=== PATIENT | male | born 1975 | race Caucasian/White ===

== ENCOUNTER 2025-01-28 05:17 | Inpatient (IN) | payer MEDICAID, SELFPAY ==
[2025-01-28] VITALS (18 sets, daily range): BP systolic 16–159; BP diastolic 81–108; BMI 24.7; BMI 24.6
--- NOTE | 2025-01-28 00:42 | ED.GENMED ---
History of Present Illness
<Cliff Spence MD - Last Filed: 01/30/25 12:22>
General
Chief Complaint: Abdominal Pain
Source: patient
Exam Limitations: none
Time Seen by Provider: 01/28/25 00:28
Nursing documentation reviewed up to this point in time: agreed with
History of Present Illness
History of Present Illness:
Patient status post cholecystectomy in 2022 secondary to gallstone pancreatitis, presents to ED secondary to persistent intermittent upper abdominal pain associated with nausea and decreased appetite over the past 6 months. Abdominal pain described
as dull initially, which has become sharp today. Abdominal pain is similar to what she experienced 2 years ago when she had her gallbladder removed. Denies trauma. Denies fever or chills. Denies diarrhea. Denies recent change in medications or
diet. Denies difficulty urination. Denies back pain.
Review of Systems
<Cliff Spence MD - Last Filed: 01/30/25 12:22>
Review of Systems
Allergies reviewed?: Yes
All Other Systems: ROS reviewed and negative except as documented in HPI and ROS
Constitutional: Reports no symptoms; Denies fever
ABD/GI: Reports abdominal pain and nausea; Denies vomiting or diarrhea
: Reports no symptoms
Musculoskeletal: Reports no symptoms
Skin: Reports no symptoms
Neurological: Reports no symptoms
Phy Exam
<Cliff Spence MD - Last Filed: 01/30/25 12:22>
Physical Exam
Physical Exam:
Physical Exam
General: moderate painful distress, not acutely ill. afebrile
Head: nc/at. eomi
Neck: supple. normal range of motion
Heart: tachycardic
Lungs: no acute respiratory distress. clear bilaterally
Abdomen: normal bowel sounds. moderate epigastric/RUQ tenderness to palpation
Neuro: alert and oriented x 3. no focal neurological deficits
Skin: no rash
Psychiatric: well kept. interactive and cooperative
Extremities: no edema. no calf tenderness.
Course
<Cliff Spence MD - Last Filed: 01/30/25 12:22>
Orders/Labs/Results
Orders:
Orders
01/28/25 00:38
HYDROmorphone [Dilaudid] 0.5 mg IV NOW STA
Test Result ONCE
US Abdomen Complete/Upper Urgent
Comment:
Reason For Exam: RUQ pain
01/28/25 00:39
0.9% Sodium Chloride 500 ml [Nss] 500 ml IV BOLUS
Ondansetron Injectable [Zofran] 4 mg IV NOW STA
Pantoprazole [Protonix IV] 40 mg IV NOW STA
01/28/25 00:50
Complete Blood Count/With Diff Urgent
Comprehensive Metabolic Panel Urgent
Ferritin Urgent
Comment: ADD ON
HCG, Serum Qualitative Screen Urgent
Iron Urgent
Lipase Urgent
Total Iron Binding Urgent
01/28/25 01:40
Iohexol [Omnipaque] See Protocol PO NOW STA
01/28/25 01:41
CT Abd/pel W Iv And Oral Contr Urgent
Comment:
Reason For Exam: abd pain w abnormal US
01/28/25 04:12
HYDROmorphone [Dilaudid] 1 mg IV NOW STA
01/28/25 04:57
Admit/Transfer Patient As Directed
Co-Sign Provider:
Level of Care: Inpatient admission
Assign to:: Telemetry
Physician / Group: Pierre
Diagnosis: Abd Pain, Metastatic Disease
Reason for Telemetry: Arrhythmia
Date to Stop Telemetry: 01/31/25
Time to Stop Telemetry: 11:00
Reason for Hospitalization: Abd Pain, Metastatic Disease
Expected length of stay greater than two midnights?: Yes
ELOS- Estimated Length of Stay in days: 4
I certify the patient meets the requirements for IP care: Yes
01/28/25 04:58
PRN Pain Medication Management As Directed
May give lesser potent ordered pain med per pt: Yes
preference::
Protocol:: Medication orders for pain may be administered in a
manner that supports deferring to patient preference
when the pt is:
- Requesting an ordered lesser potent pain medication.
Least to most potent pain medications are defined
as: acetaminophen < NSAID < tramadol < opioids
(morphine, oxycodone, hydromorphone).
- Requesting a lesser dose of the same medication IF
ORDERED.
- Requesting a less intrusive route of administration
if both routes are prescribed by the provider (PO <
IV).
01/28/25 05:06
Code Status As Directed
Resuscitation Status: Full Code
01/28/25 Breakfast
NPO
Allow oral meds: Yes
Allow clear liquids: Sips of Clears
01/28/25 06:25
0.9% Sodium Chloride 1000 ml [Nss] 1,000 ml IV 125 mls/hr
Acetaminophen [Tylenol] 650 mg PO Q4HPRN PRN
HYDROmorphone [Dilaudid] 0.5 mg IV Q4HPRN PRN
Ondansetron Injectable [Zofran] 4 mg IV Q6HPRN PRN
Oxycodone [Roxicodone] 5 mg PO Q4HPRN PRN
01/28/25 06:25
Consult Notification Routine
Specialty to Notify: Gastroenterology
Date consulting provider notified: 01/28/25
Time consulting provider notified: 07:44
Notified:: Provider
Comment: Janay Mancini
Consult Notification Routine
Specialty to Notify: Oncology
Date consulting provider notified: 01/28/25
Time consulting provider notified: 07:47
Notified:: Provider
Comment: larry cantu
GASTROINTESTINAL CONSULT Routine
Consulting Provider: Fredis Coronado
Was physician already notified: No
Reason for consult: Suspected Gastro-esophageal malignancy with metastases
ONCOLOGY CONSULT Routine
Consulting Provider: Larry Cantu
Was physician already notified: No
Reason for consult: Suspected Gastroesophageal Cancer, Metastatic Disease
Activity As Directed
Activity Level: Ambulate
With Assistance
I/O [Intake/ Output] As Directed
Frequency: Per unit guidelines
Pneumatic Compression Sleeves As Directed
Type: Knee high
Vital Signs As Directed
Frequency: Per unit guidelines
Weight As Directed
Frequency: Daily
Oxygen Therapy [O2 Therapy] [RESP] Routine
Titrate/Wean O2 to maintain O2 sat greater than (%): 94
DX Deep Vein Thrombosis Video Routine
01/28/25 08:00
Pantoprazole [Protonix IV] 40 mg IV DAILY
01/28/25 17:24
Urinalysis Reflex To Culture Urgent
Date Specimen was Collected: 01/28/25
Time Specimen was Collected: 17:22
01/29/25 06:16
Complete Blood Count/No Diff IN AM
Magnesium IN AM
Phosphorus IN AM
01/31/25 11:00
DC Protocol for Telemetry ONCE
Abnormal Lab Results
01/28/25
00:50
WBC 20.0 H 10^3/uL
(4.8-10.8)
RBC 3.84 L 10^6/uL
(4.70-6.10)
Hgb 10.3 L g/dL
(13.0-18.0)
Hct 32.8 L %
(39.0-52.0)
MCH 26.8 L pg
(27.0-31.0)
MCHC 31.4 L g/dL
(33.0-37.0)
RDW 15.7 H %
(11.5-14.5)
Plt Count 1006 H 10^3/uL
(130-400)
Abs Immat Gran (auto) 0.1 H 10^3/uL
(0-0.05)
Absolute Neuts (auto) 15.3 H 10^3/uL
(1.4-6.5)
Absolute Monos (auto) 1.8 H 10^3/uL
(0.1-0.6)
Neutrophils % 76.1 H %
(42.2-75.2)
Lymphocytes % 13.7 L %
(20.5-51.1)
Sodium 134 L mmol/L
(135-145)
Creatinine 0.5 L mg/dL
(0.7-1.3)
Glucose 115 H mg/dl
(70-99)
Iron 32 L ug/dl
(49-181)
TIBC 249 L ug/dl
(261-462)
% Saturation 12 L %
(20-50)
Ferritin 735.0 H ng/ml
(17.9-464.0)
AST 88 H U/L
(17-59)
ALT 56 H U/L
(0-50)
Alkaline Phosphatase 870 H U/L
(38-126)
01/28/25 00:50
01/28/25 00:50
Vital Signs
Initial and Last Documented VS:
Initial Vital Signs
Temp Pulse Resp BP Pulse Ox
98.5 F 124 16 145/105 98
01/28/25 00:13 01/28/25 00:13 01/28/25 00:13 01/28/25 00:13 01/28/25 00:13
Last Documented Vital Signs
Temp Pulse Resp BP Pulse Ox
99.3 F 101 16 140/90 93
01/30/25 11:15 01/30/25 11:15 01/30/25 11:15 01/30/25 11:15 01/30/25 11:15
<Lucho Hood, DO - Last Filed: 01/28/25 04:36>
Orders/Labs/Results
Orders:
Orders
01/28/25 00:38
HYDROmorphone [Dilaudid] 0.5 mg IV NOW STA
Test Result ONCE
US Abdomen Complete/Upper Urgent
Comment:
Reason For Exam: RUQ pain
01/28/25 00:39
0.9% Sodium Chloride 500 ml [Nss] 500 ml IV BOLUS
Ondansetron Injectable [Zofran] 4 mg IV NOW STA
Pantoprazole [Protonix IV] 40 mg IV NOW STA
01/28/25 00:50
Complete Blood Count/With Diff Urgent
Comprehensive Metabolic Panel Urgent
Ferritin Urgent
Comment: ADD ON
HCG, Serum Qualitative Screen Urgent
Iron Urgent
Lipase Urgent
Total Iron Binding Urgent
01/28/25 01:40
Iohexol [Omnipaque] See Protocol PO NOW STA
01/28/25 01:41
CT Abd/pel W Iv And Oral Contr Urgent
Comment:
Reason For Exam: abd pain w abnormal US
01/28/25 04:12
HYDROmorphone [Dilaudid] 1 mg IV NOW STA
01/28/25 04:57
Admit/Transfer Patient As Directed
Co-Sign Provider:
Level of Care: Inpatient admission
Assign to:: Telemetry
Physician / Group: Pierre
Diagnosis: Abd Pain, Metastatic Disease
Reason for Telemetry: Arrhythmia
Date to Stop Telemetry: 01/31/25
Time to Stop Telemetry: 11:00
Reason for Hospitalization: Abd Pain, Metastatic Disease
Expected length of stay greater than two midnights?: Yes
ELOS- Estimated Length of Stay in days: 4
I certify the patient meets the requirements for IP care: Yes
01/28/25 04:58
PRN Pain Medication Management As Directed
May give lesser potent ordered pain med per pt: Yes
preference::
Protocol:: Medication orders for pain may be administered in a
manner that supports deferring to patient preference
when the pt is:
- Requesting an ordered lesser potent pain medication.
Least to most potent pain medications are defined
as: acetaminophen < NSAID < tramadol < opioids
(morphine, oxycodone, hydromorphone).
- Requesting a lesser dose of the same medication IF
ORDERED.
- Requesting a less intrusive route of administration
if both routes are prescribed by the provider (PO <
IV).
01/28/25 05:06
Code Status As Directed
Resuscitation Status: Full Code
01/28/25 Breakfast
NPO
Allow oral meds: Yes
Allow clear liquids: Sips of Clears
01/28/25 06:25
0.9% Sodium Chloride 1000 ml [Nss] 1,000 ml IV 125 mls/hr
Acetaminophen [Tylenol] 650 mg PO Q4HPRN PRN
HYDROmorphone [Dilaudid] 0.5 mg IV Q4HPRN PRN
Ondansetron Injectable [Zofran] 4 mg IV Q6HPRN PRN
Oxycodone [Roxicodone] 5 mg PO Q4HPRN PRN
01/28/25 06:25
Consult Notification Routine
Specialty to Notify: Gastroenterology
Date consulting provider notified: 01/28/25
Time consulting provider notified: 07:44
Notified:: Provider
Comment: Janay Mancini
Consult Notification Routine
Specialty to Notify: Oncology
Date consulting provider notified: 01/28/25
Time consulting provider notified: 07:47
Notified:: Provider
Comment: larry cantu
GASTROINTESTINAL CONSULT Routine
Consulting Provider: Fredis Coronado
Was physician already notified: No
Reason for consult: Suspected Gastro-esophageal malignancy with metastases
ONCOLOGY CONSULT Routine
Consulting Provider: Larry Cantu
Was physician already notified: No
Reason for consult: Suspected Gastroesophageal Cancer, Metastatic Disease
Activity As Directed
Activity Level: Ambulate
With Assistance
I/O [Intake/ Output] As Directed
Frequency: Per unit guidelines
Pneumatic Compression Sleeves As Directed
Type: Knee high
Vital Signs As Directed
Frequency: Per unit guidelines
Weight As Directed
Frequency: Daily
Oxygen Therapy [O2 Therapy] [RESP] Routine
Titrate/Wean O2 to maintain O2 sat greater than (%): 94
DX Deep Vein Thrombosis Video Routine
01/28/25 08:00
Pantoprazole [Protonix IV] 40 mg IV DAILY
01/28/25 17:24
Urinalysis Reflex To Culture Urgent
Date Specimen was Collected: 01/28/25
Time Specimen was Collected: 17:22
01/29/25 06:16
Complete Blood Count/No Diff IN AM
Magnesium IN AM
Phosphorus IN AM
01/31/25 11:00
DC Protocol for Telemetry ONCE
Abnormal Lab Results
01/28/25
00:50
WBC 20.0 H 10^3/uL
(4.8-10.8)
RBC 3.84 L 10^6/uL
(4.70-6.10)
Hgb 10.3 L g/dL
(13.0-18.0)
Hct 32.8 L %
(39.0-52.0)
MCH 26.8 L pg
(27.0-31.0)
MCHC 31.4 L g/dL
(33.0-37.0)
RDW 15.7 H %
(11.5-14.5)
Plt Count 1006 H 10^3/uL
(130-400)
Abs Immat Gran (auto) 0.1 H 10^3/uL
(0-0.05)
Absolute Neuts (auto) 15.3 H 10^3/uL
(1.4-6.5)
Absolute Monos (auto) 1.8 H 10^3/uL
(0.1-0.6)
Neutrophils % 76.1 H %
(42.2-75.2)
Lymphocytes % 13.7 L %
(20.5-51.1)
Sodium 134 L mmol/L
(135-145)
Creatinine 0.5 L mg/dL
(0.7-1.3)
Glucose 115 H mg/dl
(70-99)
Iron 32 L ug/dl
(49-181)
TIBC 249 L ug/dl
(261-462)
% Saturation 12 L %
(20-50)
Ferritin 735.0 H ng/ml
(17.9-464.0)
AST 88 H U/L
(17-59)
ALT 56 H U/L
(0-50)
Alkaline Phosphatase 870 H U/L
(38-126)
01/28/25 00:50
01/28/25 00:50
Vital Signs
Initial and Last Documented VS:
Initial Vital Signs
Temp Pulse Resp BP Pulse Ox
98.5 F 124 16 145/105 98
01/28/25 00:13 01/28/25 00:13 01/28/25 00:13 01/28/25 00:13 01/28/25 00:13
Last Documented Vital Signs
Temp Pulse Resp BP Pulse Ox
99.3 F 101 16 140/90 93
01/30/25 11:15 01/30/25 11:15 01/30/25 11:15 01/30/25 11:15 01/30/25 11:15
<Cliff Spence MD - Last Filed: 01/30/25 12:22>
MDM/Problems Addressed
MDM/Problems Addressed:
Ultrasound abdomen report reviewed, concerning for potential metastatic lesions. As such, CT abdomen pelvis with oral and IV contrast ordered. Initial pain improved with treatment
<Cliff Spence MD - Last Filed: 01/30/25 12:22>
*Pulse Oximetry
SaO2: 100
Oxygen Mode of Delivery: Room air
Patient hypoxic: no
*Critical Care Note
Total Time (30-74mins, 75-104mins- exclusive of procedures): Not Applicable
<Lucho Hood DO - Last Filed: 01/28/25 04:36>
Update Note
Update Note:
NAME: PRAVEEN VERDE
DATE OF EXAM: 01/28/2025
Patient No: [id number]
Physician: HELADIO
Date of : 1975
Past Medical History (entered by Technologist):
Reason For Exam (entered by Technologist):
Other Notes (entered by Technologist): Pt having intermitted RUQ abdominal pain and nauea for months; got so bad tonight she couldn't sleep. Nausea, no vomiting, some dry heaves. PMH of cholecystectomy years ago.
Additional Information (per [facility]iologist):
CT abdomen and pelvis with contrast
IMPRESSION:
Circumferential infiltrative mass involving the GE junction and gastric cardia
Appears to involve the diaphragmatic silviano
Few small regional lymph nodes
Innumerable low-attenuation liver metastases
Large expansile, destructive metastasis in the right anterior ninth rib
CBD stent in place
No biliary ductal dilation
Findings discussed with Dr. Hood
Case finalized on 01/28/25 04:14 EDT
Leonardo Donovan M.D.
This report has been electronically signed and verified by the Radiologist whose name is printed above.
I discussed the CAT scan findings with the patient. She is still requiring large amounts of pain medication. Patient to be admitted to the hospitalist service for continued pain management and further consultation.
ED Attending Note
<Cliff Spence MD - Last Filed: 01/30/25 12:22>
-
Portions of this chart may have been created with voice recognition software.� Occasional wrong word or��sound alike� substitutions may have occurred due to the inherent limitations of voice recognition software.
Discharge Plan
Departure
Patient Disposition: Admit
Date of Disposition: 01/28/25
Time of Disposition: 04:35
Admit to: Med/Surg
Presentation/result/management discussed w/ accepting MD/DO: Hospitalist
Discharge Problem:
Cancer associated pain, Abdominal pain
Interventions
Interventions:
*Risk Screen - Suicide Last Done: 01/28/25 00:13
*General Assessment Last Done: 01/28/25 00:27
*Neglect/Abuse Screening Last Done: 01/28/25 00:13
*ED- Fall Risk Assessment Last Done: 01/28/25 00:13
*ED COVID-19 Vaccine History Last Done: 01/28/25 00:13
*ED Influenza Vaccine History Last Done: 01/28/25 00:13
*Nursing Disposition Last Done: 01/28/25 06:24
[facility] Assessment Last Done: 01/28/25 00:33
Discharge Date and Time
Discharge Date/Time: 01/28/25 06:25
[2025-01-28] MEDS: ZOFRAN 4 MG IV ×2 (01:25→06:44)
[2025-01-28] MEDS: NSS 500 IV (01:26)
[2025-01-28] MEDS: DILAUDID 0.5 MG IV ×2 (01:26→06:44)
[2025-01-28] MEDS: PROTONIX IV 40 MG IV ×2 (01:26→09:10)
[2025-01-28 01:36] LABS: HCG, Serum Qualitative Screen Negative
[2025-01-28 01:41] LABS: ALT (SGPT) 56 U/L (0-50); AST (SGOT) 88 U/L (17-59); Albumin 3.7 g/dl (3.5-5.0); Alkaline Phosphatase 870 U/L (38-126); Blood Urea Nitrogen 17 mg/dl (9-20); Calcium 9.7 mg/dl (8.4-10.2); Carbon Dioxide 22 mmol/L (22-30); Chloride 100 mmol/L (98-107); Estimated Creatinine Clearance > 125 ml/min; Glucose 115 mg/dl (70-99); Lipase 23 U/L (23-300); Potassium 4.5 mmol/L (3.5-5.1); Sodium 134 mmol/L (135-145); Total Protein 7.8 g/dl (6.3-8.2); eGFR > 60.00
[2025-01-28] MEDS: OMNIPAQUE 50 ML PO (01:49)
[2025-01-28 01:53] LABS: Hematocrit 32.8 % (39.0-52.0); Hemoglobin 10.3 g/dL (13.0-18.0); Mean Corp Hgb Conc. 31.4 g/dL (33.0-37.0); Mean Corpuscular Volume 85.4 fL (80.0-94.0); Nucleated Red Blood Cells % 0 % (-); Platelet Count 1006 10^3/uL (130-400); Red Cell Dist. Width 15.7 % (11.5-14.5)
[2025-01-28] MEDS: DILAUDID 1 MG IV ×4 (04:17→23:06)
--- NOTE | 2025-01-28 05:12 | HPS.HSE ---
Family Physician
-
Family Physician: Betina Stauffer
Chief Complaint
-
Abd Pain
History of Present Illness
Patient is a 49y transgender F with PMH significant for psoriatic arthritis who presents to ED complaining of abdominal pain. Patient states that she has had dull, achy RUQ abdominal pain for the past 6-12 months or so. In that timeframe, she
has also had progressive difficulty swallowing and pain with swallowing - such that she eats / drinks very little at present. She has lost about 50 lbs in the past 6 months.
Patient has not noted any fevers / chills. No black / bloody stools.
Patient was last admitted in 2022 for acute cholecystitis / gallstone pancreatitis.
She was on Humira at that time, but lost her insurance shortly thereafter and has not been on any Rx medications for the past 2 years.
She has been taking a regimen of OTC Tylenol and Advil 400mg every 6 hours fairly consistently for the past 2 years.
This evening, her pain became suddenly sharper and more severe, prompting her to present to the ED for further evaluation.
Medical History
Past Medical History
Past Medical History: Reports Other
Additional Past Medical History:
Psoriatic Arthritis
Past Surgical History: Reports Other
Additional Past Surgical History:
Cholecystectomy (11/2022)
ERCP with Sphincterotomy and Plastic CBD Stent (11/2022)
Social History
Tobacco: Former Smoker (Quit smoking 25 years ago.)
Alcohol: None
Family History
Family History: Other (Father: CAD Paternal aunts, uncles, cousins with various malignancies.)
Allergies / Home Medications
Allergies reflects when Allergies were last updated in [facility].
Home Medications with original date entered in [facility]
Allergy/Medication List:
Allergies
Allergy/AdvReac Type Severity Reaction Status Date / Time
No Known Allergies Allergy Verified 01/28/25 00:12
Home Medications
No Meds [No Current Medications] 01/28/25
Review of Systems
-
History Source: Patient
A 12 point ROS was completed and negative except as noted: Yes
Constitutional: Reports Weight Loss and Fatigue; Denies Fever or Chills
EENT: Denies Sore Throat
Respiratory: Denies Cough or Trouble Breathing
Cardiac: Reports Chest Pain
Abdomen/GI: Reports Abdominal Pain, Nausea, Anorexia and Other (Odynophagia); Denies Vomiting, Diarrhea, Constipated, Bloody Stools or Black Stools
: Denies Dysuria or Frequency
Musculoskeletal: Reports Joint Pain; Denies Edema
Neurological: Denies Dizzy or Headache
Psych: Denies Depression or Anxiety
Physical Exam
Vital Signs
Vital Signs
Temp Pulse Resp BP Pulse Ox
98.5 F 124 16 132/92 98
01/28/25 00:13 01/28/25 00:13 01/28/25 00:13 01/28/25 03:00 01/28/25 03:00
Physical Exam
General: Other (Pale appearing 49y F in no acute distress.)
HEENT: Other (Dry MM. Neck supple.)
Respiratory: Clear; No Wheezes, Rales or Rhonchi
Cardiac: S1/S2 and Tachycardia; No Murmur
GI: Soft, Non Distended, Normal Bowel Sounds and Other (Pos tenderness and voluntary guarding RUQ and epigastric areas.)
Musculoskeletal: No Clubbing, No Cyanosis and Other (Pinpoint tenderness over R anterior ribs (8-10).)
Neuro: AO x 3
Laboratory Results
-
01/28/25 00:50
01/28/25 00:50
Laboratory Results
Total Bilirubin 0.8 mg/dl (0.2-1.3) 01/28/25 00:50
AST 88 U/L (17-59) H 01/28/25 00:50
ALT 56 U/L (0-50) H 01/28/25 00:50
Alkaline Phosphatase 870 U/L (38-126) H 01/28/25 00:50
Lipase 23 U/L (23-300) 01/28/25 00:50
Impression/Plan
-
A/P: Patient is a 49y transgender F with PMH significant for psoriatic arthritis not currently on active therapy who presents to ED complaining of abdominal pain.
Abdominal Pain
Odynophagia
Weight Loss
Anemia
Leukocytosis
Thrombocytosis
- Admit for further evaluation and treatment.
- CT scan done in the ED this evening shows circumferential mass at the GE junction / gastric cardia with extension to include the diaphragm and evidence of metastatic disease to the liver (multiple) and R 9th rib.
- History significant for progressive odynophagia and steady NSAID use x 2 years.
- Likely GI malignancy with evidence of metastases.
- GI evaluation / probable endoscopic exam and biopsies.
- Pain control / supportive care.
- NPO, IVFs for now.
- Oncology evaluation for additional recommendations / treatment plan post-biopsy results.
- Check iron studies - suspect chronic blood-loss anemia due to GI malignancy.
- Follow H&H and transfuse if needed.
Psoriatic Arthritis
- Not currently on Humira or other DMARD.
- Supportive care / pain control.
DVT Prophylaxis: SCDs
Code Status: Full
[2025-01-28] MEDS: NSS 1000 IV (06:42)
--- NOTE | 2025-01-28 06:49 | CON.GI ---
Addendum entered and electronically signed by Fredis Coronado DO 01/28/25 12:22:
I saw and examined the patient.
The SCHEDULING ASSISTANT's note was reviewed and I agree with the note.
Comment: Patient is a 49 y.o transgender female with past medical history significant for prior gallstone pancreatitis (s/p prior ERCP and lap yemi 2022) who represented with abdominal pain and dysphagia. Reports significant NSAID use as well over
the past several months for her pain. Primarily over her RUQ but denies any fevers, chills or other constitutional symptoms. Upon review, appears she was supposed to have stent removed back in 2022 however unfortunately never followed-up. Also
endorsing unintentional weight loss as well over the past 6 months. Given her worsening RUQ pain, presented to the ED for further evaluation. Labs on admission revealed chronically elevated leukocytosis along with elevated LFTs with AST 88, ALT 56
and ALP 870 with T Bili 0.8. Abdominal US on 01/28/25 with innumerable hypoechoic lesions throughout the liver, new compared to prior CT, concerning for hepatic metastases and evidence of prior cholecystectomy. CT Abd/pelvis on 01/28/25 again
revealed innumerable hepatic mets and mild hepatic enlargement along with bowel wall thickening at the GE-junction concern for esophageal carcinoma as well as enlarge LNs at the GE junction and expansile mets along the R rib. Previous concern for
possible PE given tachycardia and SOB however CT PE protocol negative. Clinically, her presentation is highly concerning for malignancy given her imaging suggestive of a GE-junction mass along with her imaging findings concerning for liver mets
along with her elevated LFTs with predominant elevations in ALP (infiltrative type pattern). Would benefit from an expedited EGD with EUS for further evaluation given this concern and for staging purposes as well given the lymphadenopathy.
Additionally, can coordinate stent removal as well given her previous retained CBD stent however without any symptoms to suggest biliary sepsis. Ultimately, pending her EGD would likely benefit from Oncology evaluation once her endoscopy has been
performed
Recommendations:
- Keep NPO
- Empiric PPI q daily
- Trend LFTs q daily
- Plan for EGD with EUS with Dr. Sharma today, 01/28/25, see same day EGD report for additional findings/recommendations
- Agree with checking tumor markers- AFP, CEA and CA 19-9
- Pending EGD/EUS, would recommend Oncology consult for further evaluation
- See rest of care as outlined below
GI will continue to follow. Discussed with primary internal medicine team. Please call with any questions or concerns.
Addendum entered and electronically signed by MAYRA Dumont 01/28/25 09:21:
with tachycardia and some complaints of shortness of breath and night sweats CT PE protocol added after review with medical team. Also added INR, AFP, CEA and Ca 19-9.
Original Note:
Consultation
-
Date/Time Consultation Requested: 01/28/25624
Date/Time Consultation Performed: 01/28/25 0650
Requesting Provider: Ramiro Jay DO
Performing Provider: MAYRA Flores, Fredis Coronado DO
Reason for Consultation: abnormal imaging
Medical History
Chief Complaint / HPI
Chief Complaint: abdominal pain
History of Present Illness:
Pt is 49yo with hx transgender without prior surgery, depression, anxiety, hypertriglyceridemia, asthma, psoriatic arthritis, gallstone pancreatitis with yemi and ERCP with stent placement in 2022 now presents with RUQ pain for last 6-12 months
with dysphagia and has been taking Tylenol and Advil for pain. In further review with patient after ERCP in 2022 was due for follow up for stent removal but did not return. Patient admits to loss of insurance. Pt was doing well til last year
onset of pain with wt loss up to 50 lb. Prior to admission was only taking milk and NSAID. Pain symptoms increased with severe right sided pain and presents to ER. On admission US and CT with concern for GE junction mass, liver mets, and rib met
with small nodes and CBD stent in place. labs with WBC 20,000, hbg 10.3, platelets 1006, Na 134, iron 32, TIBC 249, % sat 12, bili 0.8, AST 88, ALT 56, alk phos 870.
Pt otherwise admits to nausea with dry heaves, shortness of breath worse with steps, but denies dysphagia, GERD, hematemesis, diarrhea, constipation, blood or black in stool. No prior EGD/colon but had EUS with ERCP in 2022 with normal stomach
and esophagus at that time. No anticoagulation but admit to NSAID and Tylenol use prior to admission.
01/28/25 US abdomen - preliminary- innumerable heterogeneous hypoechoic masses in liver concerning for mets, post yemi, no bile duct dilatation, right kidney normal no free fluid
01/28/25 CT a/p - circumferential mass at GE junction and gastric cardia appears to involve diaphragmatic silviano, few small lymph nodes innumerable low attenuation liver mets, large expansile destructive mets right anterior ninth ribs, CBD stent in
place, no biliary ductal dilatation
final reading
1. Innumerable hepatic metastases. Mild hepatic enlargement.
2. Bowel wall thickening at the gastroesophageal junction, likely reflective of esophageal carcinoma.
3. Enlarged lymph nodes near the gastroesophageal junction, measuring up to 1.2 cm in diameter.
4. Expansile metastasis within the right anterior ninth rib, measuring 5.8 cm in greatest dimension.
Past Medical History
Past Medical History: Asthma, Psychiatric (anxiety,depression, transgender) and Other (psoriatic arthritis, gallstone pancreatitis )
Past Surgical History: Cholecystectomy and Other (biliary stent )
Social History
Tobacco: Former Smoker (quit age 25)
Alcohol: Occasional
Drug: None
Living: With Family (father )
Employment: Not Employed
Family History
Family History: Other (aunt with cancer )
Allergies / Home Medications
Allergy/AdvReac Type Severity Reaction Status Date / Time
No Known Allergies Allergy Verified 01/28/25 00:12
�Medication �Instructions �Recorded
No Meds [No Current Medications] 01/28/25
Review of Systems
-
History Source: Patient
Constitutional: Reports Weight Loss and Fatigue
EENT: Reports No Symptoms
Respiratory: Reports Trouble Breathing (with activity )
Abdomen/GI: Reports Abdominal Pain, Nausea and Other (decreased appetite )
: Reports No Symptoms
Musculoskeletal: Reports No Symptoms
Skin: Reports No Symptoms
Neurological: Reports No Symptoms and Weakness
Endocrine: Reports No Symptoms
Hematologic/Lymphatic: Reports No Symptoms
Vital Signs
Temp Pulse Resp BP Pulse Ox
98.3 F 134 20 159/98 94
01/28/25 06:39 01/28/25 06:39 01/28/25 06:39 01/28/25 06:39 01/28/25 06:39
Physical Exam
Exam
General: Other (pale appearing )
HEENT: Normocephalic and Anicteric
Respiratory: Clear
Cardiac: Other (tachy 106 on exam )
GI: Soft, Tender (mild with some increased pain right rib) and Distended (mild )
Musculoskeletal: No Clubbing and No Cyanosis
Skin: Warm and Dry
Neuro: Awake, Alert and AO x 3
Psych: Calm
Results
WBC 20.0 10^3/uL (4.8-10.8) H 01/28/25 00:50
Hgb 10.3 g/dL (13.0-18.0) L 01/28/25 00:50
Hct 32.8 % (39.0-52.0) L 01/28/25 00:50
MCV 85.4 fL (80.0-94.0) 01/28/25 00:50
Plt Count 1006 10^3/uL (130-400) H 01/28/25 00:50
Absolute Neuts (auto) 15.3 10^3/uL (1.4-6.5) H 01/28/25 00:50
Sodium 134 mmol/L (135-145) L 01/28/25 00:50
Potassium 4.5 mmol/L (3.5-5.1) 01/28/25 00:50
Chloride 100 mmol/L (98-107) 01/28/25 00:50
Carbon Dioxide 22 mmol/L (22-30) 01/28/25 00:50
BUN 17 mg/dl (9-20) 01/28/25 00:50
Creatinine 0.5 mg/dL (0.7-1.3) L 01/28/25 00:50
Calcium 9.7 mg/dl (8.4-10.2) 01/28/25 00:50
Total Bilirubin 0.8 mg/dl (0.2-1.3) 01/28/25 00:50
AST 88 U/L (17-59) H 01/28/25 00:50
ALT 56 U/L (0-50) H 01/28/25 00:50
Alkaline Phosphatase 870 U/L (38-126) H 01/28/25 00:50
Lipase 23 U/L (23-300) 01/28/25 00:50
Diagnostic Image Results:
01/28/25 US abdomen - preliminary- innumerable heterogeneous hypoechoic masses in liver concerning for mets, post yemi, no bile duct dilasttion, right kidney normal no free fluid
01/28/25 CT a/p - circumferential mass at GE junction and gastric cardia appears to involve diaphragmatic silviano, few small lymph nodes innumerable low attenuation liver mets, large expansile destructive mets right anterior ninth ribs, CBD stent in
place, no biliary ductal dilatation
final reading
1. Innumerable hepatic metastases. Mild hepatic enlargement.
2. Bowel wall thickening at the gastroesophageal junction, likely reflective of esophageal carcinoma.
3. Enlarged lymph nodes near the gastroesophageal junction, measuring up to 1.2 cm in diameter.
4. Expansile metastasis within the right anterior ninth rib, measuring 5.8 cm in greatest dimension.
Prior GI Procedures:
EGD: with EUS
Colonoscopy: none
11/22/22- EUS - Normal esophagus.
- No gross lesions in the entire stomach.
- Normal duodenal bulb, first portion of the duodenum
and second portion of the duodenum.
- There was no sign of significant pathology in the
pancreatic body.
- One stone was visualized endosonographically in the
distal common bile duct at the level of ampulla.
- No specimens collected.
11/22/22- ERCp-- Santhosh - The major papilla appeared normal.
- A filling defect consistent with a stone was seen on
the cholangiogram.
- Choledocholithiasis was found. Complete removal was
accomplished by biliary sphincterotomy and balloon
extraction.
- A biliary sphincterotomy was performed.
- The biliary tree was swept.
- One plastic stent was placed into the common bile
duct.
Assessment / Plan
-
Pt is 49yo with hx transgender without prior surgery, depression, anxiety, hypertriglyceridemia, asthma, psoriatic arthritis, gallstone pancreatitis with yemi and ERCP with stent placement in 2022 now presents with RUQ pain for last 6-12 months
with dysphagia and has been taking Tylenol and Advil for pain. In further review with patient after ERCP in 2022 was due for follow up for stent removal but did not return. Patient admits to loss of insurance. Pt was doing well til last year
onset of pain with wt loss up to 50 lb. Prior to admission was only taking milk and NSAID. Pain symptoms increased with severe right sided pain and presents to ER. On admission US and CT with concern for GE junction mass, liver mets, and rib met
with small nodes and CBD stent in place. labs with WBC 20,000, hbg 10.3, platelets 1006, Na 134, iron 32, TIBC 249, % sat 12, bili 0.8, AST 88, ALT 56, alk phos 870. Pt otherwise admits to nausea with dry heaves, shortness of breath worse with
steps, but denies dysphagia, GERD, hematemesis, diarrhea, constipation, blood or black in stool. No prior EGD/colon but had EUS with ERCP in 2022 with normal stomach and esophagus at that time. No anticoagulation but admit to NSAID and Tylenol use
prior to admission.
01/28/25 US abdomen - preliminary- innumerable heterogeneous hypoechoic masses in liver concerning for mets, post yemi, no bile duct dilatation, right kidney normal no free fluid
01/28/25 CT a/p - circumferential mass at GE junction and gastric cardia appears to involve diaphragmatic silviano, few small lymph nodes innumerable low attenuation liver mets, large expansile destructive mets right anterior ninth ribs, CBD stent in
place, no biliary ductal dilatation
final read: 1. Innumerable hepatic metastases. Mild hepatic enlargement.2. Bowel wall thickening at the gastroesophageal junction, likely reflective of esophageal carcinoma.3. Enlarged lymph nodes near the gastroesophageal junction, measuring up to
1.2 cm in diameter.4. Expansile metastasis within the right anterior ninth rib, measuring 5.8 cm in greatest dimension.
-abdominal pain with right sided rib pain
-concern for GE junction mass with mets on imaging
-tachycardia
-wt loss
-anemia
-leukocytosis
-thrombocytosis
-increased LFT's
-hx prior gallstone pancreatitis EUS/ERCP 2022 lost in follow up for stent removal
other med problems:
transgender without prior surgery, depression, anxiety, hypertriglyceridemia, asthma, psoriatic arthritis
PLAN:
etiology for symptoms concern for metastatic process-- GE junction mass with mets to liver, rib, nodes vs infectious as pt lost in follow up for biliary stent removal vs other
will review imaging with Dr. sharma- for EGD +/- EUS/ERCP to further eval for mass, stent removal
NPO
cont PPI
pneumatic compression stocking for prophylaxis
trend labs
for oncology eval
Pt updated on imaging and tentative plan for procedures today
reviewed with nursing staff
-
-
Thank you for consultation and allowing me to participate in the patient's care. Please call the sales operations coordinator GI physician during the after hours with any questions or concerns.
[2025-01-28 07:22] LABS: Iron 32 ug/dl (49-181)
[2025-01-28 07:32] LABS: Total Iron Binding Capacity 249 ug/dl (261-462)
--- NOTE | 2025-01-28 07:34 | W.PN.HOSP.TC ---
Today's Communication/Plan
-
Dilaudid 1 mg / 3 hours for severe pain
GI reconsulted for colonoscopy and a future biopsy follow-up
IV fluids 1 LR
Assessment / Plan
Assessment / Plan
49-year-old transgender F with past medical history of gallstone pancreatitis (cholecystectomy 2022], significant psoriatic arthritis on Humira 2 years ago(not taking because she lost her insurance) presented with abdominal pain.
# Abdominal pain secondary to CT scanning findings of metastasis:
WBC 20.0 high but WNL, Hb 10.3, platelet count 1006 high
Sodium 134 l, creatinine 0.5, glucose 115 high,
Iron studies: Iron 32 low, TIBC 249 low, saturation 12 low---chronic disease induced anemia.
01/28/25 US abdomen - preliminary- innumerable heterogeneous hypoechoic masses in liver concerning for mets, post yemi, no bile duct dilatation, right kidney normal no free fluid
01/28/25 CT a/p - circumferential mass at GE junction and gastric cardia appears to involve diaphragmatic silviano, few small lymph nodes innumerable low attenuation liver mets, large expansile destructive mets right anterior ninth ribs, CBD stent in
place, no biliary ductal dilatation
final reading
1. Innumerable hepatic metastases. Mild hepatic enlargement.
2. Bowel wall thickening at the gastroesophageal junction, likely reflective of esophageal carcinoma.
3. Enlarged lymph nodes near the gastroesophageal junction, measuring up to 1.2 cm in diameter.
4. Expansile metastasis within the right anterior ninth rib, measuring 5.8 cm in greatest dimension.
Currently on n.p.o.
IVF now NS receiving.
Monitor H&H,
GI consulted: Planning for scopy after the clearance of PE/tachycardia.
Dilaudid 1 mg / 3 hours for severe pain
GI reconsulted for colonoscopy and a future biopsy follow-up
IV fluids 1 LR
# Tachycardia:
BP 140/96, NE 130.
NE 130 regular rhythm, no murmurs.
Not on thyroid medications.
Ordered EKG.
Planning for CT scan chest with contrast but given the symptoms of tachycardia, shortness of breath as a differential diagnosis of pulmonary emboli.
# Psoriatic arthritis:
Patient currently not taking Humira.
Occasionally taking Tylenol.
DVT: SCDs
Code: Full
Anticipated Discharge: 24 - 48 hours
Subjective/Interval History
-
Date of Service: January 28, 2025
49-year-old transgender admitted to ER today trial: 48 with recurrent abdominal pain right upper quadrant, dull in nature, nonradiating for the past 6 months. Associated with nausea, and currently taking liquid form foods. Patient lost 50 pounds,
concern for loss of appetite, pain on her back, spine.
Currently the patient has no concern for chest pain, palpitation,dysphagia, GERD, hematemesis, diarrhea, constipation, blood or black in the stools, dizziness, fever, chills.
Objective Data
-
Labs:
Laboratory Results
01/28/25
00:50
WBC 20.0 H
Hgb 10.3 L
Hct 32.8 L
Plt Count 1006 H
Sodium 134 L
Potassium 4.5
Chloride 100
Carbon Dioxide 22
BUN 17
Creatinine 0.5 L
Glucose 115 H
Calcium 9.7
Total Bilirubin 0.8
AST 88 H
ALT 56 H
Alkaline Phosphatase 870 H
Vital Signs:
Vital Signs
Temp Pulse Resp BP Pulse Ox
98.3 F 134 20 159/98 94
01/28/25 06:39 01/28/25 06:39 01/28/25 06:39 01/28/25 06:39 01/28/25 06:39
Review of Systems
-
History Source: Patient
All other systems: Reviewed and negative
Physical Exam
-
General: Pain (07/24)
Respiratory: Clear to Auscultation
Cardiac: Regular Rhythm and Tachycardic
GI: Soft, Nondistended and Tender (Upper quadrants)
Musculoskeletal: No Clubbing
Neuro: AO x 3
Psych: Calm
[2025-01-28] MEDS: NSS (PRESERVATIVE FREE) 10 ML IV (09:11)
[2025-01-28 09:44] LABS: INR 1.20; PT 15.5 Sec (11.4-14.6)
--- NOTE | 2025-01-28 10:40 | PTCARENOTE ---
Patient c/o 11/24 right rib pain. Pain med not due yet. Physician made aware, order obtained for a dose of Dilaudid now.
[2025-01-28 11:30] LABS: CEA 534 ng/ml
--- NOTE | 2025-01-28 12:13 | PTCARENOTE ---
Patient having difficulty voiding. Patient able to void small amounts at a time. Bladder scanned for 386. Physician made aware, order for St Cath protocol.
--- NOTE | 2025-01-28 12:35 | CON.ONC ---
Documented by User: Flora Almazan MD, Resident 01/28/25 14:21
Consultation
-
Date Consultation Requested: 01/28/25
Date Consultation Performed: 01/28/25
Requesting Provider: Ramiro Jay DO
Performing Provider: Larry Cantu MD; Flora Almazan MD
Reason for Consultation: Suspected GE cancer
Impression
Impression
Abnormal CT findings: innumerable liver lesion with mild hepatomegaly, GEJ wall thickening with adjacent lymphadenopathy, expansile lesion in the right anterior 9th rib
Chronic leukocytosis
Iron Deficiency Anemia
Thrombocytosis
Elevated LFTs
Plan
Plan
WBC 20, Hgb 10.3, Iron 32, TIBC 249, %Sat 12, Platelet 1006, MPV normal , AST 88, ALT 56, ALP 870, CEA 534
-Planned EGD with EUS with Dr. Trevizo today-- await results
-Tumor markers- AFP, CA 19-19 pending
-Continue to trend CBC
-Will continue to follow with you
Patient History
History of Present Illness
The patient is 49-year-old MTF with a past medical history significant for psoriatic arthritis, major depressive disorder, and gallstone pancreatitis s/p ERCP and laparoscopic cholecystectomy, presenting with worsening abdominal pain.
The patient reports a 6�12 month history of generalized, persistent abdominal aching pain radiating to the back, chest and flank area that intermittently intensifies, with maximal pain localized to the right upper quadrant PS 6/10. Symptoms are
exacerbated by solid food intake and partially relieved with Tylenol and Advil. Over the past 6 months, the patient has experienced an unintentional ~50-pound weight loss and has mostly been limiting diet to liquid intake to avoid triggering the
abdominal pain. Intermittent diaphoresis also noted.
Yesterday, the pain acutely worsened into a sharp, stabbing pain rated 7-9/10, associated with dry heaves, thus prompting evaluation.
The patient denies fever, hematemesis, melena, hematochezia, vomiting, odynophagia, dysphagia, and shortness of breath.
CT abdomen/pelvis obtained on presentation reveals CT imaging shows innumerable ill-defined hypoattenuating, hypoenhancing liver lesions, consistent with hepatic metastasis with mild hepatomegaly, GEJ wall thickening suspicious for esophageal
carcinoma with adjacent lymphadenopathy, and a 5.8 cm expansile metastatic lesion of the right anterior ninth rib.�
Past-Medical/Surgical History
Psoriatic arthritis
Major Depressive Disorder
Gallstone Pancreatitis s/p ERCP and Lap Awa
Asthma
Patient Medication
�Medication �Instructions �Recorded �Confirmed �Last Taken �Type
No Meds [No Current Medications] 01/28/25 01/28/25 Unknown History
Active Medications
Generic Name Dose Route Start Last Admin
Trade Name Freq PRN Reason Stop Dose Admin
Acetaminophen 650 mg 01/28/25 06:25
Acetaminophen 325 Mg Tablet PO 02/25/25 06:24
Q4HPRN PRN
Mild Pain / Temp > 101
Enoxaparin Sodium 40 mg 01/28/25 18:00
Enoxaparin Sodium 40 Mg/0.4 Ml Syringe SC 02/25/25 17:59
QPM CHERI
Fentanyl Citrate 25 mcg 01/28/25 11:55
Fentanyl (50 Mcg/Ml) 100 Mcg/2 Ml Ampul IV 01/29/25 11:55
[id number] PRN
shivers
Fentanyl Citrate 50 mcg 01/28/25 11:55
Fentanyl (50 Mcg/Ml) 100 Mcg/2 Ml Ampul IV 01/29/25 11:55
PACU-Q5MPRN PRN
severe pain
Fentanyl Citrate 25 mcg 01/28/25 11:55
Fentanyl (50 Mcg/Ml) 100 Mcg/2 Ml Ampul IV 01/29/25 11:55
PACU-Q5MPRN PRN
moderate pain
Hydromorphone HCl 1 mg 01/28/25 11:48
Hydromorphone 1 Mg/Ml Carpuject IV 02/11/25 11:47
Q3HPRN PRN
moderate pain
Parenteral Electrolytes 1,000 mls @ 100 mls/hr 01/28/25 12:00
Normosol-R/Plasmalyte-A IV 01/29/25 11:55
PER PROTOCOL CHERI
Lactated Ringer's 1,000 mls @ 125 mls/hr 01/29/25 01:00
Lr IV
.Q8H CHERI
Ondansetron HCl 4 mg 01/28/25 06:25 01/28/25 06:44
Ondansetron 4 Mg/2 Ml Vial IV 02/25/25 06:24 4 mg
Q6HPRN PRN Administration
nausea and vomiting
Ondansetron HCl 4 mg 01/28/25 11:55
Ondansetron 4 Mg/2 Ml Vial IV 01/29/25 11:55
PACU-ONCEPRN PRN
nausea/vomiting
Oxycodone HCl 5 mg 01/28/25 06:25
Oxycodone 5 Mg Regular Release Tablet PO 02/11/25 06:24
Q4HPRN PRN
Moderate Pain
Pantoprazole Sodium 40 mg 01/28/25 08:00 01/28/25 09:10
Pantoprazole Sodium 40 Mg/10 Ml Vial IV 02/25/25 07:59 40 mg
DAILY CHERI Administration
Prochlorperazine Edisylate 5 mg 01/28/25 11:55
Prochlorperazine 10 Mg/2 Ml Vial IV 01/29/25 11:55
PACU-ONCEPRN PRN
nausea/vomiting
Sodium Chloride 0 flush 01/28/25 07:00
Sodium Chloride 0.9% (Flush) Syringe IV 02/25/25 06:59
PER PROTOCOL CHERI
Sodium Chloride 10 ml 01/28/25 08:00 01/28/25 09:11
Sodium Chloride 0.9% (Preservative Free) 10 Ml Vial IV 02/25/25 07:59 10 ml
DAILY CHERI Administration
Review of Systems
-
History Source: Patient
Constitutional: Reports Weight Loss, No Appetite and Fatigue; Denies Fever
EENT: Reports No Symptoms
Respiratory: Denies Cough or Trouble Breathing
Cardiac: Reports Diaphoresis; Denies Palpitations
GI: Reports Abdominal Pain (Generalized, most intense in RUQ), Nausea and Anorexia; Denies Vomiting, Diarrhea, Constipated, Bloody Stools or Black Stools
: Reports Flank Pain; Denies Dysuria or Difficulty Voiding
Musculoskeletal: Reports Joint Pain and NSAID Use
Skin: Reports No Symptoms
Neuro: Denies Weakness or Ataxia
Hematologic/Lymphatic: Reports No Symptoms
Psych: Reports Depressed
Physical Exam
-
General: No Apparent Distress and Conversant
Cardiology: Normal Sinus Rhythm, S1 and S2
Pulmonary: Clear
GI: Soft, Normal Bowel Sounds and Other (Tender- RUQ)
Musculoskeletal: No Clubbing, No Cyanosis and No Edema
Extremities: Pulses Present
Skin: Warm
Psych: Calm
Labs
Lab Results
WBC 20.0 10^3/uL (4.8-10.8) H 01/28/25 00:50
RBC 3.84 10^6/uL (4.70-6.10) L 01/28/25 00:50
Hgb 10.3 g/dL (13.0-18.0) L 01/28/25 00:50
Hct 32.8 % (39.0-52.0) L 01/28/25 00:50
MCV 85.4 fL (80.0-94.0) 01/28/25 00:50
MCH 26.8 pg (27.0-31.0) L 01/28/25 00:50
MCHC 31.4 g/dL (33.0-37.0) L 01/28/25 00:50
RDW 15.7 % (11.5-14.5) H 01/28/25 00:50
Plt Count 1006 10^3/uL (130-400) H 01/28/25 00:50
MPV 8.1 fL (7.4-10.4) 01/28/25 00:50
Abs Immat Gran (auto) 0.1 10^3/uL (0-0.05) H 01/28/25 00:50
Absolute Neuts (auto) 15.3 10^3/uL (1.4-6.5) H 01/28/25 00:50
Absolute Lymphs (auto) 2.7 10^3/uL (1.2-3.4) 01/28/25 00:50
Absolute Monos (auto) 1.8 10^3/uL (0.1-0.6) H 01/28/25 00:50
Absolute Eos (auto) 0.1 10^3/uL (0-0.7) 01/28/25 00:50
Absolute Basos (auto) 0.1 10^3/uL (0-0.2) 01/28/25 00:50
Immature Gran % 0.5 % (0-0.5) 01/28/25 00:50
Neutrophils % 76.1 % (42.2-75.2) H 01/28/25 00:50
Lymphocytes % 13.7 % (20.5-51.1) L 01/28/25 00:50
Monocytes % 8.9 % (1.7-9.3) 01/28/25 00:50
Eosinophils % 0.4 % (0-6) 01/28/25 00:50
Basophils % 0.4 % (0-2) 01/28/25 00:50
Creatinine 0.5 mg/dL (0.7-1.3) L 01/28/25 00:50
Vital Signs
Vital Signs
Temp Pulse Resp BP Pulse Ox
98.2 F 122 16 153/108 98
11/14/25 11:55 01/28/25 11:55 01/28/25 11:55 01/28/25 11:55 01/28/25 11:55

Documented by User: Larry Cantu MD 01/28/25 14:21
Plan
Plan
WBC 20, Hgb 10.3, Iron 32, TIBC 249, %Sat 12, Platelet 1006, AST 88, ALT 56, ALP 870, CEA 534
-Planned EGD with EUS with Dr. Trevizo today-- await results
-Tumor markers- AFP, CA 19-19 pending
Oncology Addendum:
Patient seen and evaluated and agree w/ R1 note and plan as outlined
-CT imaging w/ thickening at esophageal junction, hepatic lesions, enlarged GE junction nodes, and expansile mass right 9th rib
-CT imaging findings concerning for possible advanced esophageal malignancy
-EGD/EUS pending for pathology
-staging PET/CT imaging as outpt
-will await pathology and staging studies prior to additional discussion of potential treatment options
Will continue to follow with you.
--- NOTE | 2025-01-28 12:37 | CM ---
CM following re: discharge planning.
Reviewed pt's chart, met with pt.
Patient is a 49 y.o transgender female, admitted with primary dx of Abdominal pain. PMH: psoriatic arthritis.
Pt reports she lives with father 2SH, 2 steps to enter. Pt reports she lost her insurance due to not having job. HRSI specialist following. Insurance resources given to the pt.
PCP: [facility]
Pharmacy: [facility]
D/c plan: uncertain at this time and will depend on pt's progress.
CM will follow with discharge plan updates as hospitalization progresses
[2025-01-28 14:32] LABS: Ferritin 735.0 ng/ml (17.9-464.0)
[2025-01-28] MEDS: LR 1000 IV (14:33)
--- NOTE | 2025-01-28 15:12 | PTCARENOTE ---
Patient OOb in room with a steady gait, nausea and pain are improved at present. Reort given to GI lab. Patient sent ti GI lab with transport.
[2025-01-28 16:20] LABS: AFP Male/Tumor Marker 7100 ng/ml
--- NOTE | 2025-01-28 16:57 | PTCARENOTE ---
Received patient from PACU. Patient AAOx3, ambulated from stretcher to bathroom with a steady gait. PCT in to bladder scan patient. Patient wants to try to void on her own first.
[2025-01-28] MEDS: LOVENOX 40 MG SC (17:15)
[2025-01-28 17:54] LABS: Urine Character Clear (Clear)
[2025-01-28] MEDS: REGLAN 10 MG IV (17:57)
[2025-01-28 18:08] LABS: Urine Red Blood Cell 0-2 /HPF (0-2); Urine White Cell 0-2 /HPF (0-5)
[2025-01-29] MEDS: LR 1000 IV ×3 (01:04→17:30)
[2025-01-29] MEDS: DILAUDID 1 MG IV ×7 (02:40→23:13)
[2025-01-29 03:35] VITALS: BP 138/96
[2025-01-29 06:00] VITALS: BMI 25.1
[2025-01-29] MEDS: ZOFRAN 4 MG IV ×3 (06:20→23:12)
--- NOTE | 2025-01-29 07:03 | W.PN.GI.CBS2 ---
Addendum entered and electronically signed by Fredis Coronado DO 01/29/25 08:14:
I saw and examined the patient.
The BALING PRESS OPERATOR's note was reviewed and I agree with the note.
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 S/p biopsies and biliary stent removed. Reviewed EGD findings at bedside this AM and based on EGD and prior imaging,
highly concerning for malignancy. Ultimately, defer to Oncology for further evaluation while awaiting for path results. For now, recommend ongoing supportive care with PPI BiD and anti-emetics for nausea. Tolerating CLD and may ADAT as tolerated.
Agree with rest of care as outlined below.
Discussed with primary internal medicine team this AM and nursing. Path will be f/u with Dr. Trevizo. GI will sign-off, please call back with any questions or concerns.
Original Note:
Today's Communication / Plan
-
EGD as noted with concern for GE junction mass and imaging with concern for mets-- EGD report given to patient and reviewed
path pending
on clear diet-- took minimal overnight with just water and required antiemetics cont clear diet
reviewed with nursing if tolerating clear ok to advance to fulls-- if tolerating fulls then trial pureed-- discussed will also need supplement for nutrition
cont PPI
agree with Lovenox for DVT prophylaxis
trend labs-- AM labs pending
await oncology eval
work up per medical team for persistent tachycardia
support given with noted finding all questions answered
Assessment / Plan
-
Pt is 49yo with hx transgender without prior surgery, depression, anxiety, hypertriglyceridemia, asthma, psoriatic arthritis, gallstone pancreatitis with yemi and ERCP with stent placement in 2022 now presents with RUQ pain for last 6-12 months
with dysphagia and has been taking Tylenol and Advil for pain. In further review with patient after ERCP in 2022 was due for follow up for stent removal but did not return. Patient admits to loss of insurance. Pt was doing well til last year
onset of pain with wt loss up to 50 lb. Prior to admission was only taking milk and NSAID. Pain symptoms increased with severe right sided pain and presents to ER. On admission US and CT with concern for GE junction mass, liver mets, and rib met
with small nodes and CBD stent in place. labs with WBC 20,000, hbg 10.3, platelets 1006, Na 134, iron 32, TIBC 249, % sat 12, bili 0.8, AST 88, ALT 56, alk phos 870. Pt otherwise admits to nausea with dry heaves, shortness of breath worse with
steps, but denies dysphagia, GERD, hematemesis, diarrhea, constipation, blood or black in stool. No prior EGD/colon but had EUS with ERCP in 2022 with normal stomach and esophagus at that time. No anticoagulation but admit to NSAID and Tylenol use
prior to admission.
01/28/25 US abdomen - preliminary- innumerable heterogeneous hypoechoic masses in liver concerning for mets, post yemi, no bile duct dilatation, right kidney normal no free fluid
01/28/25 CT a/p - circumferential mass at GE junction and gastric cardia appears to involve diaphragmatic silviano, few small lymph nodes innumerable low attenuation liver mets, large expansile destructive mets right anterior ninth ribs, CBD stent in
place, no biliary ductal dilatation
final read: 1. Innumerable hepatic metastases. Mild hepatic enlargement.2. Bowel wall thickening at the gastroesophageal junction, likely reflective of esophageal carcinoma.3. Enlarged lymph nodes near the gastroesophageal junction, measuring up to
1.2 cm in diameter.4. Expansile metastasis within the right anterior ninth rib, measuring 5.8 cm in greatest dimension.
01/28/25- EGD Santhosh - Partially obstructing, malignant esophageal tumor was found in the lower third of the esophagus and at the gastroesophageal junction. Biopsied. Retained gastric fluid. Fluid aspiration performed. Biliary stent in the
duodenum. Removed. bx pending
-EGD with partially obstructing malignant appearing lower esophagus/GE junction mass
-imaging with GE junction mass with mets on imaging to liver/ribs
-abdominal pain with right sided rib pain
-tachycardia
-wt loss
-anemia
-leukocytosis
-thrombocytosis
-increased LFT's
-hx prior gallstone pancreatitis EUS/ERCP 2022 lost in follow up for stent removal-- s/p stent removal 01/28 with EGD
other med problems:
transgender without prior surgery, depression, anxiety, hypertriglyceridemia, asthma, psoriatic arthritis
PLAN:
EGD as noted with concern for GE junction mass and imaging with concern for mets-- EGD report given to patient and reviewed
path pending
on clear diet-- took minimal overnight with just water and required antiemetics cont clear diet
reviewed with nursing if tolerating clear ok to advance to fulls-- if tolerating fulls then trial pureed-- discussed will also need supplement for nutrition
cont PPI
agree with Lovenox for DVT prophylaxis
trend labs-- AM labs pending
await oncology eval
work up per medical team for persistent tachycardia
support given with noted finding all questions answered
Subjective
Subjective
Date of Service: January 29, 2025
01/26 yellow stool, on clear diet able to take some water but did have some Zofran and reglan for nausea s/p EGD results as noted
Objective
Data Reviewed
Laboratory Data:
Laboratory Results
PT 15.5 Sec (11.4-14.6) H 01/28/25 09:14
INR 1.20 01/28/25 09:14
Total Bilirubin 0.8 mg/dl (0.2-1.3) 01/28/25 00:50
AST 88 U/L (17-59) H 01/28/25 00:50
ALT 56 U/L (0-50) H 01/28/25 00:50
Alkaline Phosphatase 870 U/L (38-126) H 01/28/25 00:50
Lipase 23 U/L (23-300) 01/28/25 00:50
Vital Signs and I&O:
Vital Signs
Temp Pulse Resp BP Pulse Ox
99.2 F 108 18 138/96 96
01/29/25 03:35 01/29/25 03:35 01/29/25 03:35 01/29/25 03:35 01/29/25 03:35
I&O
01/28/25 01/29/25 01/30/25
06:59 06:59 06:59
Intake Total 360 / 360
Balance 360 / 360
Physical Exam
Physical Exam
HEENT: Anicteric and Moist mucous membranes
Cardiology: Other (tachy)
Pulmonary: Clear
GI: Soft, Distended (minimal ) and Tender (mild)
Extremities: No Edema
Neuro: Non Focal
[2025-01-29 07:20] VITALS: BP 131/94
[2025-01-29 08:14] LABS: Hematocrit 30.2 % (39.0-52.0); Hemoglobin 9.4 g/dL (13.0-18.0); Mean Corp Hgb Conc. 31.1 g/dL (33.0-37.0); Mean Corpuscular Volume 89.3 fL (80.0-94.0); Platelet Count 1009 10^3/uL (130-400); Red Cell Dist. Width 15.9 % (11.5-14.5)
[2025-01-29] MEDS: PROTONIX IV 40 MG IV (08:20)
[2025-01-29] MEDS: NSS (PRESERVATIVE FREE) 10 ML IV (08:20)
[2025-01-29 08:25] LABS: AST (SGOT) 130 U/L (17-59); Albumin 3.4 g/dl (3.5-5.0); Alkaline Phosphatase 855 U/L (38-126); Blood Urea Nitrogen 13 mg/dl (9-20); Calcium 9.4 mg/dl (8.4-10.2); Carbon Dioxide 23 mmol/L (22-30); Chloride 98 mmol/L (98-107); Estimated Creatinine Clearance > 125 ml/min; Glucose 95 mg/dl (70-99); Magnesium 1.9 mg/dl (1.6-2.3); Potassium 5.1 mmol/L (3.5-5.1); Sodium 132 mmol/L (135-145); Total Protein 7.2 g/dl (6.3-8.2); eGFR > 60.00
[2025-01-29 08:38] LABS: ALT (SGPT) 66 U/L (0-50)
--- NOTE | 2025-01-29 09:29 | W.PN.HOSP.TC ---
Today's Communication/Plan
-
Follow-up pathology
Follow-up CA 19-9
Plan for OP staging studies
Consideration for chemo/immunotherapy
Continue CLD and maintenance IVF for now
Assessment / Plan
Assessment / Plan
49-year-old transgender F with past medical history of gallstone pancreatitis (cholecystectomy 2022), significant psoriatic arthritis on Humira 2 years ago (not taking because she lost her insurance) presented with abdominal pain. CT findings
consistent with metastatic gastrointestinal malignancy with circumferential encasing the GE junction and likely metastases to the liver and ribs. 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
#Unspecified GE junction neoplasm with metastases
- Presented with abdomen pain, weight loss; CT A/P with circumferential GE mass and signs of metastases to ribs and liver
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
- Tumor markers were sent out after arrival, CEA and AFP levels very high; oncology planning for OP PET/CT
- Continue with twice daily PPI prophylactically for now
- Follow-up pathology and plan for OP PET/CT
- Follow-up CA 19-9 levels
#Sinus Tachycardia
- Likely physiologically driven by pain and anxiety from hospitalization
- Initial concern for PE though CTA PE protocol negative for emboli
- Improving with IV fluids and analgesia
- Continue on telemetry
#Psoriatic arthritis
- Has known diagnosis for which she previously took Humira
- No longer on Humira since losing health insurance 2 years ago
- No signs of acute flare at this time
#H/O cholecystitis
#H/O CBD stent s/p removal on 01/28/2025
Diet: CLD for now
DVT: SQ Lovenox
Code: Full
Dispo: Home when medically stable
Discussed with gastroenterology
Anticipated Discharge: > 48 hours
Subjective/Interval History
-
Date of Service: January 29, 2025
Seen and examined at the bedside. No acute events reported overnight. AFVSS this morning
White cell continuing to uptrend. Platelets up to 1000. Hemoglobin stable as are remainder of labs
Denies any new complaints today. Pain improved on higher dose Dilaudid
Objective Data
-
Labs:
Laboratory Results
01/29/25
06:16
WBC 26.6 H
Hgb 9.4 L
Hct 30.2 L
Plt Count 1009 H
Sodium 132 L
Potassium 5.1
Chloride 98
Carbon Dioxide 23
BUN 13
Creatinine 0.5 L
Glucose 95
Calcium 9.4
Total Bilirubin 0.9
AST 130 H
ALT 66 H
Alkaline Phosphatase 855 H
Vital Signs:
Vital Signs
Temp Pulse Resp BP Pulse Ox
99.4 F 106 20 131/94 92
01/29/25 07:20 01/29/25 07:20 01/29/25 07:20 01/29/25 07:20 01/29/25 07:20
I&O
01/28/25 01/29/25 01/30/25
06:59 06:59 06:59
Intake Total 360 / 360
Balance 360 / 360
Review of Systems
-
History Source: Patient
All other systems: Reviewed and negative
Physical Exam
-
General: Well Developed and No Apparent Distress; Negative Cachectic
HEENT: Normocephalic, Atraumatic, Moist Mucous Membranes and Anicteric
Respiratory: Clear to Auscultation and Non Labored Respirations; Negative Accessory Resp Muscle Use
Cardiac: Regular Rhythm and S1/S2; Negative Murmur, Rub or Gallop
GI: Soft, Nontender, Nondistended and Normal Bowel Sounds
Musculoskeletal: No Clubbing, No Cyanosis and No Edema
Skin: Warm and Dry; Negative Rash or Jaundice
Neuro: AO x 3, Nonfocal/Grossly Intact and Central Nerve's Intact
Psych: Calm
Data Reviewed
-
Labs: Labs Reviewed by me, Discussed with Physician and Discussed with Patient
[2025-01-29 15:36] VITALS: BP 134/96
[2025-01-29] MEDS: LOVENOX 40 MG SC (17:30)
[2025-01-29 19:44] VITALS: BP 151/95
[2025-01-29 23:46] VITALS: BP 130/84
[2025-01-30] MEDS: LR 1000 IV (01:52)
[2025-01-30] MEDS: DILAUDID 1 MG IV ×6 (02:40→21:22)
[2025-01-30 03:22] VITALS: BP 140/94
[2025-01-30 06:00] VITALS: BMI 26.0
[2025-01-30] MEDS: ZOFRAN 4 MG IV (06:18)
[2025-01-30 06:55] LABS: Hematocrit 26.3 % (39.0-52.0); Hemoglobin 8.2 g/dL (13.0-18.0); Mean Corp Hgb Conc. 31.2 g/dL (33.0-37.0); Mean Corpuscular Volume 88.0 fL (80.0-94.0); Nucleated Red Blood Cells % 0 % (-); Platelet Count 806 10^3/uL (130-400); Red Cell Dist. Width 15.8 % (11.5-14.5)
[2025-01-30 07:07] LABS: ALT (SGPT) 60 U/L (0-50); AST (SGOT) 114 U/L (17-59); Albumin 2.7 g/dl (3.5-5.0); Alkaline Phosphatase 747 U/L (38-126); Blood Urea Nitrogen 9 mg/dl (9-20); Calcium 8.7 mg/dl (8.4-10.2); Carbon Dioxide 26 mmol/L (22-30); Chloride 97 mmol/L (98-107); Estimated Creatinine Clearance > 125 ml/min; Glucose 115 mg/dl (70-99); Magnesium 1.6 mg/dl (1.6-2.3); Potassium 3.9 mmol/L (3.5-5.1); Sodium 127 mmol/L (135-145); Total Protein 6.3 g/dl (6.3-8.2); eGFR > 60.00
[2025-01-30 07:25] VITALS: BP 141/95
[2025-01-30] MEDS: NSS (PRESERVATIVE FREE) 10 ML IV (08:01)
[2025-01-30] MEDS: PROTONIX IV 40 MG IV (08:01)
--- NOTE | 2025-01-30 08:41 | W.PN.HOSP.TC ---
Today's Communication/Plan
-
Follow-up pathology
Check urine osmolality and urine sodium
60 ounce fluid restriction/maintenance IVF
Increase Dilaudid to 1.5 as needed
Assessment / Plan
Assessment / Plan
49-year-old transgender F with past medical history of gallstone pancreatitis (cholecystectomy 2022), significant psoriatic arthritis on Humira 2 years ago (not taking because she lost her insurance) presented with abdominal pain. CT findings
consistent with metastatic gastrointestinal malignancy with circumferential encasing the GE junction and likely metastases to the liver and ribs. 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 Pathology results pending.
Downtrending serum sodium on clear liquid diet
#Unspecified GE junction neoplasm with metastases
- Presented with abdomen pain, weight loss; CT A/P with circumferential GE mass and signs of metastases to ribs and liver
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
- Tumor markers were sent out after arrival, CEA and AFP levels very high; oncology planning for OP PET/CT
- Continue with daily PPI prophylactically for now
- Follow-up pathology and plan for OP PET/CT
- Follow-up CA 19-9 levels
#Euvolemic hypotonic hyponatremia
- Suspect polydipsia on CLD, though cannot rule out SIADH with underlying malignancy
- Does not seem overly hypovolemic despite limited intake on CLD
- Sodium 134 on arrival, down to 127 today; serum osm 273
- Ordered urine osmolality and urine sodium
- Start 60 ounce dietary fluid restriction
- Trend BMP
#Anemia of chronic disease
#Thrombocytosis
- Suspect both of these are reactive to underlying metastatic disease
- Iron studies with elevated ferritin and low TIBC; Hgb down trended with IVF
- Also has a significant reactive thrombocytosis with platelets between 800-1000
- Consider hydroxyurea for thrombocytosis, defer to oncology
- Continue to trend CBC with differential
#Sinus Tachycardia
- Likely physiologically driven by pain and anxiety from hospitalization
- Initial concern for PE though CTA PE protocol negative for emboli
- Improving with IV fluids and analgesia
- Continue on telemetry
#Urinary retention (?)
- Mentions that she has had episodes where it takes her a while to void
- Renal function stable, has been able to void after waiting periods of time
- Will start bladder scan protocol with straight cath as needed
#Psoriatic arthritis
- Has known diagnosis for which she previously took Humira
- No longer on Humira since losing health insurance 2 years ago
- No signs of acute flare at this time
#H/O cholecystitis C/B gallstone pancreatitis s/p cholecystectomy
#H/O CBD stent s/p removal on 01/28/2025
Diet: CLD, 60 oz FR
DVT: SQ Lovenox
Code: Full
Dispo: Home when medically stable
Discussed with gastroenterology
Anticipated Discharge: > 48 hours
Subjective/Interval History
-
Date of Service: January 30, 2025
Seen and examined at the bedside. No acute events reported overnight. AFVSS today
WBC remains elevated at 20.7, hemoglobin downtrending with fluids, platelet count remains elevated as well. Serum sodium today 127. LFTs stable
Continues to have some pain but responds partially to Dilaudid. Tolerating clear liquid diet. Denies any new complaints this morning
Objective Data
-
Labs:
Laboratory Results
01/30/25
06:19
WBC 20.7 H
Hgb 8.2 L
Hct 26.3 L
Plt Count 806 H D
Sodium 127 L
Potassium 3.9
Chloride 97 L
Carbon Dioxide 26
BUN 9
Creatinine 0.4 L
Glucose 115 H
Calcium 8.7
Total Bilirubin 0.9
AST 114 H
ALT 60 H
Alkaline Phosphatase 747 H
Vital Signs:
Vital Signs
Temp Pulse Resp BP Pulse Ox
98.5 F 108 20 141/95 92
01/30/25 07:25 01/30/25 07:25 01/30/25 07:25 01/30/25 07:25 01/30/25 07:25
I&O
01/29/25 01/30/25 01/31/25
06:59 06:59 06:59
Intake Total 360 / 360 2099
Balance 360 / 360 2099
Review of Systems
-
History Source: Patient
All other systems: Reviewed and negative
Physical Exam
-
General: Well Developed, No Apparent Distress and Appears Chronically Ill
HEENT: Normocephalic, Atraumatic, Moist Mucous Membranes and Anicteric
Respiratory: Clear to Auscultation and Non Labored Respirations; Negative Accessory Resp Muscle Use
Cardiac: Regular Rhythm, S1/S2 and Tachycardic (rate 100); Negative Murmur, Rub or Gallop
GI: Soft, Nontender, Nondistended and Normal Bowel Sounds
Musculoskeletal: No Clubbing, No Cyanosis and No Edema
Skin: Warm and Dry; Negative Rash or Jaundice
Neuro: AO x 3, Nonfocal/Grossly Intact and Central Nerve's Intact
Psych: Calm
Data Reviewed
-
Labs: Labs Reviewed by me and Discussed with Patient
[2025-01-30] MEDS: NSS 1000 IV ×2 (08:44→17:43)
[2025-01-30 11:15] VITALS: BP 140/90
[2025-01-30] MEDS: DILAUDID 0.5 MG IV ×3 (12:13→21:21)
[2025-01-30 13:32] LABS: CA 19-9 433 U/mL (<=35)
[2025-01-30 16:29] VITALS: BP 150/97
[2025-01-30] MEDS: LOVENOX 40 MG SC (17:37)
[2025-01-30 19:00] VITALS: BP 138/93
[2025-01-30 23:00] VITALS: BP 148/93
[2025-01-31] MEDS: DILAUDID 1 MG IV ×8 (00:35→23:41)
[2025-01-31] MEDS: DILAUDID 0.5 MG IV ×8 (00:36→23:41)
[2025-01-31] MEDS: ZOFRAN 4 MG IV ×4 (00:36→20:35)
[2025-01-31 03:00] VITALS: BP 137/89
[2025-01-31] MEDS: NSS 1000 IV ×2 (03:45→13:48)
--- NOTE | 2025-01-31 04:13 | PTCARENOTE ---
At 0352, Patient states she sat on the toilet for about a half hour until she could passed urine. Per order, pt was bladder scanned and straight cath 500ml Yessi urine.
[2025-01-31 04:42] VITALS: BMI 26.1
[2025-01-31 07:00] VITALS: BP 137/87
--- NOTE | 2025-01-31 08:17 | W.PN.HOSP.TC ---
Today's Communication/Plan
-
See plan
Assessment / Plan
Assessment / Plan
Physical Exam
General: Well Developed, No Apparent Distress and Appears Chronically Ill
HEENT: Normocephalic, Atraumatic, Moist Mucous Membranes
Respiratory: Clear to Auscultation and Non Labored Respirations; Negative Accessory Resp Muscle Use
Cardiac: Regular Rhythm, S1/S2
GI: Soft, Nontender, Nondistended and Normal Bowel Sounds
Musculoskeletal: No Cyanosis and No Edema
Skin: Warm and Dry
Neuro: AO x 3, Nonfocal/Grossly Intact and Central Nerve's Intact
Psych: Calm
Assessment/Plan
49-year-old transgender F with past medical history of gallstone pancreatitis (cholecystectomy 2022), significant psoriatic arthritis on Humira 2 years ago (not taking because she lost her insurance) presented with abdominal pain. CT findings
consistent with metastatic gastrointestinal malignancy with circumferential encasing the GE junction and likely metastases to the liver and ribs. 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 Pathology results pending.
Downtrending serum sodium on clear liquid diet
#Unspecified GE junction neoplasm with metastases
- Presented with abdomen pain, weight loss; CT A/P with circumferential GE mass and signs of metastases to ribs and liver
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
- Tumor markers were sent out after arrival, CEA and AFP levels very high; oncology planning for OP PET/CT
- Continue with daily PPI prophylactically for now
- Follow-up pathology and plan for OP PET/CT
- CA 19-9 level high at 433
- IR biopsy of hepatic lesion requested -- the concern is the high AFP with hepatocellular carcinoma in the differential diagnosis
#Euvolemic hypotonic hyponatremia
- Suspect polydipsia on CLD, though cannot rule out SIADH with underlying malignancy
- Does not seem overly hypovolemic despite limited intake on CLD
- Sodium 134 on arrival, down to 127 today; serum osm 273
- Ordered urine osmolality and urine sodium support SIADH
- Continue 60 ounce dietary fluid restriction
- Trend BMP
#Anemia of chronic disease
#Thrombocytosis
- Suspect both of these are reactive to underlying metastatic disease
- Iron studies with elevated ferritin and low TIBC; Hgb down trended with IVF
- Also has a significant reactive thrombocytosis with platelets between 800-1000
- Consider hydroxyurea for thrombocytosis, defer to oncology
- Continue to trend CBC with differential
#Sinus Tachycardia
- Likely physiologically driven by pain and anxiety from hospitalization
- Initial concern for PE though CTA PE protocol negative for emboli
- Improving with IV fluids and analgesia
- Continue on telemetry
#Urinary retention (?)
- Mentions that she has had episodes where it takes her a while to void
- Renal function stable, has been able to void after waiting periods of time
- Will start bladder scan protocol with straight cath as needed
#Psoriatic arthritis
- Has known diagnosis for which she previously took Humira
- No longer on Humira since losing health insurance 2 years ago
- No signs of acute flare at this time
#H/O cholecystitis C/B gallstone pancreatitis s/p cholecystectomy
#H/O CBD stent s/p removal on 01/28/2025
Diet: CLD, 60 oz FR
DVT: Holding SQ Lovenox for liver biopsy tomorrow
Code: Full
Dispo: Home when medically stable
Anticipated Discharge: > 48 hours
Subjective/Interval History
-
Date of Service: January 31, 2025
Patient was seen and examined. She reported no new symptoms or complaints.
Objective Data
-
Labs:
Laboratory Results
01/31/25
08:13
WBC Pending
Hgb Pending
Hct Pending
Plt Count Pending
Sodium Pending
Potassium Pending
Chloride Pending
Carbon Dioxide Pending
BUN Pending
Creatinine Pending
Glucose Pending
Calcium Pending
Total Bilirubin Pending
AST Pending
ALT Pending
Alkaline Phosphatase Pending
Vital Signs:
Vital Signs
Temp Pulse Resp BP Pulse Ox
98.5 F 101 18 137/89 96
01/31/25 03:00 01/31/25 03:00 01/31/25 03:00 01/31/25 03:00 01/31/25 03:00
I&O
01/30/25 01/31/25 02/01/25
06:59 06:59 06:59
Intake Total 2099 / 2099 2800 / 2800
Output Total 500 / 500
Balance 2099 / 2099 2300 / 2300
[2025-01-31] MEDS: NSS (PRESERVATIVE FREE) 10 ML IV (08:36)
[2025-01-31] MEDS: PROTONIX IV 40 MG IV (08:36)
[2025-01-31 08:45] LABS: Hematocrit 25.6 % (39.0-52.0); Hemoglobin 7.8 g/dL (13.0-18.0); Mean Corp Hgb Conc. 30.5 g/dL (33.0-37.0); Mean Corpuscular Volume 88.0 fL (80.0-94.0); Nucleated Red Blood Cells % 0 % (-); Red Cell Dist. Width 15.9 % (11.5-14.5)
[2025-01-31 10:13] LABS: ALT (SGPT) 60 U/L (0-50); AST (SGOT) 91 U/L (17-59); Albumin 2.5 g/dl (3.5-5.0); Alkaline Phosphatase 535 U/L (38-126); Blood Urea Nitrogen 6 mg/dl (9-20); Calcium 8.2 mg/dl (8.4-10.2); Carbon Dioxide 25 mmol/L (22-30); Chloride 101 mmol/L (98-107); Estimated Creatinine Clearance > 125 ml/min; Glucose 115 mg/dl (70-99); Magnesium 1.7 mg/dl (1.6-2.3); Potassium 3.7 mmol/L (3.5-5.1); Sodium 129 mmol/L (135-145); Total Protein 5.9 g/dl (6.3-8.2); eGFR > 60.00
--- NOTE | 2025-01-31 10:35 | VATNOTE ---
Noted slight puffiness in right upper arm proximal to IV insertion site. Pt. stated it is unchanged. Denies pain. No redness or warmth. IV flushed easily with 3ml NSS twice with no change. Pt. declines offer of a restart at this time. Will
continue to assess.
[2025-01-31 11:00] VITALS: BP 133/82
[2025-01-31 11:31] LABS: Platelet Count 674 10^3/uL (130-400)
[2025-01-31] MEDS: BENADRYL 12.5 MG IV (13:48)
--- NOTE | 2025-01-31 14:22 | CM ---
CM following re: discharge planning.
Reviewed pt's chart, met with pt.
Per chart review, continue supportive care.
HRSI following.
Pt lives with father 2SH, 2 steps to enter.
D/c plan: home with family.
CM will follow with discharge plan updates as hospitalization progresses
[2025-01-31 15:00] VITALS: BP 134/84
--- NOTE | 2025-01-31 17:40 | PTCARENOTE ---
patient reported that she sat on the toilet trying to urinate for an hour. previous bladder scan 365 ml. patient requested to be straight cathed. she had 550 ml urine output from straight cath
--- NOTE | 2025-01-31 19:18 | W.PN.ONC2 ---
Today's Communication / Plan
-
Suggest image-guided liver biopsy, d/w hospitalist attending and IR.
Impression
Impression
Abnormal CT findings: innumerable liver lesion with mild hepatomegaly, GEJ wall thickening with adjacent lymphadenopathy, expansile lesion in the right anterior 9th rib
Chronic leukocytosis
Anemia of inflammation
Thrombocytosis
Elevated LFTs
Marked elevations in AFP, CA 19-9, CEA
Anemia
Cancer-related pain
Plan
Plan
Suggest biopsy of liver lesion given pt's very high AFP which is unexpected for an esophageal CA, more consistent with HCC, germ cell tumor, benign liver conditions.
Discussed with pt, she is amenable.
Iron studies and thrombocythemia consistent with anemia of chronic disease +/- iron def.
Pain reasonably controlled currently.
Await path from esophageal mass biospy.
Subjective/Objective
Chief Complaint
Heme/Onc follow up of esophageal mass with liver mets and 9th rib met
Subjective
c/o pain in lower posterolateral ribs, R scapula and pain down R side of spine. States that she gets queasy but the pain and nausea meds help.
Vital Signs:
Vital Signs
Temp Pulse Resp BP Pulse Ox
99.9 F 97 20 134/84 95
01/31/25 15:00 01/31/25 15:00 01/31/25 15:00 01/31/25 15:00 01/31/25 15:00
Lab Results:
Laboratory Data
WBC 20.8 10^3/uL (4.8-10.8) H 01/31/25 08:13
Hgb 7.8 g/dL (13.0-18.0) L 01/31/25 08:13
Plt Count 674 10^3/uL (130-400) H 01/31/25 08:13
PT 15.5 Sec (11.4-14.6) H 01/28/25 09:14
INR 1.20 01/28/25 09:14
eGFR > 60.00 01/31/25 08:13
Physical Exam
Appears awake, alert, non-toxic
HEENT: Moist Mucous Membranes; No Jaundice
Cardiology: Normal Sinus Rhythm, S1 and S2
Pulmonary: Clear; No Wheezes
GI: Soft and Normal Bowel Sounds
Extremities: No C/C/E
Neuro: Non Focal
[2025-01-31 19:19] VITALS: BP 121/86
[2025-01-31 23:26] VITALS: BP 135/84
[2025-02-01] VITALS (9 sets, daily range): BP systolic 89–138; BP diastolic 63–95; BMI 26.5
[2025-02-01] MEDS: ZOFRAN 4 MG IV ×3 (02:52→19:34)
[2025-02-01] MEDS: DILAUDID 0.5 MG IV ×7 (02:52→22:58)
[2025-02-01] MEDS: DILAUDID 1 MG IV ×7 (02:52→22:58)
[2025-02-01 09:00] LABS: Hematocrit 26.2 % (39.0-52.0); Hemoglobin 8.4 g/dL (13.0-18.0); Mean Corp Hgb Conc. 32.1 g/dL (33.0-37.0); Mean Corpuscular Volume 85.1 fL (80.0-94.0); Nucleated Red Blood Cells % 0 % (-); Platelet Count 822 10^3/uL (130-400); Red Cell Dist. Width 15.6 % (11.5-14.5)
--- NOTE | 2025-02-01 09:04 | PN.CDI ---
CDI
- -
CDI:
Physician Documentation Request
Admit Date: 01/28/25 05:17
Dear Doctor James,
Clinical Indicators:
The diagnosis of severe protein calorie malnutrition was documented on 01/28, but is not consistently noted in subsequent documentation.
01/31 note/assessment: -'Weight loss ~50lb x 6 months
-'pt meets criteria for severe protein calorie malnutrition of chronic illness with
27% weight loss x 6-12 months, prolonged inadequate po intake <75% estimated
needs for > 1 month.'
Treatment: Ensure BID
Based on the above information and your assessment, which of the following most accurately represents the patient's nutritional status?
Severe Protein Calorie Malnutrition
Other (please specify)
[place] Criteria ([facility] 2017)
2 or more criteria must be present for either
non severe or severe malnutrition
Note that the criteria differs related to the
presence of an acute or chronic illness
Chronic Illness
Energy Intake Non Severe: <75% for >1 month
Severe: <75% for >1 month
Weight Loss Non Severe: 5% over 1 month
7.5% over 3 months
10% over 6 months
20% over 1 year
Severe: >5% over 1 month
>7.5% over 3 months
>10% over 6 months
>20% over 1 year
Body Fat Non Severe: Mild Loss
Severe: Severe Loss
Muscle Mass Non Severe: Mild Loss
Severe: Severe Loss
Fluid Accumulation Non Severe: Mild Accumulation
Severe: Moderate to severe
accumulation
Reduced Embosser Operator Strength Non Severe: N/A
Severe: Measurably reduced
Additional criteria that can be used to Determine if Mild or Moderate Malnutrition ([employer]ck Manual 2018)
Mild Moderate Severe
Albumin gm/dl <3.0 gm/dl <2.5 gm/dl <2.0 gm/dl
Pre Albumin mg/dl <15 gm/dl <10 mg/dl <5.0 mg/dl
BMI <18.5 <17 <16
Use of terms such as suspected, likely, concern for, or probable (associated with a specific diagnosis that is being evaluated, monitored, or treated as if it exists) are acceptable and can be coded in the inpatient setting, when documented at the
time of discharge.
Thank you,
MOO Wilson RN
CDI Specialist
available via tiger text
Please use your independent medical judgment in providing your response.
[2025-02-01 09:16] LABS: ALT (SGPT) 61 U/L (0-50); AST (SGOT) 79 U/L (17-59); Albumin 2.9 g/dl (3.5-5.0); Alkaline Phosphatase 613 U/L (38-126); Blood Urea Nitrogen 5 mg/dl (9-20); Calcium 8.7 mg/dl (8.4-10.2); Carbon Dioxide 26 mmol/L (22-30); Chloride 100 mmol/L (98-107); Estimated Creatinine Clearance > 125 ml/min; Glucose 102 mg/dl (70-99); Potassium 3.8 mmol/L (3.5-5.1); Sodium 130 mmol/L (135-145); Total Protein 6.1 g/dl (6.3-8.2); eGFR > 60.00
[2025-02-01] MEDS: NSS (PRESERVATIVE FREE) 10 ML IV (09:22)
[2025-02-01] MEDS: PROTONIX IV 40 MG IV (09:22)
--- NOTE | 2025-02-01 09:36 | W.PN.HOSP.TC ---
Today's Communication/Plan
-
Liver biopsy today
See plan
Assessment / Plan
Assessment / Plan
Physical Exam
General: Well Developed, No Apparent Distress and Appears Chronically Ill
HEENT: Normocephalic, Atraumatic, Moist Mucous Membranes
Respiratory: Clear to Auscultation and Non Labored Respirations; Negative Accessory Resp Muscle Use
Cardiac: Regular Rhythm, S1/S2
GI: Soft, Nontender, Nondistended and Normal Bowel Sounds
Musculoskeletal: No Cyanosis and No Edema
Skin: Warm and Dry
Neuro: AO x 3, Nonfocal/Grossly Intact and Central Nerve's Intact
Psych: Calm
Assessment/Plan
49-year-old transgender F with past medical history of gallstone pancreatitis (cholecystectomy 2022), significant psoriatic arthritis on Humira 2 years ago (not taking because she lost her insurance) presented with abdominal pain. CT findings
consistent with metastatic gastrointestinal malignancy with circumferential encasing the GE junction and likely metastases to the liver and ribs. 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 Pathology results pending.
Downtrending serum sodium on clear liquid diet
#Unspecified GE junction neoplasm with metastases
- Presented with abdomen pain, weight loss; CT A/P with circumferential GE mass and signs of metastases to ribs and liver
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
- Tumor markers were sent out after arrival, CEA and AFP levels very high; oncology planning for OP PET/CT
- Continue with daily PPI prophylactically for now
- Follow-up pathology and plan for OP PET/CT
- CA 19-9 level high at 433
- IR biopsy of hepatic lesion requested -- the concern is the high AFP with hepatocellular carcinoma in the differential diagnosis -- liver biopsy for 02/01/25
#Euvolemic hypotonic hyponatremia
- Suspect polydipsia on CLD, though cannot rule out SIADH with underlying malignancy
- Does not seem overly hypovolemic despite limited intake on CLD
- Sodium 134 on arrival, now stable around 130; serum osm 273
- Ordered urine osmolality and urine sodium support SIADH
- Continue 60 ounce dietary fluid restriction
- Trend BMP
#Anemia of chronic disease
#Thrombocytosis
- Suspect both of these are reactive to underlying metastatic disease
- Iron studies with elevated ferritin and low TIBC; Hgb down trended with IVF
- Also has a significant reactive thrombocytosis with platelets between 800-1000
- Consider hydroxyurea for thrombocytosis, defer to oncology
- Continue to trend CBC with differential
#Sinus Tachycardia
- Likely physiologically driven by pain and anxiety from hospitalization
- Initial concern for PE though CTA PE protocol negative for emboli
- Improving with IV fluids and analgesia
- Continue on telemetry
#Urinary retention (?)
- Mentions that she has had episodes where it takes her a while to void
- Renal function stable, has been able to void after waiting periods of time
- Continue bladder scan protocol with straight cath as needed
#Psoriatic arthritis
- Has known diagnosis for which she previously took Humira
- No longer on Humira since losing health insurance 2 years ago
- No signs of acute flare at this time
#H/O cholecystitis C/B gallstone pancreatitis s/p cholecystectomy
#H/O CBD stent s/p removal on 01/28/2025
Diet: CLD, 60 oz FR
DVT: Holding SQ Lovenox for liver biopsy tomorrow -- will resume as per IR
Code: Full
Dispo: Home when medically stable
Anticipated Discharge: 24 - 48 hours
Subjective/Interval History
-
Date of Service: February 01, 2025
Patient was seen and examined. She denied any new symptoms or complaints.
Objective Data
-
Labs:
Laboratory Results
02/01/25
08:12
WBC 22.9 H
Hgb 8.4 L
Hct 26.2 L
Plt Count 822 H D
Sodium 130 L
Potassium 3.8
Chloride 100
Carbon Dioxide 26
BUN 5 L
Creatinine 0.5 L
Glucose 102 H
Calcium 8.7
Total Bilirubin 1.5 H
AST 79 H
ALT 61 H
Alkaline Phosphatase 613 H
Vital Signs:
Vital Signs
Temp Pulse Resp BP Pulse Ox
99.5 F 93 18 138/95 92
02/01/25 07:21 02/01/25 07:21 02/01/25 07:21 02/01/25 07:21 02/01/25 07:21
I&O
01/31/25 02/01/25 02/02/25
06:59 06:59 06:59
Intake Total 2800 / 2800 2080 / 2080
Output Total 500 / 500 1100 / 1100
Balance 2300 / 2300 980 / 980
--- NOTE | 2025-02-01 10:20 | VATNOTE ---
Right Median Cubial Antecub US Guided IV site appears unchanged from 01/31. Pt. continues to deny pain at site. Denies pain with medication administration. Flushed with 10ml NSS.
[2025-02-01] MEDS: LOVENOX SC (17:32)
[2025-02-02] MEDS: ZOFRAN 4 MG IV ×4 (02:35→21:55)
[2025-02-02] MEDS: DILAUDID 1 MG IV ×5 (02:35→15:12)
[2025-02-02] MEDS: DILAUDID 0.5 MG IV ×6 (02:35→22:25)
--- NOTE | 2025-02-02 03:08 | W.PN.UPDATE ---
Update Note
Progress Note Update
Patient unable to void, straight cath performed three times. Patient bladder scanned for > [address] simmons for acute retention.
--- NOTE | 2025-02-02 03:16 | DOWNTIME ---
There was a [employer] Client Outpatient Therapist Downtime on 02/02/2025 from 0100 to 02/02/2025 at 0255. Downtime documentation of patient's care, including medication administrations, has been reconciled in the electronic record per guidelines. Refer to the
patient's paper chart under the miscellaneous tab to see printed paper medication records and downtime forms.
[2025-02-02 05:36] VITALS: BMI 26.9
--- NOTE | 2025-02-02 07:05 | W.PN.HOSP.TC ---
Today's Communication/Plan
-
MRI Spine
Flomax, voiding trial tomorrow
Anticipated discharge tomorrow
Assessment / Plan
Assessment / Plan
Physical Exam
General: Well Developed, No Apparent Distress and Appears Chronically Ill
HEENT: Normocephalic, Atraumatic, Moist Mucous Membranes
Respiratory: Clear to Auscultation and Non Labored Respirations; Negative Accessory Resp Muscle Use
Cardiac: Regular Rhythm, S1/S2
GI: Soft, Nontender, Nondistended and Normal Bowel Sounds
Musculoskeletal: No Cyanosis and No Edema
Skin: Warm and Dry
Neuro: AO x 3, Strength and sensation nonfocal/grossly intact in the bilateral upper and lower extremities. Central Nerves 2 through 12 grossly intact
Psych: Calm
Assessment/Plan
49-year-old transgender F with past medical history of gallstone pancreatitis (cholecystectomy 2022), significant psoriatic arthritis on Humira 2 years ago (not taking because she lost her insurance) presented with abdominal pain. CT findings
consistent with metastatic gastrointestinal malignancy with circumferential encasing the GE junction and likely metastases to the liver and ribs. 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 Pathology results pending.
Downtrending serum sodium on clear liquid diet
#Unspecified GE junction neoplasm with metastases
- Presented with abdomen pain, weight loss; CT A/P with circumferential GE mass and signs of metastases to ribs and liver
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
- Tumor markers were sent out after arrival, CEA and AFP levels very high; oncology planning for OP PET/CT
- Continue with daily PPI prophylactically for now
- Follow-up pathology and plan for OP PET/CT
- CA 19-9 level high at 433
- IR biopsy of hepatic lesion requested -- the concern is the high AFP with hepatocellular carcinoma in the differential diagnosis -- liver biopsy took place on 02/01/25 -- follow-up on pathology results
- Hem/onc outpatient follow-up early next week
#Euvolemic hypotonic hyponatremia
- Suspect polydipsia on CLD, though cannot rule out SIADH with underlying malignancy
- Does not seem overly hypovolemic despite limited intake on CLD
- Sodium 134 on arrival, now stable around 130; serum osm 273
- Ordered urine osmolality and urine sodium support SIADH
- Continue 60 ounce dietary fluid restriction
- Trend BMP
#Anemia of chronic disease
#Thrombocytosis
#Leukocytosis
- Suspect both of these are reactive to underlying metastatic disease
- Iron studies with elevated ferritin and low TIBC; Hgb down trended with IVF
- Also has a significant reactive thrombocytosis with platelets between 800-1000
- Consider hydroxyurea for thrombocytosis, defer to oncology
- Continue to trend CBC with differential
#Sinus Tachycardia
- Likely physiologically driven by pain and anxiety from hospitalization
- Initial concern for PE though CTA PE protocol negative for emboli
- Improving with IV fluids and analgesia
- Continue on telemetry
#Urinary retention (?)
- Mentions that she has had episodes where it takes her a while to void
- Renal function stable, has been able to void after waiting periods of time
- Continue bladder scan protocol with straight cath as needed
- Likely from BPH along with narcotic pain meds and comorbidities; appreciate urology
- Start Flomax
#Psoriatic arthritis
- Has known diagnosis for which she previously took Humira
- No longer on Humira since losing health insurance 2 years ago
- No signs of acute flare at this time
#Worsening Back Pain
-Patient has had chronic back pain for the past 6 to 12 months, attributed to arthritis
-Given suspected cancer, and worsened upper and lower back pain, check MRI T and L spine for any metastases or spinal cord issues
#H/O cholecystitis C/B gallstone pancreatitis s/p cholecystectomy
#H/O CBD stent s/p removal on 01/28/2025
#Severe Protein Calorie Malnutrition
Diet: CLD, 60 oz FR
DVT: Subq Lovenox
Code: Full
Dispo: Home when medically stable
Anticipated Discharge: Within 24 hours
Subjective/Interval History
-
Date of Service: February 02, 2025
Patient was seen and examined. No new symptoms or complaints, still with urinary retention.
Objective Data
-
Labs:
Laboratory Results
02/02/25
06:38
WBC Pending
Hgb Pending
Hct Pending
Plt Count Pending
Sodium Pending
Potassium Pending
Chloride Pending
Carbon Dioxide Pending
BUN Pending
Creatinine Pending
Glucose Pending
Calcium Pending
Total Bilirubin Pending
AST Pending
ALT Pending
Alkaline Phosphatase Pending
Vital Signs:
Vital Signs
Temp Pulse Resp BP Pulse Ox
99.2 F 90 18 131/93 95
02/01/25 23:48 02/01/25 23:48 02/01/25 23:48 02/01/25 23:48 02/01/25 23:48
I&O
02/01/25 02/02/25 02/03/25
06:59 06:59 06:59
Intake Total 2080 / 2080 720 / 720
Output Total 1100 / 1100 950 / 950 400 / 400
Balance 980 / 980 -230 / -230 -400 / -400
[2025-02-02 07:33] VITALS: BP 146/91
[2025-02-02 07:35] LABS: ALT (SGPT) 52 U/L (0-50); AST (SGOT) 63 U/L (17-59); Albumin 2.4 g/dl (3.5-5.0); Alkaline Phosphatase 494 U/L (38-126); Blood Urea Nitrogen 5 mg/dl (9-20); Calcium 8.3 mg/dl (8.4-10.2); Carbon Dioxide 30 mmol/L (22-30); Chloride 98 mmol/L (98-107); Estimated Creatinine Clearance > 125 ml/min; Glucose 105 mg/dl (70-99); Potassium 3.5 mmol/L (3.5-5.1); Sodium 129 mmol/L (135-145); Total Protein 5.7 g/dl (6.3-8.2); eGFR > 60.00
[2025-02-02 07:37] LABS: Hematocrit 24.7 % (39.0-52.0); Hemoglobin 7.7 g/dL (13.0-18.0); Mean Corp Hgb Conc. 31.2 g/dL (33.0-37.0); Mean Corpuscular Volume 88.2 fL (80.0-94.0); Nucleated Red Blood Cells % 0 % (-); Platelet Count 647 10^3/uL (130-400); Red Cell Dist. Width 15.9 % (11.5-14.5)
--- NOTE | 2025-02-02 07:43 | CONS.URO ---
Consultation
-
Date/Time Consultation Performed: 02/02/2025 1155
Requesting Provider: James
Performing Provider: Ash
Reason for Consultation: voiding difficulty
Medical History
History of Present Illness
Medical note, excerpt: '49-year-old transgender F with past medical history of gallstone pancreatitis (cholecystectomy 2022), significant psoriatic arthritis on Humira 2 years ago (not taking because she lost her insurance) presented with abdominal
pain. CT findings consistent with metastatic gastrointestinal malignancy with circumferential encasing the GE junction and likely metastases to the liver and ribs. 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
Pathology results pending.'
Straight cathed for ~ 300 ml then [place] placed for ~ 400 ml during past 12 hours
Past Medical History
Past Medical History: Other (Psoriatic Arthritis)
Past Surgical History: Cholecystectomy and Other (ERCP with Sphincterotomy and Plastic CBD Stent (11/2022))
Allergies/Home Medications
Allergies
Allergy/AdvReac Type Severity Reaction Status Date / Time
No Known Allergies Allergy Verified 01/28/25 00:12
Home Medications
�Medication �Instructions �Recorded �Confirmed �Type
No Meds [No Current Medications] 01/28/25 01/28/25 History
Physical Exam
Vital Signs
Vital Signs
Temp Pulse Resp BP Pulse Ox
99.4 F 95 18 146/91 93
02/02/25 07:33 02/02/25 07:33 02/02/25 07:33 02/02/25 07:33 02/02/25 07:33
Lab / Testing Results
Laboratory Results
02/02/25 06:38
02/02/25 06:38
Physical Exam
adult
General: No Apparent Distress
Genito-urinary: [place] Catheter
Psych: Calm
Assessment / Plan
-
Urinary Retention due to baseline prostate enlargement exacerbated by comorbidities, narcotics
Rec: [place] for today; start Tamsulosin; self-cath instruction tomorrow
Data Reviewed
-
CT Scan: Image personally visualized and interpreted (findings c/w metastatic disease to liver; normal tract)
[2025-02-02] MEDS: FLOMAX 0.4 MG PO (08:10)
[2025-02-02] MEDS: PROTONIX IV 40 MG IV (08:10)
[2025-02-02] MEDS: NSS (PRESERVATIVE FREE) 10 ML IV (08:11)
[2025-02-02 15:46] VITALS: BP 145/87
[2025-02-02] MEDS: LOVENOX 40 MG SC (18:15)
[2025-02-02] MEDS: DILAUDID 4 MG PO (18:53)
[2025-02-02] MEDS: FLUSH (NSS) 1 FLUSH IV (20:40)
[2025-02-02] MEDS: FLUSH (NSS) 2 FLUSH IV ×2 (21:56→22:28)
[2025-02-02 23:11] VITALS: BP 138/91
[2025-02-03] MEDS: DILAUDID 4 MG PO ×4 (02:13→15:41)
[2025-02-03 06:00] VITALS: BMI 26.8
[2025-02-03] MEDS: ZOFRAN 4 MG IV ×2 (06:18→15:41)
[2025-02-03] MEDS: FLUSH (NSS) 2 FLUSH IV (06:19)
[2025-02-03 06:48] LABS: Hematocrit 25.6 % (39.0-52.0); Hemoglobin 8.0 g/dL (13.0-18.0); Mean Corp Hgb Conc. 31.3 g/dL (33.0-37.0); Mean Corpuscular Volume 84.5 fL (80.0-94.0); Nucleated Red Blood Cells % 0 % (-); Platelet Count 688 10^3/uL (130-400); Red Cell Dist. Width 15.8 % (11.5-14.5)
[2025-02-03 06:58] LABS: ALT (SGPT) 54 U/L (0-50); AST (SGOT) 93 U/L (17-59); Albumin 2.5 g/dl (3.5-5.0); Alkaline Phosphatase 479 U/L (38-126); Blood Urea Nitrogen 3 mg/dl (9-20); Calcium 8.1 mg/dl (8.4-10.2); Carbon Dioxide 29 mmol/L (22-30); Chloride 97 mmol/L (98-107); Estimated Creatinine Clearance > 125 ml/min; Glucose 122 mg/dl (70-99); Potassium 3.7 mmol/L (3.5-5.1); Sodium 132 mmol/L (135-145); Total Protein 5.7 g/dl (6.3-8.2); eGFR > 60.00
[2025-02-03 07:27] LABS: PSA, Total - Screen 0.26 ng/ml (0.0-4.0)
[2025-02-03 07:59] VITALS: BP 141/88
[2025-02-03] MEDS: FLOMAX 0.4 MG PO (08:06)
[2025-02-03] MEDS: PROTONIX IV 40 MG IV (08:07)
[2025-02-03] MEDS: NSS (PRESERVATIVE FREE) 10 ML IV (08:07)
[2025-02-03] MEDS: ROXICODONE 5 MG PO ×2 (08:16→19:49)
--- NOTE | 2025-02-03 08:17 | W.PN.HOSP.TC ---
Today's Communication/Plan
-
Increased PO Dilaudid for better pain control
Patient feeling very weak with ambulation and also still significant pain, likely from cancer
PT/OT recommended home health
Appreciate oncology input on cancer-related pain
Assessment / Plan
Assessment / Plan
Physical Exam
General: Well Developed, No Apparent Distress and Appears Chronically Ill
HEENT: Normocephalic, Atraumatic, Moist Mucous Membranes
Respiratory: Clear to Auscultation and Non Labored Respirations; Negative Accessory Resp Muscle Use
Cardiac: Regular Rhythm, S1/S2
GI: Soft, Nontender, Nondistended and Normal Bowel Sounds
Musculoskeletal: No Cyanosis and No Edema
Skin: Warm and Dry
Neuro: AO x 3, Strength and sensation nonfocal/grossly intact in the bilateral upper and lower extremities. Central Nerves 2 through 12 grossly intact
Psych: Calm
Assessment/Plan
49-year-old transgender F with past medical history of gallstone pancreatitis (cholecystectomy 2022), significant psoriatic arthritis on Humira 2 years ago (not taking because she lost her insurance) presented with abdominal pain. CT findings
consistent with metastatic gastrointestinal malignancy with circumferential encasing the GE junction and likely metastases to the liver and ribs. 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 Pathology results pending.
Downtrending serum sodium on clear liquid diet
#Unspecified GE junction neoplasm with metastases
- Presented with abdomen pain, weight loss; CT A/P with circumferential GE mass and signs of metastases to ribs and liver
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
- Tumor markers were sent out after arrival, CEA and AFP levels very high; oncology planning for OP PET/CT
- Continue with daily PPI prophylactically for now
- Follow-up pathology and plan for OP PET/CT
- CA 19-9 level high at 433
- IR biopsy of hepatic lesion requested -- the concern is the high AFP with hepatocellular carcinoma in the differential diagnosis -- liver biopsy took place on 02/01/25 -- follow-up on pathology results
- Hem/onc outpatient follow-up early next week
#Euvolemic hypotonic hyponatremia
- Suspect polydipsia on CLD, though cannot rule out SIADH with underlying malignancy
- Does not seem overly hypovolemic despite limited intake on CLD
- Sodium 134 on arrival, now stable around 130; serum osm 273
- Ordered urine osmolality and urine sodium support SIADH
- Continue 60 ounce dietary fluid restriction
- Trend BMP
#Anemia of chronic disease
#Thrombocytosis
#Leukocytosis
- Suspect both of these are reactive to underlying metastatic disease
- Iron studies with elevated ferritin and low TIBC; Hgb down trended with IVF
- Also has a significant reactive thrombocytosis with platelets between 800-1000
- Consider hydroxyurea for thrombocytosis, defer to oncology
- Continue to trend CBC with differential
#Sinus Tachycardia
- Likely physiologically driven by pain and anxiety from hospitalization
- Initial concern for PE though CTA PE protocol negative for emboli
- Improving with IV fluids and analgesia
- Continue on telemetry
#Urinary retention (?)
- Mentions that she has had episodes where it takes her a while to void
- Renal function stable, has been able to void after waiting periods of time
- Continue bladder scan protocol with straight cath as needed
- Likely from BPH along with narcotic pain meds and comorbidities; appreciate urology
- Start Flomax on 02/02/25
- [place] catheter voiding trial on 02/03/25
#Psoriatic arthritis
- Has known diagnosis for which she previously took Humira
- No longer on Humira since losing health insurance 2 years ago
- No signs of acute flare at this time
#Worsening Back Pain
-Patient has had chronic back pain for the past 6 to 12 months, attributed to arthritis
-Given suspected cancer, and worsened upper and lower back pain, checked MRI T and L spine for any metastases or spinal cord issues -- but those were not present
-Increased PO Dilaudid for better pain control
-Will start scheduled Tylenol
#H/O cholecystitis C/B gallstone pancreatitis s/p cholecystectomy
#H/O CBD stent s/p removal on 01/28/2025
#Severe Protein Calorie Malnutrition
Diet: CLD, 60 oz FR
DVT: Subq Lovenox
Code: Full
Dispo: Home with home health when medically stable
Anticipated Discharge: Within 24 hours
Subjective/Interval History
-
Date of Service: February 03, 2025
Patient was seen and examined. She reports persistent pain in her abdomen.
Objective Data
-
Labs:
Laboratory Results
02/03/25
06:10
WBC 18.5 H
Hgb 8.0 L
Hct 25.6 L
Plt Count 688 H
Sodium 132 L
Potassium 3.7
Chloride 97 L
Carbon Dioxide 29
BUN 3 L
Creatinine 0.5 L
Glucose 122 H
Calcium 8.1 L
Total Bilirubin 1.9 H
AST 93 H
ALT 54 H
Alkaline Phosphatase 479 H
Vital Signs:
Vital Signs
Temp Pulse Resp BP Pulse Ox
99.3 F 93 18 141/88 93
02/03/25 07:59 02/03/25 07:59 02/03/25 07:59 02/03/25 07:59 02/03/25 07:59
I&O
02/02/25 02/03/25 02/04/25
06:59 06:59 06:59
Intake Total 720 / 720 480 / 480
Output Total 950 / 950 1675 / 1675
Balance -230 / -230 -1195 / -1195
[2025-02-03 10:54] VITALS: BP 148/93; BP 157/96; PULSE 97; O2SAT 95
[2025-02-03 10:56] VITALS: BP 143/96; BP 148/93; BP 157/96; PULSE 113; PULSE 94; O2SAT 94
--- NOTE | 2025-02-03 13:44 | W.PN.URO.CBU ---
Today's Communication / Plan
-
voiding trial in progress
Assessment / Plan
-
Urinary Retention due to baseline prostate enlargement exacerbated by comorbidities, narcotics
Diagnosis
-
Date of Service: February 03, 2025
-
Patient Diagnosis:
Urinary Retention due to baseline prostate enlargement exacerbated by comorbidities, narcotics
Subjective
-
[place] removed ~ 11 AM
Objective
-
Vital Signs
Temp Pulse Resp BP Pulse Ox
99.3 F 93 18 141/88 93
02/03/25 07:59 02/03/25 07:59 02/03/25 07:59 02/03/25 07:59 02/03/25 07:59
Intake and Output
02/02/25 02/03/25 02/04/25
06:59 06:59 06:59
Intake Total 720 / 720 480 / 480
Output Total 950 / 950 1675 / 1675
Balance -230 / -230 -1195 / -1195
Intake:
Oral fluids 720 / 720 480 / 480
Output:
Urine, [place] 350 / 350 1675 / 1675
Straight cath output 600 / 600
Laboratory Results
02/03/25 06:10
02/03/25 06:10
PSA < 1
Physical Exam
-
General - well developed, well nourished, no acute distress
Chest - clear bilaterally
Abdomen - soft, non-tender, positive bowel sounds, no CVAT, no incisional pain or distention
Genitalia - normal
Rectal - normal
Skin - warm & dry with no rash
Neuro - AOx3, no motor deficits
Extremities - no clubbing, no cyanosis, no edema
Incision - clean, dry
Dressing - clean, dry, intact
[2025-02-03 15:31] VITALS: BP 143/87
--- NOTE | 2025-02-03 15:35 | CM ---
CM following re: discharge planning.
Reviewed pt's chart, met with pt.
Per chart review, continue supportive care.
[facility] following.
Pt lives with father 2SH, 2 steps to enter.
PT and OT evaluations noted - home PT/OT recommended. Pt is aware, expressed her understanding being uninsured.
D/c plan: home with family.
CM will follow with discharge plan updates as hospitalization progresses
[2025-02-03] MEDS: LOVENOX 40 MG SC (17:09)
[2025-02-03] MEDS: TYLENOL 1000 MG PO ×2 (17:09→23:09)
[2025-02-03 23:21] VITALS: BP 139/85
[2025-02-04] MEDS: ROXICODONE 5 MG PO ×2 (02:12→06:41)
[2025-02-04] MEDS: ZOFRAN 4 MG IV ×3 (02:16→16:30)
[2025-02-04 06:00] VITALS: BMI 26.7
[2025-02-04 07:17] LABS: Hematocrit 26.5 % (39.0-52.0); Hemoglobin 8.2 g/dL (13.0-18.0); Mean Corp Hgb Conc. 30.9 g/dL (33.0-37.0); Mean Corpuscular Volume 84.9 fL (80.0-94.0); Nucleated Red Blood Cells % 0 % (-); Platelet Count 676 10^3/uL (130-400); Red Cell Dist. Width 16.0 % (11.5-14.5)
[2025-02-04 07:31] VITALS: BP 145/87
[2025-02-04 07:45] LABS: ALT (SGPT) 56 U/L (0-50); AST (SGOT) 90 U/L (17-59); Albumin 2.4 g/dl (3.5-5.0); Alkaline Phosphatase 450 U/L (38-126); Blood Urea Nitrogen 4 mg/dl (9-20); Calcium 8.2 mg/dl (8.4-10.2); Carbon Dioxide 33 mmol/L (22-30); Chloride 97 mmol/L (98-107); Estimated Creatinine Clearance > 125 ml/min; Glucose 99 mg/dl (70-99); Potassium 3.6 mmol/L (3.5-5.1); Sodium 131 mmol/L (135-145); Total Protein 5.8 g/dl (6.3-8.2); eGFR > 60.00
[2025-02-04] MEDS: TYLENOL 1000 MG PO ×3 (07:58→23:07)
[2025-02-04] MEDS: FLOMAX 0.4 MG PO (07:59)
[2025-02-04] MEDS: NSS (PRESERVATIVE FREE) 10 ML IV (07:59)
[2025-02-04] MEDS: PROTONIX IV 40 MG IV (07:59)
--- NOTE | 2025-02-04 10:42 | W.PN.HOSP.TC ---
Today's Communication/Plan
-
Intensified pain regimen, as patient is still in a lot of pain and feels not ready to go home yet
Assessment / Plan
Assessment / Plan
Physical Exam
General: Well Developed, No Apparent Distress and Appears Chronically Ill
HEENT: Normocephalic, Atraumatic, Moist Mucous Membranes
Respiratory: Clear to Auscultation and Non Labored Respirations; Negative Accessory Resp Muscle Use
Cardiac: Regular Rhythm, S1/S2
GI: Soft, Nontender, Nondistended and Normal Bowel Sounds
Musculoskeletal: No Cyanosis and No Edema
Skin: Warm and Dry
Neuro: AO x 3, Strength and sensation nonfocal/grossly intact in the bilateral upper and lower extremities. Central Nerves 2 through 12 grossly intact
Psych: Calm
Assessment/Plan
49-year-old transgender F with past medical history of gallstone pancreatitis (cholecystectomy 2022), significant psoriatic arthritis on Humira 2 years ago (not taking because she lost her insurance) presented with abdominal pain. CT findings
consistent with metastatic gastrointestinal malignancy with circumferential encasing the GE junction and likely metastases to the liver and ribs. 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 Pathology results pending.
Downtrending serum sodium on clear liquid diet
#Unspecified GE junction neoplasm with metastases
- Presented with abdomen pain, weight loss; CT A/P with circumferential GE mass and signs of metastases to ribs and liver
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
- Tumor markers were sent out after arrival, CEA and AFP levels very high; oncology planning for OP PET/CT
- Continue with daily PPI prophylactically for now
- Follow-up pathology and plan for OP PET/CT
- CA 19-9 level high at 433
- IR biopsy of hepatic lesion requested -- the concern is the high AFP with hepatocellular carcinoma in the differential diagnosis -- liver biopsy took place on 02/01/25 -- follow-up on pathology results
- Hem/onc outpatient follow-up early next week
- As of 02/04/25 -- patient is still having A LOT of pain -- started scheduled Oxycodone
#Euvolemic hypotonic hyponatremia
- Suspect polydipsia on CLD, though cannot rule out SIADH with underlying malignancy
- Does not seem overly hypovolemic despite limited intake on CLD
- Sodium 134 on arrival, now stable around 130; serum osm 273
- Ordered urine osmolality and urine sodium support SIADH
- Continue 60 ounce dietary fluid restriction
- Trend BMP
#Anemia of chronic disease
#Thrombocytosis
#Leukocytosis
- Suspect both of these are reactive to underlying metastatic disease
- Iron studies with elevated ferritin and low TIBC; Hgb down trended with IVF
- Also has a significant reactive thrombocytosis with platelets between 800-1000
- Consider hydroxyurea for thrombocytosis, defer to oncology
- Continue to trend CBC with differential
#Sinus Tachycardia
- Likely physiologically driven by pain and anxiety from hospitalization
- Initial concern for PE though CTA PE protocol negative for emboli
- Improving with IV fluids and analgesia
- Continue on telemetry
#Urinary retention (?)
- Mentions that she has had episodes where it takes her a while to void
- Renal function stable, has been able to void after waiting periods of time
- Continue bladder scan protocol with straight cath as needed
- Likely from BPH along with narcotic pain meds and comorbidities; appreciate urology
- Start Flomax on 02/02/25
- [place] catheter voiding trial on 02/03/25 -- passed it, continues to void well
#Psoriatic arthritis
- Has known diagnosis for which she previously took Humira
- No longer on Humira since losing health insurance 2 years ago
- No signs of acute flare at this time
#Worsening Back Pain
-Patient has had chronic back pain for the past 6 to 12 months, attributed to arthritis
-Given suspected cancer, and worsened upper and lower back pain, checked MRI T and L spine for any metastases or spinal cord issues -- but those were not present
-Increased PO Dilaudid for better pain control
-Started scheduled high dose Oxycodone
#H/O cholecystitis C/B gallstone pancreatitis s/p cholecystectomy
#H/O CBD stent s/p removal on 01/28/2025
#Severe Protein Calorie Malnutrition
Diet: CLD, 60 oz FR
DVT: Subq Lovenox
Code: Full
Dispo: Home with home health when medically stable
Anticipated Discharge: 24 - 48 hours
Subjective/Interval History
-
Date of Service: February 04, 2025
Patient was seen and examined. She reported still having a lot of pain, not ready to go home.
Objective Data
-
Labs:
Laboratory Results
02/04/25
06:25
WBC 15.9 H
Hgb 8.2 L
Hct 26.5 L
Plt Count 676 H
Sodium 131 L
Potassium 3.6
Chloride 97 L
Carbon Dioxide 33 H
BUN 4 L
Creatinine 0.5 L
Glucose 99
Calcium 8.2 L
Total Bilirubin 1.4 H
AST 90 H
ALT 56 H
Alkaline Phosphatase 450 H
Vital Signs:
Vital Signs
Temp Pulse Resp BP Pulse Ox
98.4 F 91 18 145/87 92
02/04/25 07:31 02/04/25 07:31 02/04/25 07:31 02/04/25 07:31 02/04/25 07:31
I&O
02/03/25 02/04/25 02/05/25
06:59 06:59 06:59
Intake Total 480 / 480 440 / 440
Output Total 1675 / 1675 1350 / 1350
Balance -1195 / -1195 -910 / -910
[2025-02-04] MEDS: ROXICODONE 10 MG PO ×3 (11:15→23:07)
[2025-02-04 12:40] VITALS: BP 146/92; PULSE 91; O2SAT 98
[2025-02-04 15:46] VITALS: BP 132/88
[2025-02-04] MEDS: DILAUDID 0.5 MG IV ×2 (16:31→20:45)
--- NOTE | 2025-02-04 17:06 | CM ---
PT OT indicate VN.
Pt has no insurance .
[facility] saw patient for no insurance.
PLAN Home no needs
[2025-02-04] MEDS: LOVENOX 40 MG SC (18:29)
[2025-02-04 22:57] VITALS: BP 145/87
[2025-02-05] MEDS: DILAUDID 0.5 MG IV ×3 (03:58→15:52)
[2025-02-05] MEDS: ROXICODONE 10 MG PO ×2 (05:33→13:34)
[2025-02-05 07:27] VITALS: BP 141/83
[2025-02-05 07:29] LABS: Hematocrit 25.5 % (39.0-52.0); Hemoglobin 8.2 g/dL (13.0-18.0); Mean Corp Hgb Conc. 32.2 g/dL (33.0-37.0); Mean Corpuscular Volume 85.3 fL (80.0-94.0); Nucleated Red Blood Cells % 0 % (-); Platelet Count 727 10^3/uL (130-400); Red Cell Dist. Width 16.3 % (11.5-14.5)
[2025-02-05 07:59] LABS: ALT (SGPT) 50 U/L (0-50); AST (SGOT) 76 U/L (17-59); Albumin 2.3 g/dl (3.5-5.0); Alkaline Phosphatase 413 U/L (38-126); Blood Urea Nitrogen 10 mg/dl (9-20); Calcium 7.9 mg/dl (8.4-10.2); Carbon Dioxide 31 mmol/L (22-30); Chloride 98 mmol/L (98-107); Estimated Creatinine Clearance > 125 ml/min; Glucose 104 mg/dl (70-99); Potassium 4.0 mmol/L (3.5-5.1); Sodium 132 mmol/L (135-145); Total Protein 5.6 g/dl (6.3-8.2); eGFR > 60.00
[2025-02-05] MEDS: PROTONIX IV 40 MG IV (08:44)
[2025-02-05] MEDS: TYLENOL 1000 MG PO ×3 (08:44→23:02)
[2025-02-05] MEDS: NSS (PRESERVATIVE FREE) 10 ML IV (08:44)
[2025-02-05] MEDS: MIRALAX 17 GRAMS PO (08:44)
[2025-02-05] MEDS: FLOMAX 0.4 MG PO (08:44)
[2025-02-05] MEDS: ZOFRAN 4 MG IV ×3 (08:47→23:14)
[2025-02-05 15:40] VITALS: BP 156/80
--- NOTE | 2025-02-05 18:16 | W.PN.HOSP.TC ---
Today's Communication/Plan
-
Patient with still severe 8/10 pain, cannot move without this pain
Patient wants the pain to go down to 6/10 pain before going home
Oxycodone dose increased based on previous 24 hours of previous IV Dilaudid use
Place on telemetry and continuous pulse ox to monitor patient while opioid dose increased
Assessment / Plan
Assessment / Plan
Physical Exam
General: Well Developed, No Apparent Distress and Appears Chronically Ill
HEENT: Normocephalic, Atraumatic, Moist Mucous Membranes
Respiratory: Clear to Auscultation and Non Labored Respirations; Negative Accessory Resp Muscle Use
Cardiac: Regular Rhythm, S1/S2
GI: Soft, Nontender, Nondistended and Normal Bowel Sounds
Musculoskeletal: No Cyanosis and No Edema
Skin: Warm and Dry
Neuro: AO x 3, Strength and sensation nonfocal/grossly intact in the bilateral upper and lower extremities. Central Nerves 2 through 12 grossly intact
Psych: Calm
Assessment/Plan
49-year-old transgender F with past medical history of gallstone pancreatitis (cholecystectomy 2022), significant psoriatic arthritis on Humira 2 years ago (not taking because she lost her insurance) presented with abdominal pain. CT findings
consistent with metastatic gastrointestinal malignancy with circumferential encasing the GE junction and likely metastases to the liver and ribs. 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 Pathology results pending.
Downtrending serum sodium on clear liquid diet
#Unspecified GE junction neoplasm with metastases
- Presented with abdomen pain, weight loss; CT A/P with circumferential GE mass and signs of metastases to ribs and liver
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
- Tumor markers were sent out after arrival, CEA and AFP levels very high; oncology planning for OP PET/CT
- Continue with daily PPI prophylactically for now
- Follow-up pathology and plan for OP PET/CT
- CA 19-9 level high at 433
- IR biopsy of hepatic lesion requested -- the concern is the high AFP with hepatocellular carcinoma in the differential diagnosis -- liver biopsy took place on 02/01/25 -- follow-up on pathology results
- Hem/onc outpatient follow-up early next week
- As of 02/04/25 -- patient is still having A LOT of pain -- started scheduled Oxycodone -- increased dose on 02/05/25 based on previous 24 hours use of breakthrough medications
#Euvolemic hypotonic hyponatremia
- Suspect polydipsia on CLD, though cannot rule out SIADH with underlying malignancy
- Does not seem overly hypovolemic despite limited intake on CLD
- Sodium 134 on arrival, now stable around 130; serum osm 273
- Ordered urine osmolality and urine sodium support SIADH
- Continue 60 ounce dietary fluid restriction
- Trend BMP
#Anemia of chronic disease
#Thrombocytosis
#Leukocytosis
- Suspect both of these are reactive to underlying metastatic disease
- Iron studies with elevated ferritin and low TIBC; Hgb down trended with IVF
- Also has a significant reactive thrombocytosis with platelets between 800-1000
- Consider hydroxyurea for thrombocytosis, defer to oncology
- Continue to trend CBC with differential
#Sinus Tachycardia
- Likely physiologically driven by pain and anxiety from hospitalization
- Initial concern for PE though CTA PE protocol negative for emboli
- Improving with IV fluids and analgesia
- Continue on telemetry
#Urinary retention (?)
- Mentions that she has had episodes where it takes her a while to void
- Renal function stable, has been able to void after waiting periods of time
- Continue bladder scan protocol with straight cath as needed
- Likely from BPH along with narcotic pain meds and comorbidities; appreciate urology
- Start Flomax on 02/02/25
- [place] catheter voiding trial on 02/03/25 -- passed it, continues to void well
#Psoriatic arthritis
- Has known diagnosis for which she previously took Humira
- No longer on Humira since losing health insurance 2 years ago
- No signs of acute flare at this time
#Worsening Back Pain
-Patient has had chronic back pain for the past 6 to 12 months, attributed to arthritis
-Given suspected cancer, and worsened upper and lower back pain, checked MRI T and L spine for any metastases or spinal cord issues -- but those were not present
-Pain control as above
#H/O cholecystitis C/B gallstone pancreatitis s/p cholecystectomy
#H/O CBD stent s/p removal on 01/28/2025
#Severe Protein Calorie Malnutrition
Diet: CLD, 60 oz FR
DVT: Subq Lovenox
Code: Full
Dispo: Home with home health when medically stable
Anticipated Discharge: 24 - 48 hours
Subjective/Interval History
-
Date of Service: February 05, 2025
Patient was seen and examined. She was reporting she still has severe pain with any movement, she says she cannot function with this pain.
Objective Data
-
Labs:
Laboratory Results
02/05/25
06:20
WBC 17.2 H
Hgb 8.2 L
Hct 25.5 L
Plt Count 727 H
Sodium 132 L
Potassium 4.0
Chloride 98
Carbon Dioxide 31 H
BUN 10
Creatinine 0.5 L
Glucose 104 H
Calcium 7.9 L
Total Bilirubin 1.2
AST 76 H
ALT 50
Alkaline Phosphatase 413 H
Vital Signs:
Vital Signs
Temp Pulse Resp BP Pulse Ox
98.6 F 91 16 156/80 93
02/05/25 15:40 02/05/25 15:40 02/05/25 15:40 02/05/25 15:40 02/05/25 15:40
I&O
02/04/25 02/05/25 02/06/25
06:59 06:59 06:59
Intake Total 440 / 440 720 / 720
Output Total 1350 / 1350
Balance -910 / -910 720 / 720
[2025-02-05] MEDS: ROXICODONE PO (18:40)
[2025-02-05] MEDS: LOVENOX 40 MG SC (18:41)
[2025-02-05] MEDS: ROXICODONE 15 MG PO (23:01)
[2025-02-05 23:06] VITALS: BP 140/92
--- NOTE | 2025-02-06 00:38 | PTCARENOTE ---
Patient's pulse ox- 87% on RA when sleeping, applied oxygen 2L n/c sat-94%.
[2025-02-06 02:55] VITALS: BP 152/94
[2025-02-06 04:05] VITALS: BMI 26.7
[2025-02-06] MEDS: ROXICODONE 15 MG PO ×4 (06:00→23:06)
[2025-02-06 07:29] VITALS: BP 146/93
[2025-02-06] MEDS: TYLENOL 1000 MG PO ×3 (07:42→23:07)
[2025-02-06] MEDS: FLOMAX 0.4 MG PO (07:42)
[2025-02-06] MEDS: MIRALAX 17 GRAMS PO (07:43)
[2025-02-06] MEDS: NSS (PRESERVATIVE FREE) 10 ML IV (07:43)
[2025-02-06] MEDS: PROTONIX IV 40 MG IV (07:43)
[2025-02-06] MEDS: DILAUDID 2 MG PO ×3 (07:45→20:21)
[2025-02-06] MEDS: ZOFRAN 4 MG IV ×2 (07:50→15:38)
[2025-02-06 08:45] LABS: B.E. 4.7 mmol/L; HCO3 28.2 mmol/L (21-28); O2 Saturation % 99.2 % (94-98); PCO2 37 mmHg (35-48); PO2 94 mmHg (83-108)
[2025-02-06 08:48] LABS: O2 Therapy 2LNC
--- NOTE | 2025-02-06 10:39 | W.PN.HOSP.TC ---
Today's Communication/Plan
-
Still with significant pain, although slightly improved from day before
Oxycodone increased yesterday from Oxycodone 10 mg PO Q6H to 15 mg PO Q6H, breakthrough Dilaudid changed to PO form
Have to be careful with Oxycodone titration since patient became hypoxic 87% on room air last night
No further changes made today
Patient stated pain is still severe but slightly better than yesterday, still at 7 to 9 out of 10.
She refused discharge until pain is less than 6 out of 10.
Assessment / Plan
Assessment / Plan
Physical Exam
General: Well Developed, No Apparent Distress and Appears Chronically Ill
HEENT: Normocephalic, Atraumatic, Moist Mucous Membranes
Respiratory: Clear to Auscultation Bilaterally
Cardiac: Regular Rhythm, S1/S2
GI: Soft, Nontender, Nondistended and Normal Bowel Sounds
Musculoskeletal: No Cyanosis and No Edema
Skin: Warm and Dry
Neuro: AAO x 3, Strength and sensation nonfocal/grossly intact in the bilateral upper and lower extremities. Central Nerves 2 through 12 grossly intact
Psych: Calm
Assessment/Plan
49-year-old transgender F with past medical history of gallstone pancreatitis (cholecystectomy 2022), significant psoriatic arthritis on Humira 2 years ago (not taking because she lost her insurance) presented with abdominal pain. CT findings
consistent with metastatic gastrointestinal malignancy with circumferential encasing the GE junction and likely metastases to the liver and ribs. 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
#Unspecified GE junction neoplasm with metastases
- Presented with abdomen pain, weight loss; CT A/P with circumferential GE mass and signs of metastases to ribs and liver
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
- Tumor markers were sent out after arrival, CEA and AFP levels very high; oncology planning for OP PET/CT
- Continue with daily PPI prophylactically for now
- Follow-up pathology and plan for OP PET/CT
- CA 19-9 level high at 433
- IR biopsy of hepatic lesion requested -- the concern is the high AFP with hepatocellular carcinoma in the differential diagnosis -- liver biopsy took place on 02/01/25 -- follow-up on pathology results
- Hem/onc outpatient follow-up soon after discharge
- As of 02/04/25 -- patient is still having A LOT of pain -- started scheduled Oxycodone -- increased dose on 02/05/25 based on previous 24 hours use of breakthrough medications
- Patient had some hypoxia overnight, see below, could be related to not moving much due to pain, as well as new narcotic pain meds -- will keep current dose of Oxycodone as patient's pain is improving
very slowly
#Transient Hypoxia 02/05/25 to 02/06/25 overnight
-Could be related to not moving much due to pain, as well as new narcotic pain meds -- will keep current dose of Oxycodone as patient's pain is improving very slowly
-ABG okay
-CXR with pleural effusion -- small
-Spoke w/ pulmonary, just do incentive spirometry atelectasis
-Follow-up 2 view CXR tomorrow
-Appreciate pulmonary
#Euvolemic hypotonic hyponatremia
- Suspect polydipsia on CLD, though cannot rule out SIADH with underlying malignancy
- Does not seem overly hypovolemic despite limited intake on CLD
- Sodium 134 on arrival, now stable around 130; serum osm 273
- Urine osmolality and urine sodium support SIADH
- 48 ounce dietary fluid restriction
- Recheck BMP
#Anemia of chronic disease
#Thrombocytosis
#Leukocytosis
- Suspect both of these are reactive to underlying metastatic disease
- Iron studies with elevated ferritin and low TIBC; Hgb down trended with IVF
- Also has a significant reactive thrombocytosis with platelets between 800-1000
- Consider hydroxyurea for thrombocytosis, defer to oncology
- Continue to trend CBC with differential
#Sinus Tachycardia
- Likely physiologically driven by pain and anxiety from hospitalization
- Initial concern for PE though CTA PE protocol negative for emboli
- Improving with IV fluids and analgesia
- Continue on telemetry
#Urinary retention (?)
- Mentions that she has had episodes where it takes her a while to void
- Renal function stable, has been able to void after waiting periods of time
- Continue bladder scan protocol with straight cath as needed
- Likely from BPH along with narcotic pain meds and comorbidities; appreciate urology
- Start Flomax on 02/02/25
- [place] catheter voiding trial on 02/03/25 -- passed it, continues to void well
#Psoriatic arthritis
- Has known diagnosis for which she previously took Humira
- No longer on Humira since losing health insurance 2 years ago
- No signs of acute flare at this time
#Worsening Back Pain
-Patient has had chronic back pain for the past 6 to 12 months, attributed to arthritis
-Given suspected cancer, and worsened upper and lower back pain, checked MRI T and L spine for any metastases or spinal cord issues -- but those were not present
-Pain control as above
#H/O cholecystitis C/B gallstone pancreatitis s/p cholecystectomy
#H/O CBD stent s/p removal on 01/28/2025
#Severe Protein Calorie Malnutrition
DVT: Subq Lovenox
Code: Full
Dispo: Home with home health when medically stable
Anticipated Discharge: 24 - 48 hours
Subjective/Interval History
-
Date of Service: February 06, 2025
Patient was seen and examined. She had some hypoxia overnight. Still with significant pain.
Objective Data
-
Labs:
Laboratory Results
02/06/25
08:30
HCO3 28.2 H
Vital Signs:
Vital Signs
Temp Pulse Resp BP Pulse Ox
98.3 F 89 17 146/93 98
02/06/25 07:29 02/06/25 07:29 02/06/25 07:29 02/06/25 07:29 02/06/25 09:15
I&O
02/05/25 02/06/25 02/07/25
06:59 06:59 06:59
Intake Total 720 / 720 590 / 590
Balance 720 / 720 590 / 590
[2025-02-06 11:36] VITALS: BP 138/91
[2025-02-06] MEDS: COMPAZINE 2.5 MG IV ×2 (11:52→20:23)
[2025-02-06] MEDS: LASIX 20 MG IV (13:07)
--- NOTE | 2025-02-06 14:56 | CON.PUL ---
Consultation
Consultation Request
Date/Time Consultation Requested: 02/06/2025
Date/Time Consultation Performed: 02/06/2025
Medical History
-
Chief Complaint: Hypoxia
History of Present Illness:
49-year-old transgender patient presented to the hospital on 01/28 with chief complaint of abdominal pain. Further workup included a CT abdomen pelvis which was concerning for multiple hepatic lesions, likely metastasis. CT chest was also pursued
which was negative for any pulmonary embolism however reported circumferential thickening at GE junction highly suspicious for esophageal mass. Patient was subsequently evaluated by oncology and GI service. Patient had endoscopy performed with
biopsies. In addition, IR guided liver mass biopsies were obtained. Results are currently pending.
02/06, pulmonary service was consulted for transient hypoxemia noted overnight. Patient was sleeping and was noted to have oxygen saturation in mid 80s, which responded well to supplemental oxygen. Patient denies any cough, shortness of breath,
pleuritic discomfort, orthopnea, PND or hemoptysis. During my evaluation, patient was saturating well and 94% on room air and asymptomatic from pulmonary standpoint. Stat ABG was performed which was unremarkable. Chest x-ray was performed which
was suggestive of small left-sided pleural effusion. And some atelectasis. Pulmonary consultation was requested for further input.
No prior known history of pulmonary disease. Patient had childhood asthma which she grew out of during teen years. Smoked very briefly during her college time. No occupational exposure reported. At baseline has not been on any inhalers.
Past Medical History
Past Medical History: Asthma, Psychiatric (anxiety,depression, transgender) and Other (psoriatic arthritis, gallstone pancreatitis )
Past Surgical History: Cholecystectomy and Other (biliary stent )
Social History
Tobacco: Former Smoker (quit age 25)
Alcohol: Occasional
Drug: None
Living: With Family (father )
Employment: Not Employed
Family History
Family History: Other (aunt with cancer )
Allergies / Home Medications
Allergies
Allergy/AdvReac Type Severity Reaction Status Date / Time
No Known Allergies Allergy Verified 01/28/25 00:12
Home Medications
�Medication �Instructions �Recorded �Confirmed �Last Taken �Type
No Meds [No Current Medications] 01/28/25 01/28/25 Unknown History
Review of Systems
-
Hematologic/Lymphatic: Other (All 14 systems reviewed and negative except as stated above in the history of present illness.)
Vitals / Labs / Diagnostic Testing
Vital Signs
Temp Pulse Resp BP Pulse Ox
98.5 F 87 16 138/91 94
02/06/25 11:36 02/06/25 13:07 02/06/25 11:36 02/06/25 13:07 02/06/25 11:36
Lab Data
02/05/25 06:20
02/05/25 06:20
Laboratory Results
02/06/25
08:30
pH 7.49 H
pCO2 37
pO2 94
HCO3 28.2 H
O2 Delivery Level 2lnc
Diagnostic Testing:
Physical Exam
-
HEENT: Normocephalic
Cardiovascular: S1/S2 and Peripheral Edema (Trace pedal edema)
Respiratory: Clear and Non-Labored Respirations
GI: Soft and Non Distended
Neurology: Awake and Alert
Skin: Warm
General: Comfortable
Assessment
-
#1. Hypoxia, transient
- 02/06, pulmonary consulted for transient hypoxemia overnight requiring 2 L. During my evaluation patient was on room air saturating 94%
- Suspect hypoxia during physiological hypoventilation while sleeping, in the setting of trace pleural effusions and narcotic use. Cannot rule out underlying sleep disordered breathing
- ABG 7.49 on room air. Patient asymptomatic from pulmonary standpoint. No cough, dyspnea, pleuritic discomfort, shortness of breath reported
- Continue to monitor saturations, target SpO2 more than 90%
- Minimize sedating medications particularly opiates
- Patient can benefit from outpatient sleep study for further evaluation
- Patient had negative CT for pulmonary embolism on 01/28/2025, lately has been on DVT prophylaxis with subcu Lovenox making acute PE less likely.
- Start incentive spirometry to help with bibasilar atelectasis
#2. Trace pleural effusion.
- Suspect in the setting of hypoalbuminemia, serum albumin 2.3
- BNP is normal at 109. Trace pedal edema on exam. Patient had a CT chest performed about 9 days ago which showed essentially clear lungs without evidence of metastasis or pulmonary embolism.
- Lasix 20 mg x 1 today
- Follow-up chest x-ray two-view for better evaluation in a.m.
- Currently effusions are fairly small, unlikely to be symptomatic and are not large enough for safe thoracentesis
- Avoid additional IV fluids, monitor input and output closely, follow-up on imaging
#3. 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
- s/p EGD with biopsy and IR guided liver lesion biopsy
- Oncology and GI service on case, await final results
Other medical diagnoses:
- Prior history of gallstone pancreatitis in 2022, status postcholecystectomy
- Psoriatic arthritis, had been on Humira in the past
- H/o Childhood asthma. Asymptomatic since teen years
- H/o Smoking. Brief smoking history during college, none since
DVT prophylaxis with subcu Lovenox
Total time spent on this consultation/encounter __62__ minutes which includes review of history, physical exam, medications, laboratory data, personal review of imaging, extensive review of outpatient records, discussion with care team and
respiratory therapy.
Data:
CXR 01/2025: 1. Low inspiratory volumes.
2. Haziness of each hemidiaphragm, which may represent bibasilar subsegmental atelectasis or pneumonia.
3. Small left pleural effusion is suspected. Consider PA and lateral views when possible.
CT Chest 01/2025: 1. No evidence of pulmonary embolism or thoracic aortic dissection.
2. Clear lungs.
3. Hepatic metastasis. Suspected distal esophageal cancer (please see recent CT abdomen and pelvis).
CT A/P 01/2025: 1. Innumerable hepatic metastases. Mild hepatic enlargement.
2. Bowel wall thickening at the gastroesophageal junction, likely reflective of esophageal carcinoma.
3. Enlarged lymph nodes near the gastroesophageal junction, measuring up to 1.2 cm in diameter.
4. Expansile metastasis within the right anterior ninth rib, measuring 5.8 cm in greatest dimension.
[2025-02-06 15:25] VITALS: BP 135/89
[2025-02-06] MEDS: LOVENOX 40 MG SC (17:10)
[2025-02-06 19:15] VITALS: BP 130/87
[2025-02-06 23:41] VITALS: BP 142/88
[2025-02-07] VITALS (8 sets, daily range): BP systolic 123–139; BP diastolic 84–95; PULSE 94; O2SAT 97; BMI 26.7
[2025-02-07] MEDS: DILAUDID 2 MG PO ×3 (02:18→15:41)
[2025-02-07] MEDS: ZOFRAN 4 MG IV ×2 (04:33→11:43)
[2025-02-07] MEDS: ROXICODONE 15 MG PO ×2 (05:09→11:43)
[2025-02-07] MEDS: MIRALAX 17 GRAMS PO (08:02)
[2025-02-07] MEDS: VITAMIN B1 100 MG PO ×2 (08:08→20:09)
[2025-02-07] MEDS: NSS (PRESERVATIVE FREE) 10 ML IV (08:08)
[2025-02-07] MEDS: COMPAZINE 2.5 MG IV (08:08)
[2025-02-07] MEDS: PROTONIX IV 40 MG IV (08:08)
[2025-02-07] MEDS: TYLENOL 1000 MG PO ×3 (08:09→23:31)
[2025-02-07] MEDS: FLOMAX 0.4 MG PO (08:09)
--- NOTE | 2025-02-07 09:42 | W.PN.PUL3 ---
Today's Communication / Plan
-
Remains on 2 L, no new complaints-Will obtain home O2 eval
We discussed outpatient follow-up for further management, including sleep study--will place instructions on discharge
She has ongoing follow-up with oncology, pain management
Discharge planning otherwise per team
We will arrange outpatient follow-up
Assessment
-
49-year-old transgender patient presented to the hospital on 01/28 with chief complaint of abdominal pain. Further workup included a CT abdomen pelvis which was concerning for multiple hepatic lesions, likely metastasis. CT chest was also pursued
which was negative for any pulmonary embolism however reported circumferential thickening at GE junction highly suspicious for esophageal mass. Patient was subsequently evaluated by oncology and GI service. Patient had endoscopy performed with
biopsies. In addition, IR guided liver mass biopsies were obtained. Results are currently pending.
02/06, pulmonary service was consulted for transient hypoxemia noted overnight. Patient was sleeping and was noted to have oxygen saturation in mid 80s, which responded well to supplemental oxygen. Patient denies any cough, shortness of breath,
pleuritic discomfort, orthopnea, PND or hemoptysis. During my evaluation, patient was saturating well and 94% on room air and asymptomatic from pulmonary standpoint. Stat ABG was performed which was unremarkable. Chest x-ray was performed which
was suggestive of small left-sided pleural effusion and some atelectasis. Pulmonary consultation was requested for further input.
Hypoxia, transient
Likely postop atelectasis
Trace pleural effusion
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
Other medical diagnoses:
Prior history of gallstone pancreatitis in 2022, status postcholecystectomy
Psoriatic arthritis, had been on Humira in the past
H/o Childhood asthma. Asymptomatic since teen years
H/o Smoking. Brief smoking history during college, none since
Depression
Transgender- identifies as female
Pt seeing therapist and government relations manager in [place] that specialize in transgender cases.
On estrogen therapy, plans to make full transition in the distant future.
Plan
No prior known history of pulmonary disease. Patient had childhood asthma which she grew out of during teen years. Smoked very briefly during her college time. No occupational exposure reported. At baseline has not been on any inhalers.
02/06, pulmonary consulted for transient hypoxemia overnight requiring 2 L. During my evaluation patient was on room air saturating 94%
- Suspect hypoxia during physiological hypoventilation while sleeping, in the setting of trace pleural effusions and narcotic use. Cannot rule out underlying sleep disordered breathing
- ABG 7.49//94 on room air. Patient asymptomatic from pulmonary standpoint. No cough, dyspnea, pleuritic discomfort, shortness of breath reported
- Continue to monitor saturations, target SpO2 more than 90%
- Minimize sedating medications particularly opiates
- Patient can benefit from outpatient sleep study for further evaluation
- Patient had negative CT for pulmonary embolism on 01/28/2025, lately has been on DVT prophylaxis with subcu Lovenox making acute PE less likely.
- Start incentive spirometry to help with bibasilar atelectasis
Home O2 eval
Effusion- Suspect in the setting of hypoalbuminemia, serum albumin 2.3
- BNP is normal at 109. Trace pedal edema on exam. Patient had a CT chest performed about 9 days ago which showed essentially clear lungs without evidence of metastasis or pulmonary embolism.
- Lasix 20 mg x 1 today
- Follow-up chest x-ray two-view for better evaluation in a.m.--thus far demonstrating very low lung volumes
Likely atelectasis, encouraged IS/ambulation
- Currently effusions are fairly small, unlikely to be symptomatic and are not large enough for safe thoracentesis
- Avoid additional IV fluids, monitor input and output closely, follow-up on imaging
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
- s/p EGD with biopsy and IR guided liver lesion biopsy
- Oncology and GI service on case, await final results
DVT prophylaxis with subcu Lovenox
PT/OT, OOB
Discharge planning per team pending medical management of lesions
Data:
CXR 01/2025: 1. Low inspiratory volumes.
2. Haziness of each hemidiaphragm, which may represent bibasilar subsegmental atelectasis or pneumonia.
3. Small left pleural effusion is suspected. Consider PA and lateral views when possible.
CT Chest 01/2025: 1. No evidence of pulmonary embolism or thoracic aortic dissection.
2. Clear lungs.
3. Hepatic metastasis. Suspected distal esophageal cancer (please see recent CT abdomen and pelvis).
CT A/P 01/2025: 1. Innumerable hepatic metastases. Mild hepatic enlargement.
2. Bowel wall thickening at the gastroesophageal junction, likely reflective of esophageal carcinoma.
3. Enlarged lymph nodes near the gastroesophageal junction, measuring up to 1.2 cm in diameter.
4. Expansile metastasis within the right anterior ninth rib, measuring 5.8 cm in greatest dimension.
Total time spent on this consultation/encounter __50__ minutes which includes review of history, physical exam, medications, laboratory data, personal review of imaging, extensive review of outpatient records, discussion with care team and
respiratory therapy.
Subjective Data
-
Date of Service:
Date of Service: February 07, 2025
Chief Complaint: Pulmonary Follow Up
Subjective:
No new complaints, remains on 2 L
She feels there is chronic pain more of an issue at this time send shortness of breath
Objective Data
Data Reviewed
Vital Signs / I&O / Oxygen:
Vital Signs
Temp Pulse Resp BP Pulse Ox
98.7 F 100 16 133/86 93
02/07/25 07:25 02/07/25 07:25 02/07/25 07:25 02/07/25 07:25 02/07/25 07:25
Intake and Output
02/06/25 02/07/25 02/08/25
06:59 06:59 06:59
Intake Total 590 / 590 860 / 860
Balance 590 / 590 860 / 860
SaO2 93
Nasal Cannula flow liters per 2
minute
Physical Exam
General: Comfortable and Other (NAD)
HEENT: Normocephalic, Anicteric and Moist Mucous Membranes
Cardiovascular: S1-S2 and Regular Rhythm
Respiratory: Clear and Non-Labored Respirations
GI: Soft, Non Distended and Non Tender
Neurology: Awake, Alert, Oriented and No Motor Deficits
Skin: Warm, Dry and Good Color
Labs/Micro/Reports
Lab Data
02/05/25 06:20
02/05/25 06:20
--- NOTE | 2025-02-07 09:50 | W.PN.HOSP.TC ---
Today's Communication/Plan
-
Recommended 2 L of home oxygen by software qa system specialist.
Increased morphine to 15 mg dosage 12 hourly
Follow-up CBC, CMP
Assessment / Plan
Assessment / Plan
Assessment/Plan
49-year-old transgender F with past medical history of gallstone pancreatitis (cholecystectomy 2022), significant psoriatic arthritis on Humira 2 years ago (not taking because she lost her insurance) presented with abdominal pain. CT findings
consistent with metastatic gastrointestinal malignancy with circumferential encasing the GE junction and likely metastases to the liver and ribs. 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
#Unspecified GE junction neoplasm with metastases
- Presented with abdomen pain, weight loss; CT A/P with circumferential GE mass and signs of metastases to ribs and liver
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
- Tumor markers were sent out after arrival, CEA and AFP levels very high; oncology planning for OP PET/CT
- Continue with daily PPI prophylactically for now
- Follow-up pathology and plan for OP PET/CT
- CA 19-9 level high at 433
- IR biopsy of hepatic lesion requested -- the concern is the high AFP with hepatocellular carcinoma in the differential diagnosis -- liver biopsy took place on 02/01/25 -- follow-up on pathology results
- Hem/onc outpatient follow-up soon after discharge
- As of 02/04/25 -- patient is still having A LOT of pain -- started scheduled Oxycodone -- increased dose on 02/05/25 based on previous 24 hours use of breakthrough medications
- Patient had some hypoxia overnight, see below, could be related to not moving much due to pain, as well as new narcotic pain meds -- will keep current dose of Oxycodone as patient's pain is improving
very slowly
- S/p EGD on 01/29/25 with large, fungating and ulcerated mass concerning for GE junction cancer (Siewert type II lesion). S/p biopsies and biliary stent removed. Reviewed EGD findings at bedside this AM and based on EGD and prior imaging, highly
concerning for malignancy. Ultimately, defer to Oncology for further evaluation while awaiting for path results. For now, recommend ongoing supportive care with PPI BiD and anti-emetics for nausea.
#Transient Hypoxia 02/05/25 to 02/06/25 overnight
-Could be related to not moving much due to pain, as well as new narcotic pain meds -- will keep current dose of Oxycodone as patient's pain is improving very slowly
-CXR with pleural effusion -- small
-Spoke w/ pulmonary, just do incentive spirometry atelectasis
-Follow-up 2 view CXR tomorrow
- On 02/06 software qa system specialist consulted for transient hypoxemia noted overnight when she was sleeping the saturation was around mid 80s which responded well with supplemental oxygen currently she is on 2 L of nasal cannula. Stat ABG was unremarkable,
chest x-ray performed showed small left-sided pleural effusion, atelectasis. She is currently refused to discharge until pain is less than 6 out of 10.
-Vitals: BP 133/86, pulse rate 100, RR 16, temp 98.7, O2 sat 93 with 2 L
-WBC: 15.9--17.2 high, hemoglobin- 8--8.2--8.2
-ABG pH 7.49 high, HCO3 28.2 high, ABG O2 saturation 99.2--metabolic alkalosis, respiratory alkalosis mixed.
#Euvolemic hypotonic hyponatremia
- Suspect polydipsia on CLD, though cannot rule out SIADH with underlying malignancy
- Does not seem overly hypovolemic despite limited intake on CLD
- Sodium 134 on arrival, now stable around 130; serum osm 273
- Urine osmolality and urine sodium support SIADH
- 48 ounce dietary fluid restriction
- Recheck BMP
-Remains on 2 L, no new complaints-Will obtain home O2 eval recommended by software qa system specialist.
#Anemia of chronic disease
#Thrombocytosis
#Leukocytosis
- Suspect both of these are reactive to underlying metastatic disease
- Iron studies with elevated ferritin and low TIBC; Hgb down trended with IVF
- Also has a significant reactive thrombocytosis with platelets between 800-1000
- Consider hydroxyurea for thrombocytosis, defer to oncology
- Continue to trend CBC with differential
#Sinus Tachycardia
- Likely physiologically driven by pain and anxiety from hospitalization
- Initial concern for PE though CTA PE protocol negative for emboli
- Improving with IV fluids and analgesia
- Continue on telemetry
#Urinary retention (?)
- Mentions that she has had episodes where it takes her a while to void
- Renal function stable, has been able to void after waiting periods of time
- Continue bladder scan protocol with straight cath as needed
- Likely from BPH along with narcotic pain meds and comorbidities; appreciate urology
- Start Flomax on 02/02/25
- [place] catheter voiding trial on 02/03/25 -- passed it, continues to void well
#Psoriatic arthritis
- Has known diagnosis for which she previously took Humira
- No longer on Humira since losing health insurance 2 years ago
- No signs of acute flare at this time
#Worsening Back Pain
-Patient has had chronic back pain for the past 6 to 12 months, attributed to arthritis
-Given suspected cancer, and worsened upper and lower back pain, checked MRI T and L spine for any metastases or spinal cord issues -- but those were not present
-Pain control as above
#H/O cholecystitis C/B gallstone pancreatitis s/p cholecystectomy
#H/O CBD stent s/p removal on 01/28/2025
#Severe Protein Calorie Malnutrition
DVT: Subq Lovenox
Code: Full
Dispo: Home with home health when medically stable
She is currently refused to discharge until pain is less than 6 out of 10.
Anticipated Discharge: Within 24 hours
Subjective/Interval History
-
Date of Service: February 07, 2025
Overnight she has concern for 10/24 although over her spine, abdomen constant pain with currently on oxycodone 10--15 mg, Dilaudid 2 mg every 6 H as needed, acetaminophen 1000 mg 8 hourly. Her last bowel movement 5 days ago and she is currently
having liquid diets includes [employer].
Objective Data
-
Vital Signs:
Vital Signs
Temp Pulse Resp BP Pulse Ox
98.7 F 100 16 133/86 93
02/07/25 07:25 02/07/25 07:25 02/07/25 07:25 02/07/25 07:25 02/07/25 07:25
I&O
02/06/25 02/07/25 02/08/25
06:59 06:59 06:59
Intake Total 590 / 590 860 / 860
Balance 590 / 590 860 / 860
Physical Exam
-
General: Pain (10/24)
HEENT: Normocephalic, Moist Mucous Membranes, Oxygen (2 L of nasal) and Other (Scleral icteric)
Respiratory: Clear to Auscultation
Cardiac: Regular Rhythm and S1/S2
GI: Soft, Nontender and Nondistended
Genito-urinary: No Costovertebral Tender
Musculoskeletal: No Clubbing
Skin: Warm
Neuro: AO x 3
Hematologic / Lymphatic: No Lymphadenopathy
Psych: Calm
--- NOTE | 2025-02-07 12:05 | W.PN.ONC2 ---
Addendum entered and electronically signed by Mony Simmons MD 02/07/25 21:38:
Case d/w Dr. Mason, [facility]. Recommends FOLFOX as per usual management of metastatic gastric.
Addendum entered and electronically signed by Mony Simmons MD 02/07/25 12:29:
Will likely need treatment at outpt infusion due to lack of insurance.
HER2 0 - 1+, MMR and PD-L1 ordered.
Original Note:
Today's Communication / Plan
-
Discussed path with pt.
Suggest:
- add MS Contin at lowest dose
- continue PO dilaudid for breakthrough pain
- D/C oxycodone, does not need two short-acting opiates
- outpt medical marijuana cert
- add dexamethasone 4 PO BID for liver pain
- port placement JUAN may need to do inpt depending on insurance situation
- needs to start treatment sooner than later, will have
- curbside text sent to [facility] provider for input regarding treatment regimen, but favor cisplatin/5-FU as cis has activity in germ cell tumors. Add Herceptin, Keytruda depending on IHC still pending.
- await HER2, MMR, PD-L1
- might need J-tube for feeding if not taking PO's, c/o constant nausea
- Add Reglan for possible component of opiate induced nausea
[place] to start sooner than later given ongoing pain symptoms and aggressive histology.
Impression
Impression
Abnormal CT findings: innumerable liver lesion with mild hepatomegaly, GEJ wall thickening with adjacent lymphadenopathy, expansile lesion in the right anterior 9th rib
Chronic leukocytosis
Anemia of inflammation
Thrombocytosis
Elevated LFTs
Marked elevations in AFP, CA 19-9, CEA
Anemia
Cancer-related pain
Plan
Plan
Case discussed this morning with pathology. 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 The SAL4 marker is indicative of differentiation. These tumors generally behave aggressively.
Needs better pain control so he can get out of the hospital and start treatment
Subjective/Objective
Chief Complaint
Heme?onc follow up of abdominal pain from liver metastases and R anterior rib met in setting of esophagogastric mass
Subjective
c/o poorly controlled pain RUQ and shoulder. The pain response to Dilaudid. Not getting much relief from OxyContin.
Vital Signs:
Vital Signs
Temp Pulse Resp BP Pulse Ox
98.2 F 106 18 131/90 96
02/07/25 11:05 02/07/25 11:05 02/07/25 11:05 02/07/25 11:05 02/07/25 11:05
Lab Results:
Laboratory Data
WBC 17.2 10^3/uL (4.8-10.8) H 02/05/25 06:20
Hgb 8.2 g/dL (13.0-18.0) L 02/05/25 06:20
Plt Count 727 10^3/uL (130-400) H 02/05/25 06:20
PT 15.5 Sec (11.4-14.6) H 01/28/25 09:14
INR 1.20 01/28/25 09:14
eGFR > 60.00 02/05/25 06:20
Physical Exam
Awake, alert, interactive, pale
HEENT: Moist Mucous Membranes; No Jaundice
Cardiology: Normal Sinus Rhythm, S1 and S2
Pulmonary: Clear; No Wheezes
GI: Soft
Extremities: No C/C/E
Neuro: Non Focal
[2025-02-07] MEDS: DECADRON 4 MG PO ×2 (13:14→20:09)
--- NOTE | 2025-02-07 13:22 | PTCARENOTE ---
Patient with no BM documented in 6 days, denies feeling constipated but endorses poor appetite, on full liquid diet throughout admission until it was advanced this AM to pureed per MD. Ordered Miralax daily and administered as scheduled - see MAY.
MD and resident made aware, stated will add senna to regimen, no new orders at this time.
[2025-02-07] MEDS: REGLAN 5 MG PO ×2 (15:35→21:10)
[2025-02-07] MEDS: SENOKOT-S 1 TABLET PO (15:40)
[2025-02-07] MEDS: LOVENOX 40 MG SC (17:22)
[2025-02-07] MEDS: MS CONTIN (EXTENDED RELEASE) 15 MG PO (20:09)
[2025-02-08] VITALS (7 sets, daily range): BP systolic 122–149; BP diastolic 81–90; PULSE 70; O2SAT 94; BMI 26.7
[2025-02-08] MEDS: ZOFRAN 4 MG IV (03:27)
[2025-02-08] MEDS: DILAUDID 2 MG PO ×2 (03:34→11:58)
[2025-02-08 06:27] LABS: Hematocrit 23.5 % (39.0-52.0); Hemoglobin 7.8 g/dL (13.0-18.0); Mean Corp Hgb Conc. 33.2 g/dL (33.0-37.0); Mean Corpuscular Volume 83.6 fL (80.0-94.0); Platelet Count 671 10^3/uL (130-400); Red Cell Dist. Width 16.9 % (11.5-14.5)
--- NOTE | 2025-02-08 07:07 | W.PN.HOSP.TC ---
Today's Communication/Plan
-
CMP, CBC
division human resources manager follow-up for her future treatment however she does not have insurance.
Oncologist, hospitalist aware of the situation.
Assessment / Plan
Assessment / Plan
Assessment/Plan
49-year-old transgender F with past medical history of gallstone pancreatitis (cholecystectomy 2022), significant psoriatic arthritis on Humira 2 years ago (not taking because she lost her insurance) presented with abdominal pain. CT findings
consistent with metastatic gastrointestinal malignancy with circumferential encasing the GE junction and likely metastases to the liver and ribs. 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
Oncologist recommended to add MS Contin at lowest (morphine sulfate extended release tablets), to continue p.o. Dilaudid for breakthrough pain, requested to discontinue oxycodone.
patient needs pathology reports hard copy for her family.
- add MS Contin at lowest dose
- continue PO dilaudid for breakthrough pain
- D/C oxycodone, does not need two short-acting opiates
- outpt medical marijuana cert
- add dexamethasone 4 PO BID for liver pain
- port placement JUAN may need to do inpt depending on insurance situation
- needs to start treatment sooner than later, will have
- curbside text sent to [facility] provider for input regarding treatment regimen, but favor cisplatin/5-FU as cis has activity in germ cell tumors. Add Herceptin, Keytruda depending on IHC still pending.
- await HER2, MMR, PD-L1
- might need J-tube for feeding if not taking PO's, c/o constant nausea
- Add Reglan for possible component of opiate induced nausea.
[facility] consulted and they can do both placement however prefer to do as outpatient due to high ear infection treatment placed in inpatient's, and asked for the date for starting her treatment, however the patient has no insurance which was confirmed
by social media editor, and oncologist aware of the situation.

---
#Unspecified GE junction neoplasm with metastases
- Presented with abdomen pain, weight loss; CT A/P with circumferential GE mass and signs of metastases to ribs and liver
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
- Tumor markers were sent out after arrival, CEA and AFP levels very high; oncology planning for OP PET/CT
- Continue with daily PPI prophylactically for now
- Follow-up pathology and plan for OP PET/CT
- CA 19-9 level high at 433
- IR biopsy of hepatic lesion requested -- the concern is the high AFP with hepatocellular carcinoma in the differential diagnosis -- liver biopsy took place on 02/01/25 -- follow-up on pathology results
- Hem/onc outpatient follow-up soon after discharge
- As of 02/04/25 -- patient is still having A LOT of pain -- started scheduled Oxycodone -- increased dose on 02/05/25 based on previous 24 hours use of breakthrough medications
- Patient had some hypoxia overnight, see below, could be related to not moving much due to pain, as well as new narcotic pain meds -- will keep current dose of Oxycodone as patient's pain is improving
very slowly
- S/p EGD on 01/29/25 with large, fungating and ulcerated mass concerning for GE junction cancer (Siewert type II lesion). S/p biopsies and biliary stent removed. Reviewed EGD findings at bedside this AM and based on EGD and prior imaging, highly
concerning for malignancy. Ultimately, defer to Oncology for further evaluation while awaiting for path results. For now, recommend ongoing supportive care with PPI BiD and anti-emetics for nausea.
#Transient Hypoxia 02/05/25 to 02/06/25 overnight
-Could be related to not moving much due to pain, as well as new narcotic pain meds -- will keep current dose of Oxycodone as patient's pain is improving very slowly
-CXR with pleural effusion -- small
-Spoke w/ pulmonary, just do incentive spirometry atelectasis
-Follow-up 2 view CXR tomorrow
- On 02/06 communication skills instructor consulted for transient hypoxemia noted overnight when she was sleeping the saturation was around mid 80s which responded well with supplemental oxygen currently she is on 2 L of nasal cannula. Stat ABG was unremarkable,
chest x-ray performed showed small left-sided pleural effusion, atelectasis. She is currently refused to discharge until pain is less than 6 out of 10.
-Vitals: BP 133/86, pulse rate 100, RR 16, temp 98.7, O2 sat 93 with 2 L
-WBC: 15.9--17.2 high, hemoglobin- 8--8.2--8.2
-ABG pH 7.49 high, HCO3 28.2 high, ABG O2 saturation 99.2--metabolic alkalosis, respiratory alkalosis mixed.
#Euvolemic hypotonic hyponatremia
- Suspect polydipsia on CLD, though cannot rule out SIADH with underlying malignancy
- Does not seem overly hypovolemic despite limited intake on CLD
- Sodium 134 on arrival, now stable around 130; serum osm 273
- Urine osmolality and urine sodium support SIADH
- 48 ounce dietary fluid restriction
- Recheck BMP
#Anemia of chronic disease
#Thrombocytosis
#Leukocytosis
- Suspect both of these are reactive to underlying metastatic disease
- Iron studies with elevated ferritin and low TIBC; Hgb down trended with IVF
- Also has a significant reactive thrombocytosis with platelets between 800-1000
- Consider hydroxyurea for thrombocytosis, defer to oncology
- Continue to trend CBC with differential
#Sinus Tachycardia
- Likely physiologically driven by pain and anxiety from hospitalization
- Initial concern for PE though CTA PE protocol negative for emboli
- Improving with IV fluids and analgesia
- Continue on telemetry
#Urinary retention (?)
- Mentions that she has had episodes where it takes her a while to void
- Renal function stable, has been able to void after waiting periods of time
- Continue bladder scan protocol with straight cath as needed
- Likely from BPH along with narcotic pain meds and comorbidities; appreciate urology
- Start Flomax on 02/02/25
- [place] catheter voiding trial on 02/03/25 -- passed it, continues to void well
#Psoriatic arthritis
- Has known diagnosis for which she previously took Humira
- No longer on Humira since losing health insurance 2 years ago
- No signs of acute flare at this time
#Worsening Back Pain
-Patient has had chronic back pain for the past 6 to 12 months, attributed to arthritis
-Given suspected cancer, and worsened upper and lower back pain, checked MRI T and L spine for any metastases or spinal cord issues -- but those were not present
-Pain control as above
#H/O cholecystitis C/B gallstone pancreatitis s/p cholecystectomy
#H/O CBD stent s/p removal on 01/28/2025
#Severe Protein Calorie Malnutrition
Diet: As tolerated with fluid restriction of 50 ounces.
DVT: Subq Lovenox,
Code: Full
Dispo: Home with home health when medically stable
She is currently refused to discharge until pain is less than 6 out of 10.
Anticipated Discharge: Within 24 hours
Subjective/Interval History
-
Date of Service: February 08, 2025
Overnight patient has pain which did not decrease even after increasing the morphine dosage from 10 to 15 mg yesterday by oncologist. However she denies chest pain, palpitation, dizziness, shortness of breath, abdominal pain. Bowel movement she
didn't had since last Friday.
Objective Data
-
Labs:
Laboratory Results
02/08/25
05:42
WBC 17.7 H
Hgb 7.8 L
Hct 23.5 L
Plt Count 671 H
Sodium Pending
Potassium Pending
Chloride Pending
Carbon Dioxide Pending
BUN Pending
Creatinine Pending
Glucose Pending
Calcium Pending
Total Bilirubin Pending
AST Pending
ALT Pending
Alkaline Phosphatase Pending
Vital Signs:
Vital Signs
Temp Pulse Resp BP Pulse Ox
97.4 F 71 18 122/81 95
02/08/25 03:05 02/08/25 03:05 02/08/25 03:05 02/08/25 03:05 02/08/25 03:05
I&O
02/07/25 02/08/25 02/09/25
06:59 06:59 06:59
Intake Total 860 / 860 1440 / 1440
Balance 860 / 860 1440 / 1440
Review of Systems
-
History Source: Patient
All other systems: Reviewed and negative
Physical Exam
-
General: Pain (10/24 )
HEENT: Oxygen (94% at room air )
Respiratory: Clear to Auscultation
Cardiac: Regular Rhythm and S1/S2
Genito-urinary: No Costovertebral Tender
Musculoskeletal: No Clubbing and No Edema
Skin: Warm
Neuro: AO x 3
Hematologic / Lymphatic: No Lymphadenopathy
Psych: Calm
[2025-02-08 07:09] LABS: ALT (SGPT) 51 U/L (0-50); AST (SGOT) 136 U/L (17-59); Albumin 2.3 g/dl (3.5-5.0); Alkaline Phosphatase 522 U/L (38-126); Blood Urea Nitrogen 13 mg/dl (9-20); Calcium 8.2 mg/dl (8.4-10.2); Carbon Dioxide 32 mmol/L (22-30); Chloride 95 mmol/L (98-107); Estimated Creatinine Clearance > 125 ml/min; Glucose 156 mg/dl (70-99); Potassium 4.4 mmol/L (3.5-5.1); Sodium 129 mmol/L (135-145); Total Protein 5.8 g/dl (6.3-8.2); eGFR > 60.00
[2025-02-08] MEDS: DECADRON 4 MG PO ×2 (08:00→20:02)
[2025-02-08] MEDS: MS CONTIN (EXTENDED RELEASE) 15 MG PO ×2 (08:00→20:02)
[2025-02-08] MEDS: FLOMAX 0.4 MG PO (08:00)
[2025-02-08] MEDS: NSS (PRESERVATIVE FREE) 10 ML IV (08:00)
[2025-02-08] MEDS: PROTONIX IV 40 MG IV (08:00)
[2025-02-08] MEDS: TYLENOL 1000 MG PO ×3 (08:00→23:05)
[2025-02-08] MEDS: VITAMIN B1 100 MG PO ×2 (08:00→20:02)
[2025-02-08] MEDS: REGLAN 5 MG PO ×4 (08:00→21:13)
[2025-02-08] MEDS: MIRALAX 17 GRAMS PO (08:00)
--- NOTE | 2025-02-08 09:24 | W.PN.PUL3 ---
Today's Communication / Plan
-
Stable on RA, no new complaints, ambulating sat 93-94%
CXR with stable small effusion, no intervention needed
She notes ongoing chronic pain, defer to team for further management
No further recs from our standpoint, OP FU can be arranged
We will sign off at this time, pls call with questions
Assessment
-
49-year-old transgender patient presented to the hospital on 01/28 with chief complaint of abdominal pain. Further workup included a CT abdomen pelvis which was concerning for multiple hepatic lesions, likely metastasis. CT chest was also pursued
which was negative for any pulmonary embolism however reported circumferential thickening at GE junction highly suspicious for esophageal mass. Patient was subsequently evaluated by oncology and GI service. Patient had endoscopy performed with
biopsies. In addition, IR guided liver mass biopsies were obtained. Results are currently pending.
02/06, pulmonary service was consulted for transient hypoxemia noted overnight. Patient was sleeping and was noted to have oxygen saturation in mid 80s, which responded well to supplemental oxygen. Patient denies any cough, shortness of breath,
pleuritic discomfort, orthopnea, PND or hemoptysis. During my evaluation, patient was saturating well and 94% on room air and asymptomatic from pulmonary standpoint. Stat ABG was performed which was unremarkable. Chest x-ray was performed which
was suggestive of small left-sided pleural effusion and some atelectasis. Pulmonary consultation was requested for further input.
Hypoxia, transient-resolved
Likely postop atelectasis
Trace pleural effusion
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
Other medical diagnoses:
Prior history of gallstone pancreatitis in 2022, status postcholecystectomy
Psoriatic arthritis, had been on Humira in the past
H/o Childhood asthma. Asymptomatic since teen years
H/o Smoking. Brief smoking history during college, none since
Depression
Transgender- identifies as female
Pt seeing therapist and bed laborer in [place] that specialize in transgender cases.
On estrogen therapy, plans to make full transition in the distant future.
Plan
No prior known history of pulmonary disease. Patient had childhood asthma which she grew out of during teen years. Smoked very briefly during her college time. No occupational exposure reported. At baseline has not been on any inhalers.
02/06, pulmonary consulted for transient hypoxemia overnight requiring 2 L. During my evaluation patient was on room air saturating 94%
- Suspect hypoxia during physiological hypoventilation while sleeping, in the setting of trace pleural effusions and narcotic use. Cannot rule out underlying sleep disordered breathing
- ABG 7.49/37/94 on room air. Patient asymptomatic from pulmonary standpoint. No cough, dyspnea, pleuritic discomfort, shortness of breath reported
- Continue to monitor saturations, target SpO2 more than 90%
- Minimize sedating medications particularly opiates
- Patient can benefit from outpatient sleep study for further evaluation
- Patient had negative CT for pulmonary embolism on 01/28/2025, lately has been on DVT prophylaxis with subcu Lovenox making acute PE less likely.
- Start incentive spirometry to help with bibasilar atelectasis
Now stable on RA, ambulating sat 93%--no need w/ exertion
Effusion- Suspect in the setting of hypoalbuminemia, serum albumin 2.3
- BNP is normal at 109. Trace pedal edema on exam. Patient had a CT chest performed about 9 days ago which showed essentially clear lungs without evidence of metastasis or pulmonary embolism.
- Lasix 20 mg x 1 today
- Follow-up chest x-ray two-view for better evaluation in a.m.--thus far demonstrating very low lung volumes
Likely atelectasis, encouraged IS/ambulation
- Currently effusions are fairly small, unlikely to be symptomatic and are not large enough for safe thoracentesis
- Avoid additional IV fluids, monitor input and output closely, follow-up on imaging
Repeat CXR stable
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
- s/p EGD with biopsy and IR guided liver lesion biopsy
- Oncology and GI service on case, await final results
DVT prophylaxis with subcu Lovenox
PT/OT, OOB
Discharge planning per team pending medical management of lesions
Data:
CXR 01/2025: 1. Low inspiratory volumes.
2. Haziness of each hemidiaphragm, which may represent bibasilar subsegmental atelectasis or pneumonia.
3. Small left pleural effusion is suspected. Consider PA and lateral views when possible.
CT Chest 01/2025: 1. No evidence of pulmonary embolism or thoracic aortic dissection.
2. Clear lungs.
3. Hepatic metastasis. Suspected distal esophageal cancer (please see recent CT abdomen and pelvis).
CT A/P 01/2025: 1. Innumerable hepatic metastases. Mild hepatic enlargement.
2. Bowel wall thickening at the gastroesophageal junction, likely reflective of esophageal carcinoma.
3. Enlarged lymph nodes near the gastroesophageal junction, measuring up to 1.2 cm in diameter.
4. Expansile metastasis within the right anterior ninth rib, measuring 5.8 cm in greatest dimension.
Total time spent on this consultation/encounter __40__ minutes which includes review of history, physical exam, medications, laboratory data, personal review of imaging, extensive review of outpatient records, discussion with care team and
respiratory therapy.
Subjective Data
-
Date of Service:
Date of Service: February 08, 2025
Chief Complaint: Pulmonary Follow Up
Subjective:
No new complaints with SOB, stable on RA
Still having chronic pain, reports 10/24
Objective Data
Data Reviewed
Vital Signs / I&O / Oxygen:
Vital Signs
Temp Pulse Resp BP Pulse Ox
97.9 F 78 18 125/82 94
02/08/25 08:44 02/08/25 08:44 02/08/25 08:44 02/08/25 08:44 02/08/25 08:44
Intake and Output
02/07/25 02/08/25 02/09/25
06:59 06:59 06:59
Intake Total 860 / 860 1440 / 1440
Balance 860 / 860 1440 / 1440
SaO2 94
Nasal Cannula flow liters per 2
minute
Physical Exam
General: Comfortable and Other (NAD)
HEENT: Normocephalic, Anicteric and Moist Mucous Membranes
Cardiovascular: S1-S2 and Regular Rhythm
Respiratory: Clear and Non-Labored Respirations
GI: Soft, Non Distended and Non Tender
Neurology: Awake, Alert, Oriented and No Motor Deficits
Skin: Warm, Dry and Good Color
Labs/Micro/Reports
Lab Data
02/08/25 05:42
02/08/25 05:42
--- NOTE | 2025-02-08 12:51 | W.PN.ONC ---
Today's Communication / Plan
-
Pain mgmt - MS Contin was started 11 pm - would titrate dose [id number] as needed. Continue short acting opioids.
MMR, PDL1 pending on path, may allow for immunotherapy w/ FOLFOX
Will also request Her2 testing
I asked Sandra De La Paz, [facility] social services assistant, to meet with patient
Treatment to begin as soon as possible
Impression
Impression
metastatic gastric cancer, MMR pending
Abnormal CT findings: innumerable liver lesion with mild hepatomegaly, GEJ wall thickening with adjacent lymphadenopathy, expansile lesion in the right anterior 9th rib
Chronic leukocytosis
Anemia of inflammation
Thrombocytosis
Elevated LFTs
Marked elevations in AFP, CA 19-9, CEA
Anemia
Cancer-related pain
Plan
Plan
Pain mgmt - MS Contin was started 11 pm - would titrate dose [id number] as needed. Continue short acting opioids.
MMR, PDL1 pending on path, may allow for immunotherapy w/ FOLFOX
Will also request Her2 testing
I asked Sandra De La Paz, [facility] social services assistant, to meet with patient
Treatment to begin as soon as possible
Subjective/Objective
Subjective/Objective
Still with pain, started MS Contin last night. IV pain meds help better than po.
Vital Signs:
Vital Signs
Temp Pulse Resp BP Pulse Ox
97.2 F 75 20 133/84 95
02/08/25 11:34 02/08/25 11:34 02/08/25 11:34 02/08/25 11:34 02/08/25 11:34
Lab Results:
Laboratory Data
WBC 17.7 10^3/uL (4.8-10.8) H 02/08/25 05:42
Hgb 7.8 g/dL (13.0-18.0) L 02/08/25 05:42
Plt Count 671 10^3/uL (130-400) H 02/08/25 05:42
PT 15.5 Sec (11.4-14.6) H 01/28/25 09:14
INR 1.20 01/28/25 09:14
eGFR > 60.00 02/08/25 05:42
--- NOTE | 2025-02-08 12:54 | CM ---
Patient seen at bedside on . Patient recommendation per therapy is for home PT. CM called to [facility] and per liaison patient needs to provide bank statement and other documentation before she can apply for [facility]. Patient plan is for discharge home
with family and would benefit from home PT/OT per therapy notes. CM will continue to follow for discharge planning needs.
Plan; home with VN; follow up with [facility]
[2025-02-08] MEDS: LOVENOX 40 MG SC (17:07)
[2025-02-09] MEDS: ZOFRAN 4 MG IV (02:18)
[2025-02-09 03:07] VITALS: BP 148/89
[2025-02-09 04:12] VITALS: BMI 26.3
[2025-02-09] MEDS: DILAUDID 2 MG PO ×2 (05:34→12:27)
--- NOTE | 2025-02-09 07:04 | W.PN.HOSP.TC ---
Today's Communication/Plan
-
Morphine 15 mg increased to 30 mg 12 hourly.
Assessment / Plan
Assessment / Plan
Assessment/Plan
49-year-old transgender F with past medical history of gallstone pancreatitis (cholecystectomy 2022), significant psoriatic arthritis on Humira 2 years ago (not taking because she lost her insurance) presented with abdominal pain. CT findings
consistent with metastatic gastrointestinal malignancy with circumferential encasing the GE junction and likely metastases to the liver and ribs. 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
Oncologist recommended to add MS Contin at lowest (morphine sulfate extended release tablets), to continue p.o. Dilaudid for breakthrough pain, requested to discontinue oxycodone.
patient needs pathology reports hard copy for her family.
- add MS Contin at lowest dose
- continue PO dilaudid for breakthrough pain
- D/C oxycodone, does not need two short-acting opiates
- outpt medical marijuana cert
- add dexamethasone 4 PO BID for liver pain
- port placement JUAN may need to do inpt depending on insurance situation
- needs to start treatment sooner than later, will have
- curbside text sent to [facility] provider for input regarding treatment regimen, but favor cisplatin/5-FU as cis has activity in germ cell tumors. Add Herceptin, Keytruda depending on IHC still pending.
- await HER2, MMR, PD-L1
- might need J-tube for feeding if not taking PO's, c/o constant nausea
- Add Reglan for possible component of opiate induced nausea.
[facility] consulted and they can do both placement however prefer to do as outpatient due to high ear infection treatment placed in inpatient's, and asked for the date for starting her treatment, however the patient has no insurance which was confirmed
by social insurance administrator, and oncologist aware of the situation.

---
#Unspecified GE junction neoplasm with metastases
- Presented with abdomen pain, weight loss; CT A/P with circumferential GE mass and signs of metastases to ribs and liver
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
- Tumor markers were sent out after arrival, CEA and AFP levels very high; oncology planning for OP PET/CT
- Continue with daily PPI prophylactically for now
- Follow-up pathology and plan for OP PET/CT
- CA 19-9 level high at 433
- IR biopsy of hepatic lesion requested -- the concern is the high AFP with hepatocellular carcinoma in the differential diagnosis -- liver biopsy took place on 02/01/25 -- follow-up on pathology results
- Hem/onc outpatient follow-up soon after discharge
- As of 02/04/25 -- patient is still having A LOT of pain -- started scheduled Oxycodone -- increased dose on 02/05/25 based on previous 24 hours use of breakthrough medications
- Patient had some hypoxia overnight, see below, could be related to not moving much due to pain, as well as new narcotic pain meds -- will keep current dose of Oxycodone as patient's pain is improving
very slowly
- S/p EGD on 01/29/25 with large, fungating and ulcerated mass concerning for GE junction cancer (Siewert type II lesion). S/p biopsies and biliary stent removed. Reviewed EGD findings at bedside this AM and based on EGD and prior imaging, highly
concerning for malignancy. Ultimately, defer to Oncology for further evaluation while awaiting for path results. For now, recommend ongoing supportive care with PPI BiD and anti-emetics for nausea.
#Transient Hypoxia 02/05/25 to 02/06/25 overnight
-Could be related to not moving much due to pain, as well as new narcotic pain meds -- will keep current dose of Oxycodone as patient's pain is improving very slowly
-CXR with pleural effusion -- small
-Spoke w/ pulmonary, just do incentive spirometry atelectasis
-Follow-up 2 view CXR tomorrow
- On 02/06 rug weaver consulted for transient hypoxemia noted overnight when she was sleeping the saturation was around mid 80s which responded well with supplemental oxygen currently she is on 2 L of nasal cannula. Stat ABG was unremarkable,
chest x-ray performed showed small left-sided pleural effusion, atelectasis. She is currently refused to discharge until pain is less than 6 out of 10.
-Vitals: BP 133/86, pulse rate 100, RR 16, temp 98.7, O2 sat 93 with 2 L
-WBC: 15.9--17.2 high, hemoglobin- 8--8.2--8.2
-ABG pH 7.49 high, HCO3 28.2 high, ABG O2 saturation 99.2--metabolic alkalosis, respiratory alkalosis mixed.
#Euvolemic hypotonic hyponatremia
- Suspect polydipsia on CLD, though cannot rule out SIADH with underlying malignancy
- Does not seem overly hypovolemic despite limited intake on CLD
- Sodium 134 on arrival, now stable around 130; serum osm 273
- Urine osmolality and urine sodium support SIADH
- 48 ounce dietary fluid restriction
- Recheck BMP
#Anemia of chronic disease
#Thrombocytosis
#Leukocytosis
- Suspect both of these are reactive to underlying metastatic disease
- Iron studies with elevated ferritin and low TIBC; Hgb down trended with IVF
- Also has a significant reactive thrombocytosis with platelets between 800-1000
- Consider hydroxyurea for thrombocytosis, defer to oncology
- Continue to trend CBC with differential
#Sinus Tachycardia
- Likely physiologically driven by pain and anxiety from hospitalization
- Initial concern for PE though CTA PE protocol negative for emboli
- Improving with IV fluids and analgesia
- Continue on telemetry
#Urinary retention (?)
- Mentions that she has had episodes where it takes her a while to void
- Renal function stable, has been able to void after waiting periods of time
- Continue bladder scan protocol with straight cath as needed
- Likely from BPH along with narcotic pain meds and comorbidities; appreciate urology
- Start Flomax on 02/02/25
- [place] catheter voiding trial on 02/03/25 -- passed it, continues to void well
#Psoriatic arthritis
- Has known diagnosis for which she previously took Humira
- No longer on Humira since losing health insurance 2 years ago
- No signs of acute flare at this time
#Worsening Back Pain
-Patient has had chronic back pain for the past 6 to 12 months, attributed to arthritis
-Given suspected cancer, and worsened upper and lower back pain, checked MRI T and L spine for any metastases or spinal cord issues -- but those were not present
-Pain control as above
#H/O cholecystitis C/B gallstone pancreatitis s/p cholecystectomy
#H/O CBD stent s/p removal on 01/28/2025
#Severe Protein Calorie Malnutrition
Diet: As tolerated with fluid restriction of 50 ounces.
DVT: Subq Lovenox,
Code: Full
Dispo: Home with home health when medically stable
She is currently refused to discharge until pain is less than 6 out of 10.
plan: Patient wants to stay 1 more day and will see as her pain improving discharge postponed for tomorrow.
Anticipated Discharge: Within 24 hours
Subjective/Interval History
-
Date of Service: February 09, 2025
Overnight she had a bowel movement and experienced about to blackout, while on bowel movement she experienced moderate pain at upper abdomen. Denied fever, chills, chest pain, palpitation, dizziness.
While on prerounds explained to the patient regards her plan of oncologist JUAN to start the treatment for given gastric adenocarcinoma, radiologist agreed for port placement depending on her treatment day as an outpatient, however inquired with
business case analyst yesterday and found out that she does not have insurance and she has to submit the paperwork's to start the process for her treatment. Explained all the details to the patient and she is aware of the situation.
Objective Data
-
Labs:
Laboratory Results
02/09/25
06:00
WBC Pending
Hgb Pending
Hct Pending
Plt Count Pending
Sodium Pending
Potassium Pending
Chloride Pending
Carbon Dioxide Pending
BUN Pending
Creatinine Pending
Glucose Pending
Calcium Pending
Total Bilirubin Pending
AST Pending
ALT Pending
Alkaline Phosphatase Pending
Vital Signs:
Vital Signs
Temp Pulse Resp BP Pulse Ox
98.2 F 68 18 148/89 90
02/09/25 03:07 02/09/25 03:07 02/09/25 03:07 02/09/25 03:07 02/09/25 06:03
I&O
02/08/25 02/09/25 02/10/25
06:59 06:59 06:59
Intake Total 1440 / 1440 480 / 480
Balance 1440 / 1440 480 / 480
Review of Systems
-
History Source: Patient
All other systems: Reviewed and negative
Physical Exam
-
General: Well Nourished
HEENT: Other (Pale)
Respiratory: Clear to Auscultation
Cardiac: Regular Rhythm and S1/S2
GI: Soft, Nondistended, Normal Bowel Sounds and Tender
Rectal: Hem Negative
Genito-urinary: No Costovertebral Tender
Neuro: AO x 3
Psych: Calm
[2025-02-09 07:13] VITALS: BP 149/85
[2025-02-09 07:45] LABS: Hematocrit 25.9 % (39.0-52.0); Hemoglobin 8.4 g/dL (13.0-18.0); Mean Corp Hgb Conc. 32.4 g/dL (33.0-37.0); Mean Corpuscular Volume 82.7 fL (80.0-94.0); Platelet Count 748 10^3/uL (130-400); Red Cell Dist. Width 17.4 % (11.5-14.5)
[2025-02-09] MEDS: FLOMAX 0.4 MG PO (08:17)
[2025-02-09] MEDS: VITAMIN B1 100 MG PO ×2 (08:17→20:13)
[2025-02-09] MEDS: TYLENOL 1000 MG PO ×3 (08:17→23:51)
[2025-02-09] MEDS: DECADRON 4 MG PO ×2 (08:17→20:14)
[2025-02-09] MEDS: REGLAN 5 MG PO ×4 (08:17→21:39)
[2025-02-09] MEDS: MS CONTIN (EXTENDED RELEASE) 15 MG PO (08:17)
[2025-02-09] MEDS: PROTONIX IV 40 MG IV (08:17)
[2025-02-09] MEDS: NSS (PRESERVATIVE FREE) 10 ML IV (08:18)
[2025-02-09 08:25] LABS: ALT (SGPT) 75 U/L (0-50); AST (SGOT) 176 U/L (17-59); Albumin 2.5 g/dl (3.5-5.0); Alkaline Phosphatase 621 U/L (38-126); Blood Urea Nitrogen 14 mg/dl (9-20); Calcium 8.4 mg/dl (8.4-10.2); Carbon Dioxide 30 mmol/L (22-30); Chloride 97 mmol/L (98-107); Estimated Creatinine Clearance > 125 ml/min; Glucose 142 mg/dl (70-99); Potassium 4.3 mmol/L (3.5-5.1); Sodium 129 mmol/L (135-145); Total Protein 6.2 g/dl (6.3-8.2); eGFR > 60.00
[2025-02-09] MEDS: MIRALAX PO (08:26)
--- NOTE | 2025-02-09 09:33 | W.PN.ONC2 ---
Addendum entered and electronically signed by Satnam Crawley MD 02/09/25 10:10:
Pathology supplemental NexGen sequencing results are available. Patient has intact MMR proteins so does not appear to be a candidate for immunotherapy and has negative (1+) HER2/marva expression. So systemic treatment typically would be FOLFOX
without immunotherapy or Herceptin once social works out the insurance issues.
Original Note:
Today's Communication / Plan
-
Nothing new to add today although major case management issues are making scheduling chemotherapy which is typically done as an outpatient challenging.
Typically she would need FOLFOX chemotherapy and a Port-A-Cath insertion in preparation for treatment. We can add additional therapy such as immunotherapy or Herceptin depending on results of NexGen sequencing.
Ongoing conversations with case management as well as Sandra De La Paz in outpatient cancer center renal social worker to try and sort out what would be the most expeditious way to get patient plugged into start chemotherapy JUAN.
Impression
Impression
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
Abnormal CT findings: innumerable liver lesion with mild hepatomegaly, GEJ wall thickening with adjacent lymphadenopathy, expansile lesion in the right anterior 9th rib
Chronic leukocytosis
Anemia of inflammation
Thrombocytosis
Elevated LFTs
Marked elevations in AFP, CA 19-9, CEA
Anemia
Cancer-related pain
M>F transgender (she/her) female gender
Plan
Plan
Pain mgmt - MS Contin was started 02/07 pm - would titrate dose [id number] as needed. Continue short acting opioids.
MMR, PDL1 pending on path, may allow for immunotherapy w/ FOLFOX
Will also request Her2 testing
I asked Sandra De La Paz, cancer center renal social worker, to meet with patient
Treatment to begin as soon as possible
Subjective/Objective
Chief Complaint
ACS heme-onc follow-up
Subjective
Some dysphagia of solid foods but tolerating liquids. Patient is in an M>F transgender (she/her) female.
Vital Signs:
Vital Signs
Temp Pulse Resp BP Pulse Ox
97.9 F 74 16 149/85 95
02/09/25 07:13 02/09/25 07:13 02/09/25 07:13 02/09/25 07:13 02/09/25 07:13
Lab Results:
Laboratory Data
WBC 28.5 10^3/uL (4.8-10.8) H 02/09/25 07:33
Hgb 8.4 g/dL (13.0-18.0) L 02/09/25 07:33
Plt Count 748 10^3/uL (130-400) H 02/09/25 07:33
PT 15.5 Sec (11.4-14.6) H 01/28/25 09:14
INR 1.20 01/28/25 09:14
eGFR > 60.00 02/09/25 07:33
Laboratory Tests
01/28/25
09:14
Tumor Marker AFP 7100
Carcinoembryonic Ag 534
CA 19-9 Antigen 433 H
Physical Exam
Cardiology: S1 and S2
Pulmonary: Clear
GI: Soft
Extremities: No C/C/E
[2025-02-09 11:00] VITALS: BP 142/91
--- NOTE | 2025-02-09 14:04 | CM ---
CM following re: discharge planing.
Reviewed pt's chart, met with pt.
CO has a long discussion with Medicaid specialist Gaby regarding pt's poor participation in medicaid application process and pt will need outpatient chemotherapy.
CM had a long discussion with the pt and she confirmed that her sister and her ex will come today at 10:30 am and they will help with Medicaid application process and they will bring all necessary documentation.
Medicaid specialist met with pt and her family and she just confirmed that pt's family brought all necessary paperwork and she will submit to the State with a request for expedite review and pt most likely will get Medicaid insurance be next week.
Per Gaby she will follow up with the pt after the discharge.
Pt has an application to apply for services at [facility].
D/C plan: home with family and follow up with Medicaid specialist regarding medicaid insurance process.
[2025-02-09 15:00] VITALS: BP 154/93
--- NOTE | 2025-02-09 15:37 | PTCARENOTE ---
Resident doctor at bedside to update patient on plan of care and discharge. Patient reporting her pain is not managed and refusing discharge today. Much emotional support provided to patient. Per discussion w/ resident doctor tentative plan for
discharge tomorrow.
[2025-02-09] MEDS: LOVENOX 40 MG SC (16:36)
[2025-02-09 19:50] VITALS: BP 136/86
[2025-02-09] MEDS: MS CONTIN (EXTENDED RELEASE) 30 MG PO (20:14)
[2025-02-09 23:10] VITALS: BP 144/87
[2025-02-10] MEDS: ZOFRAN 4 MG IV (02:29)
[2025-02-10] MEDS: DILAUDID 2 MG PO ×2 (02:29→08:32)
[2025-02-10] MEDS: FLUSH (NSS) 2 FLUSH IV (02:30)
[2025-02-10 03:13] VITALS: BP 137/93
[2025-02-10 06:00] VITALS: BMI 26.3
[2025-02-10 06:20] LABS: Hematocrit 23.7 % (39.0-52.0); Hemoglobin 7.7 g/dL (13.0-18.0); Mean Corp Hgb Conc. 32.5 g/dL (33.0-37.0); Mean Corpuscular Volume 83.2 fL (80.0-94.0); Platelet Count 757 10^3/uL (130-400); Red Cell Dist. Width 17.6 % (11.5-14.5)
[2025-02-10 06:36] LABS: ALT (SGPT) 96 U/L (0-50); AST (SGOT) 198 U/L (17-59); Albumin 2.3 g/dl (3.5-5.0); Alkaline Phosphatase 694 U/L (38-126); Blood Urea Nitrogen 17 mg/dl (9-20); Calcium 8.3 mg/dl (8.4-10.2); Carbon Dioxide 33 mmol/L (22-30); Chloride 95 mmol/L (98-107); Estimated Creatinine Clearance > 125 ml/min; Glucose 134 mg/dl (70-99); Potassium 4.4 mmol/L (3.5-5.1); Sodium 129 mmol/L (135-145); Total Protein 5.6 g/dl (6.3-8.2); eGFR > 60.00
[2025-02-10 07:15] VITALS: BP 134/88
--- NOTE | 2025-02-10 07:15 | W.PN.HOSP.TC ---
Today's Communication/Plan
-
Discharge for today and follow-up with oncologist in future within a week.
Assessment / Plan
Assessment / Plan
Assessment/Plan
49-year-old transgender F with past medical history of gallstone pancreatitis (cholecystectomy 2022), significant psoriatic arthritis on Humira 2 years ago (not taking because she lost her insurance) presented with abdominal pain. CT findings
consistent with metastatic gastrointestinal malignancy with circumferential encasing the GE junction and likely metastases to the liver and ribs. 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
Pathology supplemental NexGen sequencing results are available. Patient has intact MMR proteins so does not appear to be a candidate for immunotherapy and has negative (1+) HER2/marva expression. So systemic treatment typically would be FOLFOX
without immunotherapy or Herceptin once social works out the insurance issues.
Oncologist recommended to add MS Contin at lowest (morphine sulfate extended release tablets), to continue p.o. Dilaudid for breakthrough pain, requested to discontinue oxycodone.
patient needs pathology reports hard copy for her family.
[facility] consulted and they can do both placement however prefer to do as outpatient due to high ear infection treatment placed in inpatient's, and asked for the date for starting her treatment, however the patient has no insurance which was confirmed
by social services manager, and oncologist aware of the situation.

---
#Unspecified GE junction neoplasm with metastases
- Presented with abdomen pain, weight loss; CT A/P with circumferential GE mass and signs of metastases to ribs and liver
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
- Tumor markers were sent out after arrival, CEA and AFP levels very high; oncology planning for OP PET/CT
- Continue with daily PPI prophylactically for now
- Follow-up pathology and plan for OP PET/CT
- CA 19-9 level high at 433
- IR biopsy of hepatic lesion requested -- the concern is the high AFP with hepatocellular carcinoma in the differential diagnosis -- liver biopsy took place on 02/01/25 -- follow-up on pathology results
- Hem/onc outpatient follow-up soon after discharge
- As of 02/04/25 -- patient is still having A LOT of pain -- started scheduled Oxycodone -- increased dose on 02/05/25 based on previous 24 hours use of breakthrough medications
- Patient had some hypoxia overnight, see below, could be related to not moving much due to pain, as well as new narcotic pain meds -- will keep current dose of Oxycodone as patient's pain is improving
very slowly
- S/p EGD on 01/29/25 with large, fungating and ulcerated mass concerning for GE junction cancer (Siewert type II lesion). S/p biopsies and biliary stent removed. Reviewed EGD findings at bedside this AM and based on EGD and prior imaging, highly
concerning for malignancy. Ultimately, defer to Oncology for further evaluation while awaiting for path results. For now, recommend ongoing supportive care with PPI BiD and anti-emetics for nausea.
#Transient Hypoxia 02/05/25 to 02/06/25 overnight
-Could be related to not moving much due to pain, as well as new narcotic pain meds -- will keep current dose of Oxycodone as patient's pain is improving very slowly
-CXR with pleural effusion -- small
-Spoke w/ pulmonary, just do incentive spirometry atelectasis
-Follow-up 2 view CXR tomorrow
- On 02/06 construction project coordinator consulted for transient hypoxemia noted overnight when she was sleeping the saturation was around mid 80s which responded well with supplemental oxygen currently she is on 2 L of nasal cannula. Stat ABG was unremarkable,
chest x-ray performed showed small left-sided pleural effusion, atelectasis. She is currently refused to discharge until pain is less than 6 out of 10.
-Vitals: BP 133/86, pulse rate 100, RR 16, temp 98.7, O2 sat 93 with 2 L
-WBC: 15.9--17.2 high, hemoglobin- 8--8.2--8.2
-ABG pH 7.49 high, HCO3 28.2 high, ABG O2 saturation 99.2--metabolic alkalosis, respiratory alkalosis mixed.
#Euvolemic hypotonic hyponatremia
- Suspect polydipsia on CLD, though cannot rule out SIADH with underlying malignancy
- Does not seem overly hypovolemic despite limited intake on CLD
- Sodium 134 on arrival, now stable around 130; serum osm 273
- Urine osmolality and urine sodium support SIADH
- 48 ounce dietary fluid restriction
- Recheck BMP
#Anemia of chronic disease
#Thrombocytosis
#Leukocytosis
- Suspect both of these are reactive to underlying metastatic disease
- Iron studies with elevated ferritin and low TIBC; Hgb down trended with IVF
- Also has a significant reactive thrombocytosis with platelets between 800-1000
- Consider hydroxyurea for thrombocytosis, defer to oncology
- Continue to trend CBC with differential
#Sinus Tachycardia
- Likely physiologically driven by pain and anxiety from hospitalization
- Initial concern for PE though CTA PE protocol negative for emboli
- Improving with IV fluids and analgesia
- Continue on telemetry
#Urinary retention (?)
- Mentions that she has had episodes where it takes her a while to void
- Renal function stable, has been able to void after waiting periods of time
- Continue bladder scan protocol with straight cath as needed
- Likely from BPH along with narcotic pain meds and comorbidities; appreciate urology
- Start Flomax on 02/02/25
- [place] catheter voiding trial on 02/03/25 -- passed it, continues to void well
#Psoriatic arthritis
- Has known diagnosis for which she previously took Humira
- No longer on Humira since losing health insurance 2 years ago
- No signs of acute flare at this time
#Worsening Back Pain
-Patient has had chronic back pain for the past 6 to 12 months, attributed to arthritis
-Given suspected cancer, and worsened upper and lower back pain, checked MRI T and L spine for any metastases or spinal cord issues -- but those were not present
-Pain control as above
#H/O cholecystitis C/B gallstone pancreatitis s/p cholecystectomy
#H/O CBD stent s/p removal on 01/28/2025
#Severe Protein Calorie Malnutrition
Diet: As tolerated with fluid restriction of 50 ounces.
DVT: Subq Lovenox,
Code: Full
Dispo: Home
She is currently refused to discharge until pain is less than 6 out of 10.
plan: Patient is discharging today.
Anticipated Discharge: Today
Subjective/Interval History
-
Date of Service: February 10, 2025
Overnight patient has pain on the scale of 8/10 and it is in the abdomen, spine, all over the body however morphine dosage increased from 15 mg--30 mg 12 hourly, acetaminophen 1000 mg 8 hourly, dexamethasone 4 mg 12 hourly for Hepatic pain, Dilaudid
2 mg 6 hourly oral yesterday. Patient is aware of the pain medications dosage. She denies fever, chills, chest pain, palpitation, nausea, vomiting.
Explained the pain medications last in detail with her today, she is willing to continue the chemotherapy once the paperwork for insurance authorization approval which will take a week, oncologist planning to start the chemotherapy JUAN once her
insurance approves her treatment in future.
Objective Data
-
Labs:
Laboratory Results
02/10/25
05:46
WBC 26.1 H
Hgb 7.7 L
Hct 23.7 L
Plt Count 757 H
Sodium 129 L
Potassium 4.4
Chloride 95 L
Carbon Dioxide 33 H
BUN 17
Creatinine 0.5 L
Glucose 134 H
Calcium 8.3 L
Total Bilirubin 0.9
AST 198 H
ALT 96 H
Alkaline Phosphatase 694 H
Vital Signs:
Vital Signs
Temp Pulse Resp BP Pulse Ox
98.1 F 70 18 137/93 96
02/10/25 03:13 02/10/25 03:13 02/10/25 03:13 02/10/25 03:13 02/10/25 03:13
I&O
02/09/25 02/10/25 02/11/25
06:59 06:59 06:59
Intake Total 480 / 480 660 / 660
Balance 480 / 480 660 / 660
Review of Systems
-
History Source: Patient
All other systems: Reviewed and negative
Physical Exam
-
General: Well Nourished and Pain (10/24)
Respiratory: Clear to Auscultation
Cardiac: Regular Rhythm
GI: Soft, Nontender and Nondistended
Genito-urinary: No Costovertebral Tender
Musculoskeletal: No Clubbing and No Edema
Skin: Warm
Neuro: AO x 3
Hematologic / Lymphatic: No Lymphadenopathy
Psych: Calm
[2025-02-10] MEDS: REGLAN 5 MG PO ×2 (08:32→12:12)
[2025-02-10] MEDS: VITAMIN B1 100 MG PO (08:32)
[2025-02-10] MEDS: FLOMAX 0.4 MG PO (08:32)
[2025-02-10] MEDS: MS CONTIN (EXTENDED RELEASE) 30 MG PO (08:32)
[2025-02-10] MEDS: DECADRON 4 MG PO (08:32)
[2025-02-10] MEDS: PROTONIX IV 40 MG IV (08:33)
[2025-02-10] MEDS: NSS (PRESERVATIVE FREE) 10 ML IV (08:33)
[2025-02-10] MEDS: TYLENOL 1000 MG PO (08:33)
[2025-02-10] MEDS: MIRALAX 17 GRAMS PO (08:34)
--- NOTE | 2025-02-10 13:49 | W.DCSUMMARY ---
Documented by User: Florencia Jackson MD, Resident 02/11/25 17:32
Discharge Summary
Discharge Data
Date of Admission: 01/28/25
Date of Discharge: 02/10/25
-
Pending Results: No
Hospital Course
Discharging Physician : Dr Larry Alarcon MD
Dr Florencia Jackson MD
Disposition : Home
Primary care physician : Unknown
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
Chronic Discharge diagnosis :
# Anemia of chronic disease diagnosed with iron studies and continued with ferrous sulfate, H&H monitored.
# Psoriatic arthritis was not on medication due to un insurance.
# Cholecystitis C/B gallstone pancreatitis s/p cholecystectomy.
# History of CBD stent s/p removal on 01/28/2025
# Severe protein calorie malnutrition.
# Urinary retention managed with Flomax, straight catheterization, [place] catheter voiding trial.
# Transient hypoxemia--chest x-ray with pleural effusion-small detected strategic insights lead consulted, ABG showed metabolic alkalosis, respiratory alkalosis mixed, administered 2 L of oxygen with nasal cannula.
Hospital Course : On 01/28 48-year-old old transferred past medical history gastroesophageal reflux disease, psoriatic arthritis, s/p cholecystectomy in 2022 secondary to gallstone pancreatitis, major depressive disorder, hypertriglyceridemia
presented with mid upper quadrant pain for the past 6 to 12 months with dysphagia and has been taking tylenol for the pain. After ERCP in 2022 was true for follow-up for stent removal but did not return because she lost the insurance. Patient was
doing well however she noted weight loss up to 50 LB's in the last year and tolerating for liquid foods. Commercial Print Salesman consulted and abdomen EGD scope be resulted partially obstructing, malignant esophageal tumor at the lower third of the
esophagus. Oncology consulted for further management, recommended iron studies showed chronic, iron deficiency anemia, liver biopsy due to high alpha-fetoprotein which is unexpected for an esophageal carcinoma, more consistent with differential
diagnosis include hepatocellular carcinoma, liver biopsy resulted adenocarcinoma, further MRI spine ordered, Flomax voiding trial for her urinary incontinence ordered. The diagnosis made as metastatic disease to liver from esophageal
adenocarcinoma. Customer Order Clerk consulted for hypoxia and recommended for pain medications and monitor vitals along with saturation. Oncologist discussed this case with Dr. Isabella Hernandez [facility] and recommended FOLFOX as per usual management of
metastatic gastric cancer. Pain management continued with morphine 10 mg up to 15 mg, Dilaudid, Tylenol. Radiologist consulted for port placement for further chemotherapy, however due to her lack of insurance could not start chemotherapy. Biopsy
results hardcopy given to the patient while on discharge. Patient was stable at the course of hospitalization and recommended her to follow-up within a week once her prior authorization got approved. Informed the patient regards the plan for
future OP medical marijuana evaluation for her chronic pain. Patient was IDDSI-4 diet, DVT -- SQ Lovenox, CODE -- Full for this admission.
IMPORTANT:
If your symptoms worsen when you get home, go to the Emergency Room if you cannot reach a doctor, or call 911
Important imaging findings :
01/28/25 US abdomen - preliminary- innumerable heterogeneous hypoechoic masses in liver concerning for mets, post yemi, no bile duct dilatation, right kidney normal no free fluid
01/28/25 CT a/p - circumferential mass at GE junction and gastric cardia appears to involve diaphragmatic silviano, few small lymph nodes innumerable low attenuation liver mets, large expansile destructive mets right anterior ninth ribs, CBD stent in
place, no biliary ductal dilatation
final read: 1. Innumerable hepatic metastases. Mild hepatic enlargement.2. Bowel wall thickening at the gastroesophageal junction, likely reflective of esophageal carcinoma.3. Enlarged lymph nodes near the gastroesophageal junction, measuring up to
1.2 cm in diameter.4. Expansile metastasis within the right anterior ninth rib, measuring 5.8 cm in greatest dimension.
Procedure findings :
On 01/28/25-esophagogastroduodenoscopy:
- Partially obstructing, malignant esophageal tumor was found in the lower third of the esophagus and at the gastroesophageal junction. Biopsied. Retained gastric fluid. Fluid aspiration performed. Biliary stent in the duodenum. Removed. bx
pending
Biopsy results:
Sections show carcinoma with a predominantly glandular growth pattern infiltrating hepatic parenchyma with extensive necrosis. The glands are lined by columnar cells which display marked cytologic atypia. By immunohistochemistry, the tumor is
positive for cytokeratin 7, mCEA, and SALL4. Her-2 is negative (score 1+). The tumor appears morphologically similar to the prior GE junction mass biopsy ([id number]). Expression of SALL4 may indicate a primitive enterocyte phenotype in the
adenocarcinoma, and can be seen in gastric adenocarcinoma associated with AFP production.
Pathology supplemental NexGen sequencing results are available. Patient has intact MMR proteins so does not appear to be a candidate for immunotherapy and has negative (1+) HER2/marva expression. So systemic treatment typically would be FOLFOX
without immunotherapy or Herceptin once social works out the insurance issues.
Discharge Plan
-
Patient Disposition: Home (Routine Discharge)
Discharge Diagnosis/Procedures: Metastatic gastroesophageal Adenocarcinoma with liver, rib lesions
Anemia of chronic disease
Cancer related pain
Sinus tachycardia
Urinary retention
Psoriatic arthritis
Worsening back pain
History of cholecystitis c/b gallstone pancreatitis s/p cholecystectomy
History of CBD stent s/p removal
Severe protein calorie malnutrition
Condition: Fair
Diet: As tolerated, Restrict fluids to 48 oz and Other diet
Additional Diets: Pur�ed diet
Activity: As tolerated
Driving Restrictions: Do not drive if pain medications sedate you
Bathing Restrictions: None
Blood Work: Follow-up with family doctor for CMP, CBC with differential, magnesium level, phosphorus level in 5 to 7 days as an outpatient
Activity Restrictions/Additional Instructions:
-Follow-up with oncologist as an OP after completing all the paperwork's for the insurance.
-MMR, PDL1 pending on path, may allow for immunotherapy or chemotherapy FOLFOX, also request Her2 testing
-Follow-up with PCP within few weeks of discharge
-Follow-up with strategic insights lead in 3-4 weeks after discharge
-Follow-up with residential real estate sales manager in 4-6 weeks of discharge.
-Take diet as tolerated.
Instructions: Malnutrition, Clear Liquid Diet, Syndrome of inappropriate antidiuretic hormone secretion (SIADH)
Referrals:
Sara Moya DO [Active, Pulmonary Medicine] - in three to four weeks
Referral Note: PFT
Tim Trevizo MD [Active, Gastroenterology] - in four to six weeks
Referral Note: Call Dr. Trevizo for path in 1 week if not prior to discharge
Betina Stauffer MD [Family Provider, Internal Medicine]
Additional Discharge Medication Instructions: Pain regimen: Tylenol 1 g every 6 hours, morphine ER 15 mg every 12 hours. Can use hydromorphone tablet 2 mg every 6 hours as needed for severe breakthrough pain. If you need refills you will need to
speak with your oncologist or family doctor
Prescriptions:
New
polyethylene glycol 3350 17 gram Powder In Packet
17 g PO DAILY Qty: 14 0RF
metoclopramide HCl 5 mg Tablet
5 mg PO ACHS Qty: 30 0RF
sennosides-docusate sodium [Senna Plus] 8.6-50 mg Tablet
1 tab PO DAILYPRN PRN (Reason: constipation) Qty: 30 0RF
acetaminophen [Tylenol Extra Strength] 500 mg tablet
1,000 mg PO Q6H 30 Days Qty: 240 0RF
morphine 15 mg tablet extended release
15 mg PO Q12H 7 Days Qty: 14 0RF
hydromorphone 2 mg tablet
2 mg PO Q6H PRN (Reason: SEVERE breakthrough pain) 7 Days Qty: 30 0RF
tamsulosin 0.4 mg capsule
0.4 mg PO HS 30 Days Qty: 30 0RF
Discharge Orders:
Discharge Patient (As Directed); Ordered 02/09/25
Ordered By: Florencia Jackson
Discharge Date and Time
Discharge Date/Time: 02/10/25 14:37
Print Language: MACANESE

Documented by User: Larry Alarcon DO 02/12/25 07:55
Discharge Summary
Discharge Data
Date of Admission: 01/28/25
Date of Discharge: 02/10/25
Total time spent discharging patient (in min): 39
Discharge Plan
-
Patient Disposition: Home (Routine Discharge)
Discharge Diagnosis/Procedures: Metastatic gastroesophageal Adenocarcinoma with liver, rib lesions
Anemia of chronic disease
Cancer related pain
Sinus tachycardia
Urinary retention
Psoriatic arthritis
Worsening back pain
History of cholecystitis c/b gallstone pancreatitis s/p cholecystectomy
History of CBD stent s/p removal
Severe protein calorie malnutrition
Condition: Fair
Diet: As tolerated, Restrict fluids to 48 oz and Other diet
Additional Diets: Pur�ed diet
Activity: As tolerated
Driving Restrictions: Do not drive if pain medications sedate you
Bathing Restrictions: None
Blood Work: Follow-up with family doctor for CMP, CBC with differential, magnesium level, phosphorus level in 5 to 7 days as an outpatient
Activity Restrictions/Additional Instructions:
-Follow-up with oncologist as an OP after completing all the paperwork's for the insurance.
-MMR, PDL1 pending on path, may allow for immunotherapy or chemotherapy FOLFOX, also request Her2 testing
-Follow-up with PCP within few weeks of discharge
-Follow-up with strategic insights lead in 3-4 weeks after discharge
-Follow-up with residential real estate sales manager in 4-6 weeks of discharge.
-Take diet as tolerated.
Instructions: Malnutrition, Clear Liquid Diet, Syndrome of inappropriate antidiuretic hormone secretion (SIADH)
Referrals:
Sara Moya, DO [Active, Pulmonary Medicine] - in three to four weeks
Referral Note: PFT
Tim Trevizo MD [Active, Gastroenterology] - in four to six weeks
Referral Note: Call Dr. Trevizo for path in 1 week if not prior to discharge
Betina Stauffer MD [Family Provider, Internal Medicine]
Additional Discharge Medication Instructions: Pain regimen: Tylenol 1 g every 6 hours, morphine ER 15 mg every 12 hours. Can use hydromorphone tablet 2 mg every 6 hours as needed for severe breakthrough pain. If you need refills you will need to
speak with your oncologist or family doctor
Prescriptions:
New
polyethylene glycol 3350 17 gram Powder In Packet
17 g PO DAILY Qty: 14 0RF
metoclopramide HCl 5 mg Tablet
5 mg PO ACHS Qty: 30 0RF
sennosides-docusate sodium [Senna Plus] 8.6-50 mg Tablet
1 tab PO DAILYPRN PRN (Reason: constipation) Qty: 30 0RF
acetaminophen [Tylenol Extra Strength] 500 mg tablet
1,000 mg PO Q6H 30 Days Qty: 240 0RF
morphine 15 mg tablet extended release
15 mg PO Q12H 7 Days Qty: 14 0RF
hydromorphone 2 mg tablet
2 mg PO Q6H PRN (Reason: SEVERE breakthrough pain) 7 Days Qty: 30 0RF
tamsulosin 0.4 mg capsule
0.4 mg PO HS 30 Days Qty: 30 0RF
Discharge Orders:
Discharge Patient (As Directed); Ordered 02/09/25
Ordered By: Florencia Jackson
Discharge Date and Time
Discharge Date/Time: 02/10/25 14:37
Print Language: MACANESE
[2025-02-10 14:15] VITALS: BP 143/94
--- NOTE | 2025-02-10 14:16 | CM ---
entered order for discharge.
Spoke with pt and sister Pamela.
Shanna will drive her home.
[facility]
Rosita Hawkins information given if needed before MA established.
Sister picked up meds at pharmacy.
[facility] Home no needs . Out pt follow up
== END 2025-02-10 14:37 | disposition home or self-care (01) | DRG 326 ==
LOC: 2 NORTH 05:17
PROVIDERS: Hospitalist; Internal Medicine Gastroenterology; Nurse Practitioner Adult Health; Radiology Vascular & Interventional Radiology; ADMITTING PHYSICIAN Hospitalist; ATTENDING PHYSICIAN Internal Medicine; CONSULT PHYSICIAN Internal Medicine; CONSULT PHYSICIAN Internal Medicine Hematology & Oncology; CONSULT PHYSICIAN Specialist; CONSULT PHYSICIAN Student in an Organized Health Care Education/Training Program; EMERGENCY PHYSICIAN Emergency Medicine; FAMILY PHYSICIAN Internal Medicine
PROC: 0DB38ZX Excision of Lower Esophagus, Via Natural or Artificial Opening Endoscopic, Diagnostic (ICD-10-PCS; 2025-01-28)
PROC: 0DC98ZZ Extirpation of Matter from Duodenum, Via Natural or Artificial Opening Endoscopic (ICD-10-PCS; 2025-01-28)
PROC: 0D968ZZ Drainage of Stomach, Via Natural or Artificial Opening Endoscopic (ICD-10-PCS; 2025-01-28)
PROC: 0FB03ZX Excision of Liver, Percutaneous Approach, Diagnostic (ICD-10-PCS; 2025-02-01)
DX: C16.0 Malignant neoplasm of cardia (principal); E43 Unspecified severe protein-calorie malnutrition; C78.7 Secondary malignant neoplasm of liver and intrahepatic bile duct; J98.11 Atelectasis; J90 Pleural effusion, not elsewhere classified; E87.3 Alkalosis; C79.51 Secondary malignant neoplasm of bone; E22.2 Syndrome of inappropriate secretion of antidiuretic hormone; D72.829 Elevated white blood cell count, unspecified; R09.02 Hypoxemia; R32 Unspecified urinary incontinence; R00.0 Tachycardia, unspecified; E88.09 Other disorders of plasma-protein metabolism, not elsewhere classified; R33.9 Retention of urine, unspecified; F64.0 Transsexualism; D75.838 Other thrombocytosis; L40.50 Arthropathic psoriasis, unspecified; R13.10 Dysphagia, unspecified; D50.9 Iron deficiency anemia, unspecified; F41.9 Anxiety disorder, unspecified; E78.1 Pure hyperglyceridemia; J45.909 Unspecified asthma, uncomplicated; R59.1 Generalized enlarged lymph nodes; G89.29 Other chronic pain; M54.9 Dorsalgia, unspecified; N40.1 Benign prostatic hyperplasia with lower urinary tract symptoms; D63.8 Anemia in other chronic diseases classified elsewhere; F32.9 Major depressive disorder, single episode, unspecified; Z59.71 Insufficient health insurance coverage; Z87.891 Personal history of nicotine dependence; Z82.49 Family history of ischemic heart disease and other diseases of the circulatory system; Z80.9 Family history of malignant neoplasm, unspecified; Z90.49 Acquired absence of other specified parts of digestive tract; Z68.26 Body mass index [BMI] 26.0-26.9, adult; Z87.19 Personal history of other diseases of the digestive system
CPT/HCPCS: 36600; 47000; 71045; 71275; 72157; 72158; 74019; 74177; 76700; 76942; 80053; 81003; 81015; 82105; 82248; 82378; 82728; 82805; 83540; 83550; 83690; 83735; 83880; 83930; 83935; 84100; 84300; 84703; 85025; 85027; 85610; 86301; 88305; 88307; 88333; 88334; 88341; 88342; 88360; 93005; 96361; 96374; 96375; 96376; 97163; 97167; 97530; 97535; 99152; 99153; 99285; A9575; G0103; Q9967